=== PATIENT | female | born 1955 | race Caucasian/White ===

== ENCOUNTER 2019-04-24 07:04 | Outpatient (CLI) | payer BC, SELFPAY ==
--- NOTE | ~2019-04-24 | MM_ITS ---
EXAMINATION: MM screening marty BI w bebeto HISTORY: Screening mammogram, family history of breast cancer in her mother and sister. TECHNIQUE: Craniocaudal and mediolateral oblique 3-D tomosynthesis images were obtained and synthetic 2-D images were generated. CAD analysis was submitted and interpreted. COMPARISON: 04/22/2018, 04/17/2017, 04/15/2016 BREAST PARENCHYMAL COMPOSITION: There are scattered areas of fibroglandular density. FINDINGS: RIGHT BREAST: An asymmetry is present in the subareolar aspect of the breast on the craniocaudal view . LEFT BREAST: There is no evidence of suspicious mass, calcification, or architectural distortion to s uggest malignancy. There has been no significant interval change. IMPRESSION: 1. Subareolar right breast asymmetry on the craniocaudal view. 2. Additional mammographic views and possible breast ultrasound are recommended. BI-RADS Category 0: Incomplete: Needs additional imaging evaluation. Reviewed, dictated and finalized at location A. EF MATE IMPRESSION: 1. Subareolar right breast asymmetry on the craniocaudal view. 2. Additional mammographic views and possible breast ultrasound are recommended . BI-RADS Category 0: Incomplete: Needs additional imaging evaluation.
== END 2019-04-24 07:05 | disposition home or self-care (01) ==
PROVIDERS: PCP Internal Medicine; Visit Provider Obstetrics & Gynecology
DX: Z12.31 Encounter for screening mammogram for malignant neoplasm of breast (principal); R92.8 Other abnormal and inconclusive findings on diagnostic imaging of breast
CPT/HCPCS: 77063; 77067

== ENCOUNTER → 2019-05-02 09:08 | Outpatient (CLI) | payer BC, SELFPAY ==
--- NOTE | ~2019-05-02 | MMUS_ITS ---
EXAMINATION: MM diagnostic mammo unilat RT, US breast RT limited HISTORY: Right breast asymmetry on screening mammogram TECHNIQUE: Additional 3-D tomosynthesis images of the right breast were performed and synthetic 2-D i mages were generated. CAD analysis was submitted and interpreted. High resolution limited right breas t ultrasound was performed. COMPARISON: 04/24/2019, 04/22/2018, 04/17/2017, 04/15/2016 FINDINGS: MAMMOGRAPHIC FINDINGS: A subtle asymmetry persists in the subareolar aspect of the slightly inner right breast with spot com pression. No suspicious calcification or architectural distortion are identified. ULTRASOUND: There is no evidence of focal abnormal solid or cystic lesion in the vicinity of the mammographic fin ding in question. IMPRESSION: 1. Probably benign right breast asymmetry. 2. Recommend 6 month follow-up right diagnostic mammogram and possible ultrasound. BI-RADS category 3, probably benign findings. Reviewed, dictated and finalized at location A. DING ARCHITECTURAL DESIGNER IMPRESSION: 1. Probably benign right breast asymmetry. 2. Recommend 6 month follow-up right diagnostic mammogram and possible ultrasou nd. BI-RADS category 3, probably benign findings.
== END ==
PROVIDERS: PCP Internal Medicine; Visit Provider Obstetrics & Gynecology
DX: R92.8 Other abnormal and inconclusive findings on diagnostic imaging of breast (principal)
CPT/HCPCS: 76642; 77065

== ENCOUNTER 2019-09-15 07:58 | Outpatient (CLI) | payer BC, SELFPAY ==
--- NOTE | ~2019-09-15 | DEXA_ITS ---
Bone Density Report Name: Cierra Patel Age: 64 Sex: Female Ethnicity: White Date of : 1955 Indication: osteopenia;postmenopausal Referring Provider: JESUS NGUYEN Study: Bone densitometry was performed. Exam Date: September 15, 2019 Accession number: [id number] Bone Density: Region BMD T-score Z-score Classification AP Spine (L1-L4) 0.775 -2.5 -0.8 Osteoporosis Femoral Neck (Left) 0.661 -1.7 -0.2 Osteopenia Total Hip (Left) 0.826 -1.0 0.2 Normal Total Hip Bilateral Avg 0.800 -1.2 0.0 Osteopenia Femoral Neck (Right) 0.607 -2.2 -0.7 Osteopenia Total Hip (Right) 0.773 -1.4 -0.2 Osteopenia World Health Organization criteria for BMD impression classify patients as: Normal (T-score at or above -1.0), Osteopenia (T-score between -1.0 and -2.5), or Osteoporosis (T-score at or below -2.5). 10-year Fracture Risk: FRAX not reported because: Some T-score for Spine Total or Hip Total or Femoral Neck at or below -2.5 Previous Exams: Region Exam Age BMD T-score BMD Change BMD Change Date g/cm2 vs Baseline vs Previous AP Spine(L1-L4) 09/15/2019 64 0.775 -2.5 0.096(14.2%)# -0.008(-1.1%) 08/31/2017 62 0.784 -2.4 0.104(15.4%)# 0.009(1.2%)# 08/19/2015 60 0.774 -2.5 0.095(14.0%)# -0.012(-1.5%) 08/15/2013 58 0.786 -2.4 0.107(15.8%)# 0.050(6.8%)* 08/03/2011 56 0.736 -2.8 0.057(8.5%)# 0.057(8.5%)# 07/24/2009 54 0.679 -3.3 Total Hip(Left) 09/15/2019 64 0.826 -1.0 0.057(7.4%)# -0.026(-3.0%) 08/31/2017 62 0.851 -0.7 0.083(10.8%)# -0.058(-6.4%)# 08/19/2015 60 0.909 -0.3 0.141(18.3%)# 0.044(5.1%)* 08/15/2013 58 0.866 -0.6 0.097(12.6%)# 0.019(2.3%) 08/03/2011 56 0.846 -0.8 0.077(10.1%)# 0.077(10.1%)# 07/24/2009 54 0.769 -1.4 Total Hip(Right) 09/15/2019 64 0.773 -1.4 0.014(1.8%)# -0.044(-5.4%)* 08/31/2017 62 0.817 -1.0 0.058(7.6%)# -0.032(-3.7%)# 08/19/2015 60 0.848 -0.8 0.089(11.7%)# 0.014(1.6%) 08/15/2013 58 0.834 -0.9 0.075(9.9%)# 0.024(2.9%) 08/03/2011 56 0.811 -1.1 0.052(6.8%)# 0.052(6.8%)# 07/24/2009 54 0.759 -1.5 *Denotes significance at 95% confidence level, LSC for AP Spine = 0.022 g/cm2, LSC for Total Hip = 0.027 g/cm2 Clinical Information Provided by Patient: Has used the following medications: Vitamin D, Calcium Patient maximum height was 63 Menopause Age: 55 Does not regularly consume dairy products Onset of menses at age 12 Number of children 2
== END 2019-09-15 07:59 | disposition home or self-care (01) ==
PROVIDERS: PCP Internal Medicine; Visit Provider Obstetrics & Gynecology
DX: Z78.0 Asymptomatic menopausal state (principal); M81.0 Age-related osteoporosis without current pathological fracture; M85.852 Other specified disorders of bone density and structure, left thigh; M85.851 Other specified disorders of bone density and structure, right thigh
CPT/HCPCS: 77080

== ENCOUNTER 2019-11-07 11:12 | Outpatient (CLI) | payer BC, SELFPAY ==
--- NOTE | ~2019-11-07 | MM_ITS ---
EXAMINATION: MM diagnostic marty RT w bebeto HISTORY: Follow-up right breast asymmetry TECHNIQUE: Additional 3-D tomosynthesis images of the right breast were performed and synthetic 2-D i mages were generated. CAD analysis was submitted and interpreted. COMPARISON: 04/13/2015 BREAST PARENCHYMAL COMPOSITION: Breast composed of scattered areas of fibroglandular density FINDINGS: The right breast is stable without evidence for malignancy. No suspicious masses, calcifica tions or architectural distortion in the right breast to suggest malignancy. IMPRESSION: 1. No mammographic evidence for malignancy in the right breast. 2. Routine yearly screening mammogram and regular clinical breast examination are recommended. BI-RADS Category 1: Negative Reviewed, dictated and finalized at location A. IMPRESSION: 1. No mammographic evidence for malignancy in the right breast. 2. Routine yearly screening mammogram and regular clinical breast examination a re recommended. BI-RADS Category 1: Negative
== END 2019-11-07 11:13 | disposition home or self-care (01) ==
LOC: ANHIMG 11:12
PROVIDERS: PCP Internal Medicine; Visit Provider Obstetrics & Gynecology
DX: R92.8 Other abnormal and inconclusive findings on diagnostic imaging of breast (principal)
CPT/HCPCS: 77061; 77065; G0279

== ENCOUNTER 2020-05-01 08:27 | Outpatient (CLI) | payer BC, SELFPAY ==
--- NOTE | ~2020-05-01 | MM_ITS ---
EXAMINATION: MM screening marty BI w bebeto HISTORY: Screening TECHNIQUE: Craniocaudal and mediolateral oblique 3-D tomosynthesis images were obtained and synthetic 2-D images were generated. CAD analysis was submitted and interpreted. COMPARISON: Comparison to multiple prior studies sequentially, with oldest reviewed study dated 04/15. BREAST PARENCHYMAL COMPOSITION: The breasts are heterogeneously dense, which may obscure small masses . FINDINGS: There is no evidence of suspicious mass, calcification, or architectural distortion to sugg est malignancy in either breast. There has been no suspicious interval change. IMPRESSION: 1. No mammographic evidence of malignancy. 2. Recommend routine screening mammography in one year. BI-RADS Category 1: Negative Reviewed, dictated and finalized at location A. CE MANAGER
== END 2020-05-01 08:28 | disposition home or self-care (01) ==
LOC: ANHIMG 08:28
PROVIDERS: PCP Internal Medicine; Visit Provider Obstetrics & Gynecology
DX: Z12.31 Encounter for screening mammogram for malignant neoplasm of breast (principal)
CPT/HCPCS: 77063; 77067

== ENCOUNTER 2020-07-13 11:15 | Outpatient (CLI) | payer BC, SELFPAY ==
--- NOTE | ~2020-07-13 | CT_ITS ---
EXAMINATION: CT abdomen pelvis w con DATE: 07/13/2020 11:54 INDICATION: Right lower quadrant abdominal pain and swelling. TECHNIQUE: Computed tomography (CT) of the abdomen and pelvis was performed with 100 mL Omnipaque 350 intravenous contrast. Automated exposure control and iterative reconstruction technique were employe d. The dose-length product was 215.62 mGy-cm. COMPARISON: Chest CT 09/28/2017 FINDINGS: The visualized portions of the lung bases demonstrate mild atelectasis and scarring. There is mild bronchiectasis in right lower lobe and right middle lobe. No pleural effusion. The heart size is normal. No pericardial effusion. There is a 6 mm cyst in the liver. The gallbladder, pancreas, an d adrenal glands are normal. Calcifications in the spleen are consistent with old granulomatous disea se. There is a 13 mm cyst in right kidney. Left kidney is normal. There are no dilated loops of bowel . The appendix is not visualized. There are no pathologically enlarged lymph nodes. There is no free intraperitoneal fluid. There is moderate lumbar spondylosis. IMPRESSION: 1. No etiology for the patient's symptoms. Reviewed, dictated and finalized at location B.
[2020-07-13 11:47] LABS: Estimated Glomerular Filt Rate > 60
== END 2020-07-13 11:16 | disposition home or self-care (01) ==
PROVIDERS: PCP Internal Medicine; Visit Provider Internal Medicine
DX: R19.03 Right lower quadrant abdominal swelling, mass and lump (principal)
CPT/HCPCS: 74177; Q9967

== ENCOUNTER 2021-03-23 12:58 | Outpatient (CLI) | payer BC, SELFPAY ==
[2021-03-23 14:36] LABS: Influenza A QL RT-PCR Negative (Negative); Influenza B QL RT-PCR Negative (Negative); SARS-CoV-2 RNA PCR Positive (Negative)
== END 2021-03-23 12:59 | disposition home or self-care (01) ==
LOC: CHSLAB 13:01
PROVIDERS: PCP Internal Medicine; Visit Provider Internal Medicine
DX: U07.1 COVID-19 (principal); R68.89 Other general symptoms and signs
CPT/HCPCS: 87502; C9803; U0003; U0005

== ENCOUNTER 2021-05-02 08:46 | Outpatient (CLI) | payer MEDICARE, SELFPAY ==
--- NOTE | ~2021-05-02 | MM_ITS ---
EXAMINATION: MM screening marty BI w bebeto HISTORY: Screening TECHNIQUE: Craniocaudal and mediolateral oblique 3-D tomosynthesis images were obtained and synthetic 2-D images were generated. CAD analysis was submitted and interpreted. COMPARISON: Comparison to multiple prior studies sequentially, with oldest reviewed study dated 04/17. BREAST PARENCHYMAL COMPOSITION: There are scattered areas of fibroglandular density. FINDINGS: There is no evidence of suspicious mass, calcification, or architectural distortion to sugg est malignancy in either breast. There has been no suspicious interval change. IMPRESSION: 1. No mammographic evidence of malignancy. 2. Recommend routine screening mammography in one year. BI-RADS Category 1: Negative Reviewed, dictated and finalized at location A. NIB GRINDER
== END 2021-05-02 08:47 | disposition home or self-care (01) ==
LOC: ANHIMG 08:49
PROVIDERS: PCP Internal Medicine; Visit Provider Obstetrics & Gynecology
DX: Z12.31 Encounter for screening mammogram for malignant neoplasm of breast (principal)
CPT/HCPCS: 77063; 77067

== ENCOUNTER 2021-09-30 08:53 | Outpatient (CLI) | payer MEDICARE, SELFPAY ==
--- NOTE | ~2021-09-30 | US_ITS ---
EXAMINATION: US abdomen complete DATE: 09/30/2021 09:47 INDICATION: Epigastric pain TECHNIQUE: Multiple grayscale and Doppler ultrasound images of the abdomen were obtained. COMPARISON: 07/31/2018; CT, 07/13/2020 FINDINGS: Bowel gas obscures visualization of the pancreas. The visualized portions of the pancreas a re unremarkable. The liver is normal with normal echogenicity and echotexture. No surface nodularity. Normal hepatopetal flow in the main portal vein. The gallbladder is normal with no abnormal wall thi ckening, pericholecystic fluid or stones. The normal common bile duct measures 2 mm. There was no son ographic Chopra sign. The visualized portions of the aorta and inferior vena cava are normal. The right kidney measures 8.1 x 3.2 x 3.5 cm and contains a 1.5 cm cyst. The left kidney measures 9.7 x 4.3 x 5.5 cm. The kidneys demonstrate normal parenchymal echogenicity. There is no hydronephrosis. The spleen is normal in appearance and measures 9.4 cm. IMPRESSION: 1. No sonographic correlate for the patient's symptoms. Reviewed, dictated and finalized at location B.
== END 2021-09-30 08:54 | disposition home or self-care (01) ==
PROVIDERS: PCP Internal Medicine; Visit Provider Internal Medicine
DX: R10.13 Epigastric pain (principal); R10.11 Right upper quadrant pain
CPT/HCPCS: 76700

== ENCOUNTER 2021-10-28 08:53 | Outpatient (CLI) | payer MEDICARE, SELFPAY ==
--- NOTE | ~2021-10-28 | XR_ITS ---
EXAMINATION:XR_CERV2-3V_CR, XR thoracic spine 3V DATE: 10/28/2021 09:22 INDICATION: Right sided neck and shoulder pain radiating down the arm TECHNIQUE: 1. AP, lateral, lateral swimmer's and odontoid views of the cervical spine are provided. 2. AP, lateral and lateral swimmer's views of the thoracic spine were obtained. COMPARISON: None FINDINGS: Cervical spine: Alignment is normal. Odontoid is intact. Normal atlantoaxial interval. Vertebral body heights are no rmal. Disc spaces are normal. Multilevel mild uncovertebral osteoarthritis and relatively symmetric m oderate cervical facet osteoarthritis. Prevertebral soft tissues are normal. Thoracic spine: Degree thoracic dextrocurvature between T4 and T8. Vertebral body heights are normal. Multilevel mild disc height loss in the mid to lower thoracic spine with small degenerative endplate osteophytes. Mo derate disc height loss at L1-L2. Paravertebral soft tissues are unremarkable. Visualized portion of the lungs are clear with no pleural effusion or pneumothorax. Cardiomediastinal silhouette is normal. IMPRESSION: 1. Multilevel moderate bilateral cervical facet osteoarthritis without associated cervical disc heigh t loss. 2. Mild thoracic and moderate upper lumbar spondylosis. Reviewed, dictated and finalized at location A. IMPRESSION: 1. Multilevel moderate bilateral cervical facet osteoarthritis without associat ed cervical disc height loss. 2. Mild thoracic and moderate upper lumbar spondylosis.
--- NOTE | ~2021-10-28 | XR_ITS ---
XR shoulder RT min 2V 10/28/2021 09:22 INDICATION: Right shoulder pain PROCEDURE: 4 views right shoulder COMPARISON: No prior studies for comparison. FINDINGS: Fracture, dislocation or subluxation is not identified. The soft tissues appear within norm al limits. No foreign bodies are identified. IMPRESSION: 1: NO ACUTE BONE OR JOINT ABNORMALITY IDENTIFIED. Reviewed, dictated and finalized at location A.
== END 2021-10-28 08:54 | disposition home or self-care (01) ==
PROVIDERS: PCP Internal Medicine; Visit Provider Internal Medicine
DX: M25.511 Pain in right shoulder (principal); M85.88 Other specified disorders of bone density and structure, other site; M47.816 Spondylosis without myelopathy or radiculopathy, lumbar region; M47.814 Spondylosis without myelopathy or radiculopathy, thoracic region
CPT/HCPCS: 72040; 72072; 73030

== ENCOUNTER 2021-11-09 13:53 | Outpatient (CLI) | payer MEDICARE, SELFPAY ==
--- NOTE | ~2021-11-09 | DEXA_ITS ---
Bone Density Report Name: THOMAS PONCE Age: 66 Sex: Female Ethnicity: White Date of : 1955 Indication: postmenopausal osteoporosis; monitoring treatment; height loss; Referring Provider: JOHN VIDALES Study: Bone densitometry was performed. Exam Date: November 09, 2021 Accession number: [id number] Bone Density: Region BMD T-score Z-score Classification AP Spine(L1-L4) 0.793 -2.3 -0.4 Osteopenia Femoral Neck (Left) 0.678 -1.5 0.1 Osteopenia Total Hip (Left) 0.818 -1.0 0.3 Normal Femoral Neck (Right) 0.632 -2.0 -0.4 Osteopenia Total Hip (Right) 0.798 -1.2 0.1 Osteopenia Total Hip Mean 0.808 -1.1 0.2 Osteopenia World Health Organization criteria for BMD impression classify patients as: Normal (T-score at or above -1.0), Osteopenia (T-score between -1.0 and -2.5), or Osteoporosis (T-score at or below -2.5). 10-year Fracture Risk(1): Major Osteoporotic Fracture 9.8% Hip Fracture 1.6% Reported Risk Factors: [place] (), Neck BMD=0.632, BMI=21.4 (1) FRAX(R) Version 3.08. Fracture probability calculated for an untreated patient. Fracture probability may be lower if the patient has received treatment. Previous Exams: Region Exam Age BMD T-score BMD Change BMD Change Date g/cm2 vs Baseline vs Previous AP Spine (L1-L4) 11/09/2021 66 0.793 -2.3 0.057 (7.7%)* 0.018 (2.3%)# 09/15/2019 64 0.775 -2.5 0.039 (5.3%)# -0.008 (-1.1%) 08/31/2017 62 0.784 -2.4 0.047 (6.4%)# 0.009 (1.2%)# 08/19/2015 60 0.774 -2.5 0.038 (5.1%)* -0.012 (-1.5%) 08/15/2013 58 0.786 -2.4 0.050 (6.8%)* 0.050 (6.8%)* 08/03/2011 56 0.736 -2.8 Total Hip(Left) 11/09/2021 66 0.818 -1.0 -0.028 (-3.4%) -0.008 (-1.0%) 09/15/2019 64 0.826 -1.0 -0.020 (-2.4%) -0.026 (-3.0%) 08/31/2017 62 0.851 -0.7 0.005 (0.6%)# -0.058 (-6.4%) 08/19/2015 60 0.909 -0.3 0.063 (7.5%)* 0.044 (5.1%)* 08/15/2013 58 0.866 -0.6 0.019 (2.3%) 0.019 (2.3%) 08/03/2011 56 0.846 -0.8 Total Hip(Right) 11/09/2021 66 0.798 -1.2 -0.013 (-1.6%) 0.025 (3.3%) 09/15/2019 64 0.773 -1.4 -0.038 (-4.7%) -0.044 (-5.4%) 08/31/2017 62 0.817 -1.0 0.006 (0.7%)# -0.032 (-3.7%) 08/19/2015 60 0.848 -0.8 0.037 (4.6%)* 0.014 (1.6%) 08/15/2013 58 0.834 -0.9 0.024 (2.9%) 0.024 (2.9%) 08/03/2011 56 0.811 -1.1 *Denotes significance at 95% confidence level, LSC for AP Spine = 0.022 g/cm2, LSC for Total Hip = 0.027 g/cm2 # Denotes dissimilar scan types or analysis methods Clinical Info
== END 2021-11-09 13:54 | disposition home or self-care (01) ==
PROVIDERS: PCP Internal Medicine; Referring Provider Obstetrics & Gynecology; Visit Provider Internal Medicine
DX: Z78.0 Asymptomatic menopausal state (principal); M81.0 Age-related osteoporosis without current pathological fracture; M85.88 Other specified disorders of bone density and structure, other site; M85.852 Other specified disorders of bone density and structure, left thigh; M85.851 Other specified disorders of bone density and structure, right thigh
CPT/HCPCS: 77080

== ENCOUNTER 2022-02-01 13:56 | Outpatient (CLI) | payer MEDICARE, SELFPAY ==
--- NOTE | ~2022-02-01 | XR_ITS ---
EXAMINATION: XR lumbar spine 6V w bending DATE: 02/01/2022 14:19 INDICATION: Left-sided groin pain TECHNIQUE: Anteroposterior, lateral in neutral, flexion and extension, and bilateral oblique views of the lumbar spine, and cone-down lateral view of the lumbosacral junction were obtained. COMPARISON: 12/01/2011 FINDINGS: There is no fracture, dislocation, or subluxation. There is no laxity with flexion or exten renay. The vertebral body heights are normal. There is moderate loss of intervertebral disc space heig ht at L1-2 and moderate loss of disc space height throughout the remainder of the lumbar spine. The v ertebral body heights are normal. Small degenerative osteophytes project from the anterior endplates of multiple vertebral bodies. There is moderate facet joint osteoarthritis of the lower lumbar spine. IMPRESSION: 1. Mild lumbar spondylosis without acute findings. Reviewed, dictated and finalized at location B. OPERATOR
--- NOTE | ~2022-02-01 | XR_ITS ---
EXAM: XR pelvis 1-2V DATE: 02/01/2022 14:19 HISTORY: R10.30 - LEFT SIDE GROIN HIP PAIN. NKI . COMPARISON: 12/01/2011. FINDINGS: Decreased mineralization. No fracture or dislocation. No lytic or blastic lesion. Mild deg enerative change in the lumbar spine, bilateral hips, and pubic symphysis. Mild pelvic and hip enthes opathy. Amorphous foci of calcification at the left greater trochanter. No erosion or periosteal workman ge. Soft tissues within normal limits. IMPRESSION: Mild bilateral hip osteoarthritic. Mild calcific tendinitis at the left greater trochante r. Reviewed, dictated and finalized at location K. LATOR MECHANIC IMPRESSION: Mild bilateral hip osteoarthritic. Mild calcific tendinitis at the left greater trochanter.
== END 2022-02-01 13:57 | disposition home or self-care (01) ==
LOC: ANHIMG 13:59
PROVIDERS: PCP Internal Medicine; Visit Provider Internal Medicine
DX: R10.30 Lower abdominal pain, unspecified (principal); M47.896 Other spondylosis, lumbar region
CPT/HCPCS: 72114; 72170

== ENCOUNTER → 2022-02-11 09:24 | Outpatient (CLI) | payer MEDICARE, SELFPAY ==
--- NOTE | ~2022-02-11 | MR_ITS ---
EXAMINATION: MR lumbar spine wo con DATE: 02/11/2022 10:07 INDICATION: Low back pain. TECHNIQUE: Magnetic resonance imaging (MRI) of the lumbar spine was performed without intravenous con trast. Sequences included sagittal T2-weighted FSE, sagittal T2-weighted FS FSE, sagittal T1-weighted FSE, and axial T2-weighted FSE. COMPARISON: Lumbar spine radiographs dated 02/11/2022 FINDINGS: 13 degree lumbar dextroscoliosis. Sagittal alignment is normal. Vertebral body heights are normal. Mo derate right anterior predominant disc height loss at L1-L2 with associated fibrofatty degenerative e ndplate changes. Mild right-sided disc height loss at T12-L1, moderate left-sided disc height loss at L2-L3 and L3-L4 and more diffuse mild disc height loss at L4-L5 and L5-S1. T1 hyperintense hemangiom as at L3 and T12. The conus medullaris terminates at L1-L2. There is normal signal in the caudal spin al cord. 1.8 cm T2 hyperintense right renal cyst. Paravertebral soft tissues are otherwise unremarkab le. The following disc levels are specifically discussed: T12-L1: Disc is mildly bulging. There is mild bilateral facet joint osteoarthritis. There is no neura l foraminal stenosis. There is negligible central canal stenosis. L1-L2: Diffuse disc bulge with superimposed annular fissure and small right central disc extrusion wi th disc material extending up to 5 mm caudal to the level of the superior endplate of L2. There is mi ld bilateral facet joint osteoarthritis. There is mild bilateral neural foraminal stenosis. There is mild central canal stenosis. L2-L3: Disc is mildly bulging with right foraminal zone annular fissure There is mild bilateral facet joint osteoarthritis. There is mild bilateral neural foraminal stenosis. There is mild central canal stenosis. L3-L4: Moderate diffuse disc bulge with right foraminal zone annular fissure. There is mild right and moderate left facet joint osteoarthritis. There is mild bilateral neural foraminal stenosis. There i s mild central canal stenosis. L4-L5: Moderate diffuse disc bulge with superimposed annular fissures at the bilateral foraminal zone s. There is moderate to severe bilateral facet joint osteoarthritis. There is mild right and mild to moderate left neural foraminal stenosis. There is mild central canal stenosis. L5-S1: Disc is mildly bulging with left foraminal zone annular fissure. There is moderate bilateral f acet joint osteoarthritis. There is minimal bilateral neural foraminal stenosis. There is no central canal stenosis. IMPRESSION: 1. 13 degrees lumbar dextroscoliosis with moderate spondylosis. Reviewed, dictated and finalized at location A. ET TEST FIRE WORKER
== END ==
PROVIDERS: PCP Internal Medicine; Visit Provider Internal Medicine
DX: R20.2 Paresthesia of skin (principal); M47.896 Other spondylosis, lumbar region
CPT/HCPCS: 72148

== ENCOUNTER 2022-04-25 12:39 | Outpatient (CLI) | payer MEDICARE, SELFPAY ==
--- NOTE | ~2022-04-25 | XR_ITS ---
EXAMINATION: XR lg joint inject/asp w image DATE: 04/25/2022 13:48 INDICATION: Left hip arthritis. TECHNIQUE: A time-out was performed to verify the patient's name, date of , and procedure to b e performed. The procedure including the risks, benefits, and alternatives was discussed with the pat ient. Risks discussed included bleeding and infection. The patient understood the risks and agreed to proceed. The skin overlying the left hip joint was prepped and draped in usual sterile fashion. An esthetic was administered with 1% lidocaine subcutaneously. A 22 G needle was advanced under fluoros copic guidance into the joint. Subsequently, injectate consisting of 2 mL 0.5% bupivacaine and 1 mL 80 mg/mL Depo-Medrol was instilled. The needle was removed and the entry site was cleaned and dresse d. There were no immediate complications. Fluoroscopy exposure time was 0.1 minutes. The total numbe r of images was 1. FINDINGS: Real-time fluoroscopy demonstrates the needle in the left hip joint. Patient's pain prior t o procedure:7/10. Patient's pain following the procedure: 0/10. IMPRESSION: 1. Fluoroscopy guided left hip joint injection of local anesthetic and steroid with decrease in the p atient's presenting pain. Reviewed, dictated and finalized at location A. LOPMENTAL THERAPIST IMPRESSION: 1. Fluoroscopy guided left hip joint injection of local anesthetic and steroid with decrease in the patient's presenting pain.
== END 2022-04-25 12:40 | disposition home or self-care (01) ==
PROVIDERS: PCP Internal Medicine; Visit Provider Nurse Practitioner Family
DX: M16.12 Unilateral primary osteoarthritis, left hip (principal)
CPT/HCPCS: 20610; 77002

== ENCOUNTER 2022-06-05 07:15 | Outpatient (CLI) | payer MEDICARE, SELFPAY ==
--- NOTE | ~2022-06-05 | MM_ITS ---
EXAMINATION: MM screening marty BI w bebeto HISTORY: Screening mammogram, family history of breast cancer in her mother and sister. TECHNIQUE: Craniocaudal and mediolateral oblique 3-D tomosynthesis images were obtained and synthetic 2-D images were generated. CAD analysis was submitted and interpreted. COMPARISON: 05/02/2021, 05/01/2020, 04/24/2019 BREAST PARENCHYMAL COMPOSITION:The breasts are heterogeneously dense, which may obscure small masses. FINDINGS: No suspicious mass, calcification, or architectural distortion are identified in either farhan ast to suggest malignancy. There has been no suspicious interval change. IMPRESSION: No mammographic evidence of malignancy. Recommend routine screening mammography in one year. BI-RADS Category 1: Negative Reviewed, dictated and finalized at location .
== END 2022-06-05 07:16 | disposition home or self-care (01) ==
LOC: ANHIMG 07:17
PROVIDERS: PCP Internal Medicine; Visit Provider Obstetrics & Gynecology
DX: Z12.31 Encounter for screening mammogram for malignant neoplasm of breast (principal)
CPT/HCPCS: 77063; 77067

== ENCOUNTER 2022-07-18 08:38 | Outpatient (CLI) | payer MEDICARE, SELFPAY ==
--- NOTE | ~2022-07-18 | XR_ITS ---
EXAMINATION: XR chest 2V DATE: 07/18/2022 09:03 INDICATION: Shortness of breath TECHNIQUE: PA and lateral views of the chest are obtained. COMPARISON: None available FINDINGS: The lungs are free of acute opacities. There appears to be a 6 mm nodule in the left lower lobe. No pleural effusion or pneumothorax. The cardiomediastinal silhouette is normal. There is mild thoracic spondylosis. IMPRESSION: 1. Possible nodule of the left lower lobe. Follow-up with low-dose CT of the chest is recommended. Reviewed, dictated and finalized at location L. IMPRESSION: 1. Possible nodule of the left lower lobe. Follow-up with low-dose CT of the ch est is recommended.
[2022-07-18 09:35] LABS: Free T4 Free Thyroxine 1.25 ng/mL (0.78-2.19)
[2022-07-18 09:41] LABS: Thyroid Stimulating Hormone 0.597 uIU/mL (0.465-4.680)
== END 2022-07-18 08:39 | disposition home or self-care (01) ==
PROVIDERS: PCP Internal Medicine; Visit Provider Internal Medicine
DX: R06.02 Shortness of breath (principal); R00.2 Palpitations; Z13.29 Encounter for screening for other suspected endocrine disorder
CPT/HCPCS: 36415; 71046; 84439; 84443

== ENCOUNTER 2022-07-20 08:33 | Outpatient (CLI) | payer MEDICARE, SELFPAY ==
--- NOTE | ~2022-07-20 | CT_ITS ---
Clinical Indication: Abnormal chest x-ray CT Scan of the Chest with Contrast: Technique: Contiguous sections were acquired throughout the chest after intravenous administration of 75 cc of Omnipaque 350. Dose reduction technique was used on this scan by utilizing automated exposu re control and iterative reconstruction technique. The dose-length product (DLP) was 126.79 mGy-cm. COMPARISON: Chest x-ray dated 07/18/2022, prior CT dated 09/28/2017 Findings: There is no evidence of any significant mediastinal, hilar or axillary lymphadenopathy. There is no f illing defect in the pulmonary arterial tree to suggest pulmonary embolus. There is no evidence of ao rtic dissection or aneurysm. There is no evidence of pleural or pericardial effusion. There is linear scarring at the lingula. There is a somewhat irregular/amorphous nodular opacity in t he medial right upper lobe measuring approximately 1.5 cm in maximum diameter (axial image 50). Images through the upper abdomen reveal no abnormalities. Impression: Irregular somewhat nodular 1.5 cm opacity in the medial right upper lobe, nonspecific. This could ref lect focal atelectasis or scarring, or focal pneumonitis. Neoplastic lesion not completely excluded, although the morphology is less suggestive of such a diagnosis. Recommend short-term follow-up CT in 1-3 months to reassess. No other significant findings. Reviewed, dictated and finalized at [facility]. Impression: Irregular somewhat nodular 1.5 cm opacity in the medial right upper lobe, nonsp ecific. This could reflect focal atelectasis or scarring, or focal pneumonitis. Neoplastic lesion not completely excluded, although the morphology is less sug gestive of such a diagnosis. Recommend short-term follow-up CT in 1-3 months to reassess. No other significant findings.
== END 2022-07-20 08:34 | disposition home or self-care (01) ==
PROVIDERS: PCP Internal Medicine; Visit Provider Internal Medicine
DX: R91.1 Solitary pulmonary nodule (principal); R93.89 Abnormal findings on diagnostic imaging of other specified body structures
CPT/HCPCS: 71260; Q9967

== ENCOUNTER 2022-07-22 09:34 | Outpatient (CLI) | payer MEDICARE, SELFPAY ==
--- NOTE | ~2022-07-22 | XR_ITS ---
EXAMINATION: SNIFF TEST W/O CXR +FLUORO<1HR DATE: 02/22/11 11:13:00 INDICATION: Personal history of other specified conditions TECHNIQUE: Fluoroscopy was utilized for evaluation of diaphragmatic excursion with rapid inspiration. Fluoroscopy exposure time was 0.7 minutes. The DAP for this procedure was 5.5 Gycm2. COMPARISON: None. FINDINGS: There is relatively symmetric caudal excursion of both the left and right leaves of the nicole phragm with rapid inspiration. The lungs are free of acute opacities. No pleural effusion or pneumoth orax. The cardiomediastinal silhouette is normal. There is moderate thoracic spondylosis. IMPRESSION: 1. Normal sniff test. No evidence of phrenic nerve palsy. Reviewed, dictated and finalized at location A.
== END 2022-07-22 09:35 | disposition home or self-care (01) ==
PROVIDERS: PCP Internal Medicine; Visit Provider Internal Medicine
DX: R06.02 Shortness of breath (principal); Z87.898 Personal history of other specified conditions
CPT/HCPCS: 71046; 76000

== ENCOUNTER 2022-07-31 13:33 | Outpatient (CLI) | payer MEDICARE, SELFPAY ==
--- NOTE | 2022-07-31 16:49 | WPDPFTINT ---
PFT Procedure Performed PFT Procedure Performed Spirometry with Pre/Post Bronchodilator Plethysmography (Lung Vol) Diffusing Cap (DLCO) Flow Vol Loop PFT Interpretation This is a pulmonary function test with pre and post-bronchodilator spirometry, plethysmography and diffusing capacity. The test was performed and results interpreted in accordance with the 2019 and 2005 ATS/ERS Task Force guidelines respectively using the Global Lung Function Initiative-2012 reference equations. Patient demonstrated good effort and cooperation. Reproducibility criteria were met. The quality of the pre bronchodilator spirometry maneuver was Grade A and post bronchodilator spirometry maneuver was Grade A. Findings: Spirometry: The contour the inspiratory and expiratory flow tracing are normal. The pre bronchodilator FVC is 3.13 L, 110% predicted. The pre bronchodilator FEV1 is 2.35 L, 106% predicted. The pre bronchodilator FEV1: FVC ratio 75%. The post bronchodilator FVC is 3.25 L, representing a 4% increase. The post bronchodilator FEV1 is 2.46 L, representing a 4% increase. The post bronchodilator FEV1: FVC ratio 75%. Plethysmography: The total lung capacity is 4.97 L, 101% predicted. The functional residual capacity is 3.10 L, 111% predicted. The residual volume is 1.84 L, 88% predicted. Diffusing capacity: The diffusing capacity unadjusted for hemoglobin and carboxyhemoglobin is 18.9, 92% predicted. The diffusing capacity adjusted for alveolar volume is 4.94, 113% predicted. Impression: The spirometry is normal without evidence of an obstructive abnormality. There is no significant improvement after inhaling a single dose of albuterol. The lung volumes are normal. The diffusing capacity is normal. There are no prior studies for comparison
== END 2022-07-31 13:34 | disposition home or self-care (01) ==
LOC: ANHLAB 13:33
PROVIDERS: PCP Internal Medicine; Visit Provider Internal Medicine
DX: R06.02 Shortness of breath (principal)
CPT/HCPCS: 94060; 94726; 94729

== ENCOUNTER 2022-08-01 08:00 | Outpatient (CLI) | payer MEDICARE, SELFPAY ==
--- NOTE | ~2022-08-01 | PE_ITS ---
EXAMINATION: PET skull to mid thigh DATE: 08/01/2022 09:50 INDICATION: 1.5 cm solitary right upper lobe nodule TECHNIQUE: Blood glucose level was 88 mg/dL. 8.772 mCi of 18-fluorodeoxyglucose (18-FDG) was administ ered i.v. Low dose computed tomography (CT) images were acquired from the base of the brain to the pr oximal thighs for attenuation correction and anatomic localization. Positron emission tomography (PET ) images were acquired in the same distribution beginning 54 minutes after injection. Images includin g fused PET/CT images were reconstructed in axial, coronal, and sagittal planes. Automated exposure c ontrol technique was employed. The dose-length product was 481.20mGy-cm. COMPARISON: Chest CT dated 07/20/2022 FINDINGS: Head/neck: There is symmetric increased activity in the oral cavity, palatine tonsils, parotid glands, submandi bular glands, laryngeal muscles and ocular muscles without CT correlate, likely physiologic. No patho logically enlarged cervical lymphadenopathy or suspicious foci of increased FDG uptake in the visuali zed head or neck. Chest: Mild FDG activity associated with the previous noted small subsolid nodular lesion in the paramediast inal anterior segment of the right upper lobe with maximal SUV of 3.2 which remains of slightly lower intensity than the activity in the liver. The lesion measures approximately 12 x 6 mm in maximal nicole meter on the current study. No abnormal uptake associated with a 4 mm likely intrafissural lymph node along the right minor fissure. Mild linear bands of discoid atelectasis/scarring in the lingula, rig ht middle and right lower lobes. Heart size is normal. No pericardial effusion. Thoracic aorta is nor mal in caliber. No pathologically enlarged or abnormally FDG avid thoracic lymphadenopathy. Abdomen/pelvis/proximal thighs: Physiologic renal accumulation and excretion of FDG activity in the kidneys, bladder and along portio ns of ureters. Normal degree and heterogenous pattern of increased uptake throughout the liver withou t radiologic correlate or dominant FDG avid lesion. Several splenic calcific lesions consistent with old granulomatous disease. The gallbladder, pancreas and bilateral adrenal glands are normal. Mild up take scattered throughout the bowels without radiologic correlate, also likely physiologic. Uterus is unremarkable. No other abnormal foci of increased FDG uptake or pathologically enlarged lymphadenopa thy in the abdomen, pelvis or proximal thighs. Musculoskeletal: There is moderate left-sided and mild right-sided uptake associated with severe bilateral facet osteo arthritis at L4-L5. Additional mild likely degenerative versus enthesopathic uptake without radiologi c correlate located at the tips of the L2-L4 spinous processes no suspicious lytic, blastic or other abnormally FDG avid bone lesions. IMPRESSION: 1. Mild FDG activity associated with the previously noted small paramediastinal nodule in the anterio r left upper lobe which appears slightly decreased in size in the current study. While the relatively low FDG activity and suggestion of decreased size is reassuring the nodule remains indeterminate for low-grade malignancy versus an infectious/inflammatory nodule and would recommend 3 month follow-up low-dose noncontrast chest CT. 2. No FDG avid lesions suspicious for metastatic disease. Reviewed, dictated and finalized at location A. IMPRESSION: 1. Mild FDG activity associated with the previously noted small paramediastinal nodule in the anterior left upper lobe which appears slightly decreased in siz e in the current study. While the relatively low FDG activity and suggestion of decreased size is reassuring the nodule remains indeterminate for low-grade ma lignancy versus an infectious/inflammatory
[2022-08-01 08:22] LABS: Glucose Point of Care 88 mg/dl (65-105)
== END 2022-08-01 08:01 | disposition home or self-care (01) ==
PROVIDERS: PCP Internal Medicine; Visit Provider Internal Medicine
DX: R91.1 Solitary pulmonary nodule (principal); R93.89 Abnormal findings on diagnostic imaging of other specified body structures
CPT/HCPCS: 78815; A9552

== ENCOUNTER 2022-08-07 11:05 | Outpatient (CLI) | payer MEDICARE, SELFPAY ==
[2022-08-07 11:18] LABS: Basophils Percent Auto 0.6 % (0.2-1.2); Eosinophils Absolute Auto 0.2 K/mm3 (0-0.3); Eosinophils Percent Auto 3.5 % (0-4.4); Hematocrit 41.9 % (37.0-47.0); Hemoglobin 13.4 g/dL (12.0-15.0); Immature Granulocyte Absolute 0.03 K/mm3 (0.00-0.031); Immature Granulocyte Percent A 0.6 % (0-0.5); Lymphocytes Absolute Auto 1.34 K/mm3 (0.9-3.2); Lymphocytes Percent Auto 25.9 % (18.3-44.2); Mean Corpuscular Hemoglobin 30.8 pg (26-34); Mean Corpuscular Volume 96.3 fl (80-100); Mean Platelet Volume 10.9 fl (7.4-10.4); Monocytes Absolute Auto 0.4 K/mm3 (0.1-0.6); Monocytes Percent Auto 7.9 % (2.6-8.5); Neutrophils Absolute Auto 3.2 K/mm3 (1.3-6.7); Neutrophils Percent Auto 61.5 % (45.5-73.1); Platelet Count Result 152 k/mm3 (150-375); Red Blood Count 4.35 M/mm3 (4.2-5.4); Red Cell Distribution Width 13.4 % (11.5-14.5); White Blood Count 5.2 K/mm3 (4.5-10.0)
[2022-08-07 11:34] LABS: INR 0.9
== END 2022-08-07 11:06 | disposition home or self-care (01) ==
PROVIDERS: PCP Internal Medicine; Visit Provider Internal Medicine
DX: R23.3 Spontaneous ecchymoses (principal); R53.83 Other fatigue
CPT/HCPCS: 36415; 85025; 85610

== ENCOUNTER 2022-11-01 09:13 | Outpatient (CLI) | payer MEDICARE, SELFPAY ==
--- NOTE | ~2022-11-01 | CT_ITS ---
EXAMINATION:CT diagnostic chest wo con DATE: 11/01/2022 09:43 INDICATION: Solitary pulmonary nodule. TECHNIQUE: Computed tomography (CT) of the chest was performed without intravenous contrast. Automate d exposure control and iterative reconstruction technique were employed. The dose-length product (DLP ) was 62.46 mGy-cm. COMPARISON: Chest CT 07/20/2022, PET/CT 08/01/2022 FINDINGS: There is mild scarring at the lung apices. There is a 4 mm nodule at minor fissure without change, likely benign. There is an 8 mm part solid nodule in right upper lobe that previously measure d 17 mm, likely benign. There is mild atelectasis bilaterally. Calcified right hilar and mediastinal lymph nodes are consistent with old granulomatous disease. No pleural effusion. The heart size is nor mal. No pericardial effusion. There is a small sliding hiatal hernia. Calcifications in the spleen ar e consistent with old granulomatous disease. There is a 1.5 cm cyst in right kidney. There is mild th oracic spondylosis. IMPRESSION: 1. Right upper lobe pulmonary nodule with interval improvement, likely benign. Reviewed, dictated and finalized at location A.
== END 2022-11-01 09:14 | disposition home or self-care (01) ==
PROVIDERS: PCP Internal Medicine; Visit Provider Internal Medicine
DX: R91.1 Solitary pulmonary nodule (principal)
CPT/HCPCS: 71250

== ENCOUNTER 2023-03-09 12:40 | Outpatient (CLI) | payer MEDICARE, SELFPAY ==
--- NOTE | ~2023-03-09 | DEXA_ITS ---
Bone Density Report Name: THOMAS PONCE Age: 67 Sex: Female Ethnicity: White Date of : 1955 Indication: osteopenia; monitoring treatment; height loss; postmenopausal Referring Provider: JOHN VIDALES Study: Bone densitometry was performed. Exam Date: March 09, 2023 Accession number: [id number] Bone Density: Region BMD T-score Z-score Classification AP Spine(L1-L4) 0.800 -2.2 -0.3 Osteopenia Femoral Neck (Left) 0.673 -1.6 0.1 Osteopenia Total Hip (Left) 0.804 -1.1 0.3 Osteopenia Femoral Neck (Right) 0.618 -2.1 -0.4 Osteopenia Total Hip (Right) 0.766 -1.4 -0.1 Osteopenia Total Hip Mean 0.785 -1.3 0.1 Osteopenia World Health Organization criteria for BMD impression classify patients as: Normal (T-score at or above -1.0), Osteopenia (T-score between -1.0 and -2.5), or Osteoporosis (T-score at or below -2.5). 10-year Fracture Risk: FRAX not reported because: Treated for osteoporosis Previous Exams: Region Exam Age BMD T-score BMD Change BMD Change Date g/cm2 vs Baseline vs Previous AP Spine (L1-L4) 03/09/2023 67 0.800 -2.2 0.063 (8.6%)# 0.007 (0.9%)# 11/09/2021 66 0.793 -2.3 0.057 (7.7%)* 0.018 (2.3%)# 09/15/2019 64 0.775 -2.5 0.039 (5.3%)# -0.008 (-1.1%) 08/31/2017 62 0.784 -2.4 0.047 (6.4%)# 0.009 (1.2%)# 08/19/2015 60 0.774 -2.5 0.038 (5.1%)* -0.012 (-1.5%) 08/15/2013 58 0.786 -2.4 0.050 (6.8%)* 0.050 (6.8%)* 08/03/2011 56 0.736 -2.8 Total Hip(Left) 03/09/2023 67 0.804 -1.1 -0.042 (-4.9%) -0.013 (-1.6%) 11/09/2021 66 0.818 -1.0 -0.028 (-3.4%) -0.008 (-1.0%) 09/15/2019 64 0.826 -1.0 -0.020 (-2.4%) -0.026 (-3.0%) 08/31/2017 62 0.851 -0.7 0.005 (0.6%)# -0.058 (-6.4%) 08/19/2015 60 0.909 -0.3 0.063 (7.5%)* 0.044 (5.1%)* 08/15/2013 58 0.866 -0.6 0.019 (2.3%) 0.019 (2.3%) 08/03/2011 56 0.846 -0.8 Total Hip(Right) 03/09/2023 67 0.766 -1.4 -0.045 (-5.5%) -0.032 (-4.0%) 11/09/2021 66 0.798 -1.2 -0.013 (-1.6%) 0.025 (3.3%) 09/15/2019 64 0.773 -1.4 -0.038 (-4.7%) -0.044 (-5.4%) 08/31/2017 62 0.817 -1.0 0.006 (0.7%)# -0.032 (-3.7%) 08/19/2015 60 0.848 -0.8 0.037 (4.6%)* 0.014 (1.6%) 08/15/2013 58 0.834 -0.9 0.024 (2.9%) 0.024 (2.9%) 08/03/2011 56 0.811 -1.1 *Denotes significance at 95% confidence level, LSC for AP Spine = 0.022 g/cm2, LSC for Total Hip = 0.027 g/cm2 # Denotes dissimilar scan types or analysis methods Clinical Information Provided by Patient:
== END 2023-03-09 12:41 | disposition home or self-care (01) ==
LOC: ANHIMG 12:42
PROVIDERS: PCP Internal Medicine; Visit Provider Internal Medicine
DX: M81.0 Age-related osteoporosis without current pathological fracture (principal); M85.88 Other specified disorders of bone density and structure, other site; M85.852 Other specified disorders of bone density and structure, left thigh; M85.851 Other specified disorders of bone density and structure, right thigh
CPT/HCPCS: 77080

== ENCOUNTER 2023-04-17 09:16 | Outpatient (CLI) | payer MEDICARE, SELFPAY ==
--- NOTE | ~2023-04-17 | XR_ITS ---
XR chest 2V 04/17/2023 10:15 Indication: Chest pain Procedure: 2 view chest Comparison: 07/18/2022 Findings: Heart size normal. No nodular densities left lower thorax. No focal pneumonia, pleural effu renay, edema or pneumothorax. No acute osseous abnormality. There is scoliosis. Impression: 1: New nodular densities left lower thorax. Recommend correlation with CT chest to exclude parenchyma l nodule. Reviewed, dictated and finalized at location L. EDURES RN Impression: 1: New nodular densities left lower thorax. Recommend correlation with CT chest to exclude parenchymal nodule.
== END 2023-04-17 09:17 | disposition home or self-care (01) ==
PROVIDERS: PCP Internal Medicine; Visit Provider Internal Medicine
DX: R07.1 Chest pain on breathing (principal)
CPT/HCPCS: 71046

== ENCOUNTER 2023-04-20 06:38 | Outpatient (CLI) | payer MEDICARE, SELFPAY ==
--- NOTE | ~2023-04-20 | CT_ITS ---
Clinical Indication: Pulmonary nodule CT Scan of the Chest with Contrast: Technique: Contiguous sections were acquired throughout the chest after intravenous administration of 75 cc of Omnipaque 350. Dose reduction technique was used on this scan by utilizing automated exposu re control and iterative reconstruction technique. The dose-length product (DLP) was 117.56 mGy-cm. COMPARISON: 11/01/2022 Findings: There is no evidence of any significant mediastinal, hilar or axillary lymphadenopathy. There is no f illing defect in the pulmonary arterial tree to suggest pulmonary embolus. There is no evidence of ao rtic dissection or aneurysm. There is no evidence of pleural or pericardial effusion. 3 mm right middle lobe pulmonary nodule is unchanged. Images through the upper abdomen reveal no abnormalities. Impression: 3 mm right middle lobe pulmonary nodule, unchanged, most likely benign. Reviewed, dictated and finalized at location . 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
[2023-04-20 07:02] LABS: Estimated Glomerular Filt Rate > 60
== END 2023-04-20 06:39 | disposition home or self-care (01) ==
PROVIDERS: PCP Internal Medicine; Visit Provider Internal Medicine
DX: R91.1 Solitary pulmonary nodule (principal)
CPT/HCPCS: 71260; Q9967

== ENCOUNTER 2023-06-11 08:43 | Outpatient (CLI) | payer MEDICARE, SELFPAY ==
--- NOTE | ~2023-06-11 | MM_ITS ---
EXAMINATION: MM screening marty BI w bebeto HISTORY: Screening TECHNIQUE: Craniocaudal and mediolateral oblique 3-D tomosynthesis images were obtained and synthetic 2-D images were generated. CAD analysis was submitted and interpreted. COMPARISON: Comparison to multiple prior studies sequentially, with oldest reviewed study dated 04/24. BREAST PARENCHYMAL COMPOSITION: Not dense: There are scattered areas of fibroglandular density. FINDINGS: There is no evidence of suspicious mass, calcification, or architectural distortion to sugg est malignancy in either breast. There has been no suspicious interval change. IMPRESSION: 1. No mammographic evidence of malignancy. 2. Recommend routine screening mammography in one year. BI-RADS Category 1: Negative Reviewed, dictated and finalized at location A.
== END 2023-06-11 08:44 | disposition home or self-care (01) ==
LOC: ANHIMG 08:49
PROVIDERS: PCP Internal Medicine; Visit Provider Obstetrics & Gynecology
DX: Z12.31 Encounter for screening mammogram for malignant neoplasm of breast (principal)
CPT/HCPCS: 77063; 77067

== ENCOUNTER 2024-04-21 09:13 | Outpatient (CLI) | payer MEDICARE, SELFPAY ==
--- NOTE | ~2024-04-21 | CT_ITS ---
CT Scan of the Chest without Contrast: Clinical Indication: Abnormal findings on diagnostic imaging Technique: Contiguous sections were acquired throughout the chest without intravenous contrast. Dose reduction technique was used on this scan by utilizing automated exposure control and iterative recon struction technique. The dose-length product (DLP) was 52.99 mGy-cm. COMPARISON: 04/20/2023 Findings: There is no evidence of any significant mediastinal, hilar or axillary lymphadenopathy. There are camila cified lymph nodes in the right hilum and subcarinal region. There is no evidence of pleural or pericardial effusion. Stable 3 mm right middle lobe pulmonary nodule (axial image 65). Stable linear scarring in the right middle lobe and lingula. Images through the upper abdomen reveal no abnormalities. Impression: Stable 3 mm right middle lobe pulmonary nodule. Reviewed, dictated and finalized at [facility]. ICE AIDE Impression: Stable 3 mm right middle lobe pulmonary nodule.
--- OUTSIDE RECORDS SUMMARY | 2024-04-21 09:43 | XMS_ITS | Encounter Summary ---
Author Organization [facility] Address [address] [place] [address] Care Team Providers Care Drama Teacher Name Role Phone Unavailable Primary Care Provider Unavailabl e Encounter Details Date Type Department Care Team (Late st Contact Info) Description 10/31/2023 Lab Requisition [facility] - DermPath Lab [address] [place] [address] Christy Moran MD [address] [address] Neoplasm of uncertain behavior of skin Social History Tobacco Use Types Packs/Day Years Used Date Smoking Tobacco: Never Assessed Sex and Gender Information Value Date Recorded Sex Assigned at Not on file Gender Identity Not on file Sexual Orientation Not on file documented as of this encounter Plan of Treatment Not on file documented as of this encounter Procedures Procedure Name Priority Date/Time Associated Diagnosis Comments DERMATOPATHOLOGY Routine 10/31/2023 12:0 0 AM CDT Neoplasm of uncertain behavior of skin documented in this encounter Results * DERMATOPATHOLOGY (10/31/2023 12:00 AM CDT) Case Report Dermatopathology Report ? Case: [id number] ? Authorizing Provider: ??Christy Moran MD ?Collected: ? 10/31/2023 12:00 AM ? Ordering Location: ? [facility] - ??Received: ?11/01/2023 12:29 PM ? DermPath Lab ? Pathologist: ? Margaret Andrews MD ? Specimen: ?Skin, nasal dorsum ? 4 12:28 PM CDT DERMATOPATHOLOGY LABORATORY Final Diagnosis Specimen A. SKIN, nasal dorsum: BASAL CELL CARCINOMA, INFILTRATIVE PATTERN (C44.311) 12:28 PM T DERMATOPATHOLOGY LABORATORY Clinical History BCC 4 12:28 PM CDT DERMATOPATHOLOGY LABORATORY Gross Description Specimen A: Received is one formalin filled container labeled with the patient's name and designated nasal dorsum. The specimen consists of a shave biopsy measuring 4x3x1 mm. Jar 0. 12:28 PM CDT DERMATOPATHOLOGY LABORATORY Microscopic Description Specimen A. SKIN, nasal dorsum: Within the dermis there are nodular aggregates of basaloid cells associated with fibromyxoid stroma and epithelial-stromal clefts. At the advancing margin of the neoplasm, there are smaller angulated nests that infiltrate the dermis. 12:28 PM T DERMATOPATHOLOGY LABORATORY Disclaimer An external and internal positive and negative controls are appropriate for the histochemical, immunohistochemical and immunofluorescence stain(s) in this case (if any), except where stated explicitly. The performance characteristics of the stain(s) cited in this report were developed and its performance characteristic determined by the Dermatopathology Laboratory at [facility], directed by Dr. Nery Arteaga. These tests need not be, and therefore are not, approved by the [place] Food and Drug Administration. The tests are used for clinical purposes. Billing Codes Specimen Charges Stain Charges 87858 1 4 12:28 PM CDT DERMATOPATHOLOGY LABORATORY Embedded Images 4 12:28 PM CDT DERMATOPATHOLOGY LABORATORY Pathology/Cytolog y TISSUE SPECIMEN FROM SKIN / Unknown 10/31/2023 11/01/2023 12:29 PM CDT Christy Moran MD LAB - PATHOLOGY/CYTO LOGY ORDERABLES DERMATOPATHOLOGY LABORATORY [facility] - Department of Dermatology [address], [address] [phone] documented in this encounter Visit Diagnoses Diagnosis Neoplasm of uncertain behavior of skin documented in this encounter
--- OUTSIDE RECORDS SUMMARY | 2024-04-21 09:43 | XMS_ITS | Clinical Summary ---
Author Organization [facility] Address [address] [place] [address] Care Team Providers Care Needle Punch Machine Operator Name Role Phone Unavailable Primary Care Provider Unavailabl e Source Comments [facility] [employer],non-owned Affiliates and Associated Physician Practices is amultiple site organization consisting of ambulatory clinics and hospital sitesin [place], [place], [place] and [place]. This disclosure is being madepursuant to the Care Everywhere program and may not contain all information available regarding this patient. Last updated 17.[facility] [employer] Social History Tobacco Use Types Packs/Day Years Used Date Smoking Tobacco: Never Assessed Sex and Gender Information Value Date Recorded Sex Assigned at Not on file Gender Identity Not on file Sexual Orientation Not on file Plan of Treatment Health Maintenance Due Date Last Done Comments BONE DENSITY TESTING 1955 COLOGUARD (AGES 45-75) - COL ON CA SCREENING 1955 COLON MONITORING 1955 COLONOSCOPY - COLON CA SCREENING 1955 CT COLONOGRAPHY - COLON CA SCREENING 1955 Colorectal Cancer Screening 1955 FIT - COLON CA SCREENING 1955 FLEX SIG - COLON CA SCREENING 1955 LIPID TESTING 1955 MAMMOGRAM 1955 MEDICARE AWV ? 12 MONTHS 1955 HEPATITIS C SCREENING 04/17/1973 DTAP/TDAP/TD VACCINES (1 - Tdap) 1974 PNEUMOCOCCAL VACCINE 50+ (1 of 1 - PCV) 2005 ZOSTER VACCINE (1 of 2) 2005 COVID-19 VACCINE ( - 2023-2 5 season) 2023 INFLUENZA VACCINE (#1) 2023 DEPRESSION SCREENING 03/26/2024 Respiratory Syncytial Virus (RSV) Vaccine Pt: or over 60 yrs (1 - 1-dose 75+ series) 2030 HEPATITIS B VACCINE Aged Out No longe r eligible based on patient's age to complete this topic HIB VACCINE Aged Out No longer eligi ble based on patient's age to complete this topic HPV VACCINE Aged Out No longer eligi ble based on patient's age to complete this topic MENINGOCOCCAL (Group B) VACCINE Aged Out No longer eligible based on patient's age to complete this topic MENINGOCOCCAL VACCINE Aged Out No roger laurie eligible based on patient's age to complete this topic
--- OUTSIDE RECORDS SUMMARY | 2024-04-21 09:43 | XMS_ITS | Clinical Summary ---
Author Organization [facility] Address [address] [place] [address]. 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 Gender Identity Not on file Sexual Orientation Not on file Plan of Treatment Health Maintenance Due Date Last Done Comments Colorectal Cancer Screening Colonoscopy (10 Years) 1955 Hepatitis C 1973 DTaP, Tdap and Td Vaccines (1 - Tdap) 1974 Mammogram Screening 1995 Annual Medicare Wellness Visit 2020 Dexa Scan (General) 2020 Pneumococcal Vaccine: 65+ Years (3 of 3 - PPSV23 or PCV20) 12/10/2022 12/10/2017, 12/07/2016 COVID-19 Vaccine ( season) 2023 01/25/2023, 09/18/2022, 01/26/2022, Additional history exists Influenza Adult (#1) 2023 11/27/2019, 12/24/2018, 12/10/2017, Additional history exists Zoster Vaccines Completed 07/07/2018, 03/28, 12/06/2012 RSV Immunization or 60+ Years Completed 02/01/2023 Meningococcal Vaccine Aged Out No roger laurie eligible based on patient's age to complete this topic RSV Immunizations Under 20 Months Aged Out No longer eligible based on patient's age to complete this topic Insurance [facility] INSURANCE MEDICARE Care Teams Bottle House Quality Control Technician Relationship Specialty Start Date End Date Osorio Billy MD [id number] [place] [address] PCP - General ORTHOPAEDIC SURGERY 02/20/23
--- OUTSIDE RECORDS SUMMARY | 2024-04-21 09:43 | XMS_ITS | Clinical Summary ---
Author Organization [facility] Address [address] [place] [address] Care Team Providers Care Supervisor Blood Donor Recruiters Name Role Phone Vahe Aguilera MD Primary Care Provider [phone] Alia Ramey MD Unavailable Allergies No known active allergies Medications aspirin 81 mg tablet Take 1 tablet (81 mg total) by mouth daily Active calcium acetate (PHOSLO) 667 mg tablet Take 2 tablets (1,334 mg total) by mouth 3 (three) times a day with meals Active atorvastatin (LIPITOR) 40 mg tablet Take 1 tablet (40 mg total) by mouth daily 1 Active cyanocobalamin, vitamin B-12, (VITAMIN B-12 ORAL) Take by mouth Active magnesium oxide 400 mg magnesium capsule Take by mouth daily Active escitalopram (LEXAPRO) 20 mg tablet Take 1 tablet (20 mg total) by mouth daily Active cholecalciferol (VITAMIN D-3) 1,000 unit capsule Take 1 capsule (1,000 Units total) by mouth daily 4 Active polyvinyl alcohol-povidon e (REFRESH CLASSIC) 1.4-0.6 % dropperetteIndi cations:Dry Eye Administer 1 drop into both eyes 3 (three) times a day as needed for dry eyes 4 Active acetaminophen (TYLENOL) 325 mg tablet Take 2 tablets (650 mg total) by mouth every 6 (six) hours as needed for pain 4 04/10/19 25 Discontin ued(Thera py completed ) apixaban (ELIQUIS) 2.5 mg tabletIndicatio ns:VTE Prophylaxis Following Ortho Surgery Take 1 tablet (2.5 mg total) by mouth 2 (two) times a day 84 tablet 4 04/10/19 25 Discontin ued(Thera py completed ) traZODone (DESYREL) 50 mg tablet TAKE 1 TO 3 TABLETS BY MOUTH EVERY DAY AT BEDTIME FOR INSOMNIA 4 04/10/19 25 Discontin ued(Thera py completed ) Active Problems Problem Noted Date Diagnosed Date Respiratory insufficiency 01/23/2024 Assessment & Plan (01/24/2024 10:09 AM CDT): - 01/22: patient continues to require 2 L O2 via NC - IS, pulmonary hygiene - Does not wear O2 at home - Continue pulmonary hygiene by encouraging incentive spirometer, sitting up in the chair at least 3 times daily, and ambulation as tolerated Blood loss anemia 01/22/2024 Assessment & Plan (01/24/2024 10:15 AM CDT): - 01/21 6.6 1 unit PRBC--> 8.0 - 01/22: Hgb 7.5 - 01/23: Hgb 7.5 - CBC was monitored, no active signs or symptoms of bleeding, hemodynamically unsupported at discharge Acute pain 01/21/2024 Assessment & Plan (01/23/2024 11:09 AM CDT): 01/20 Controlled with IV pain medications 01/22: d/c IV dilaudid, start tylenol 650 mg q6h scheduled; continue oxycodone 5 mg q4h PRN Encounter for medication review 01/21/2024 Assessment & Plan (01/21/2024 10:38 AM CDT): 01/20 Completed Other fracture of right femu r, initial encounter for closed fracture 01/20/2024 Assessment & Plan (01/24/2024 10:13 AM CDT): Ortho c/s - 01/19 S/p right femur closed reduction and intramedullary nailing with Orthopedics - WBAT RLE - PT/OT - STOP FOSAMAX, bone health referral at discharge - Bilateral lower extremity/multiple extremity injuries: Lovenox 40mg QHS while in the hospital, on discharge transition to Eliquis 2.5mg BID x 6 wks (01/23-03/06) Impending pathologic fracture 01/20/2024 Assessment & Plan (01/24/2024 12:42 PM CDT): #Impending L femur fracture - Needs repair - NPO p MN 01/20 for possible -01/20 s/p prophylactic IMN L atypical femoral shaft rxn -01/21 See R femur Fx - WBAT LLE - Suture removal 3 weeks post op for bilateral femurs on 02/12/24 by the facility as appointment was rescheduled for 6 weeks - PT/OT - Bilateral lower extremity/multiple extremity injuries: Lovenox 40mg QHS while in the hospital, on discharge transition to Eliquis 2.5mg BID x 6 wks (01/23-03/06) HLD (hyperlipidemia) 01/20/2024 Assessment & Plan (01/24/2024 10:14 AM CDT): - ASA held in the santosh-op setting- resume at discharge - Continue home atorvastatin Anxiety 01/20/2024 Assessment & Plan (01/20/2024 2:22 PM CDT): Cont lexapro Discharge planning issues 01/20/2024 Assessment & Plan (01/24/2024 10:21 AM CDT): 01/19 -01/20 Surgical mgmt 01/21 Medical Mgmt anticipate dc to IPR vs SNF fri vs sat, void trial 01/22: Hgb appropriate response to blood. Wean O2, continue PT/OT, monitor labs. 01/23 discharge Treatment plan completed 01/23 Low back pain, non-specific 05/09/2022 Spondylosis of lumbar region without myelopathy or radiculopathy 05/09/2022 Cervicalgia 07/09/2018 Encounters Date Type Department Care Team Description 04/14/2024 10:04 AM DELIVERY REPRESENTATIVE - 04/14/2024 11:59 PM DELIVERY REPRESENTATIVE Hospital Encounter [facility] at [address] [address] Alia Ramey MD Lumbar radiculopathy Discharge Disposition: Discharge to home or self care 04/10/2024 Telephone [facility] at [address] [address] Sanjana Welch, PIERRE pt call 04/10/2024 Telephone [facility] Echo at [address] [address] Maxine Johnston RN Pre Arrival 04/04/[address] [address] Tess Mota RN requests call back 03/28/[address] [address] Jesusita Martinez RN medication question 03/11/2024 2:10 PM DELIVERY REPRESENTATIVE Office Visit [facility] Orthopaedic Surgery [address] [place] [address] Advanced Medicine 6th [place] [address] [place] [address] Yosvany Bello MD Other fracture of right femur, initial encounter for closed fracture (HCC) (Primary Dx); Impending pathologic fracture 03/11/2024 1:40 PM DELIVERY REPRESENTATIVE - 03/11/2024 11:59 PM DELIVERY REPRESENTATIVE Hospital Encounter [facility] [address] [place] [id number] Yosvany Bello MD Other fracture of right femur, initial encounter for closed fracture (HCC); Impending pathologic fracture Discharge Disposition: Discharge to home or self care 03/11/[address] [address] Jojo Blanchard RN Call Back 02/13/2024 Telephone [facility] [address] [place] [address] Angel Luis Zuniga, PIERRE 02/12/2024 12:00 PM DELIVERY REPRESENTATIVE Office Visit [facility] Orthopaedic Surgery [address] [place] [address] 6th [place] [address] Yosvany Bello MD Other fracture of right femur, initial encounter for closed fracture (HCC) (Primary Dx) 01/21/2024 9:20 AM CDT - 01/21/2024 12:20 PM CDT Surgery [facility] Operating Room [address] [place] [address] Yosvany Bello MD INTRAMEDULLARY NAILING FEMUR - ANTEGRADE 01/21/2024 8:50 AM CDT Anesthesia Event [facility] Operating Room [address] [place] [id number] Paul Miller MD Ukeje, Chideraa Cynthia, MD 01/21/2024 Orders Only [facility] Orthopaedic Surgery [address] [place] [address] 6th [place] [address] Yosvany Bello MD Other fracture of right femur, initial encounter for closed fracture (HCC) (Primary Dx); Closed fracture of shaft of left femur, unspecified fracture morphology, initial encounter (HCC) 01/20/2024 7:30 AM CDT - 01/20/2024 10:20 AM CDT Surgery [facility] Operating Room [address] [place] [id number] Chito Garay MD INTRAMEDULLARY NAILING FEMUR - ANTEGRADE 01/20/2024 7:24 AM CDT Anesthesia Event [facility] Operating Room [address] [place] [phone] Fausto Hayden MD 01/20/2024 12:50 AM CDT - 01/24/2024 4:19 PM CDT Hospital Encounter [facility] [address] [place] [address] Christa Yen MD Sensing, Sravan Akhtar, DO Other fracture of right femur, initial encounter for closed fracture (HCC) (Primary Dx); Fall, initial encounter; Impending pathologic fracture [Z91.89] Discharge Disposition: Discharge to an IP Rehab facility from Last 3 Months Surgical History Surgery Date Site/Laterality Comments BIOPSY DEEP BONE 11/09/2017 N/A Medical History Medical History Date Comments Anxiety Arthritis Osteoarthritis Osteoporosis Fatigue Wears glasses Skin cancer Family History Medical History Relation Name Comments Arthritis Mother Cancer Mother Cancer Sister Relation Name Status Comments Mother Sister Social History Tobacco Use Types Packs/Day Years Used Date Smoking Tobacco: Never Smokeless Tobacco: Never Tobacco Cessation:Counseling Given: Not Answered AUDIT-C Answer Date Recorded Q1: How often do you have a drink containing alcohol? Never 01/21/2024 Q2: How many drinks containi ng alcohol do you have on a typical day when you are drinking? Patient does not drink Q3: How often do you have si x or more drinks on one occasion? Never 01/21/2024 PHQ-2 Answer Date Recorded PHQ-2 Total Score (If total score is 3 or more points, staff should administer the PHQ-9) 2 03/28/2022 Personal Safety Answer Date Recorded Have you ever been in or are you currently in a harmful physical or emotional relationship or is someone making you feel afraid or unsafe? Denies 01/21/2024 Comments No Sex and Gender Information Value Date Recorded Sex Assigned at Not on file Legal Sex Female 11:06 AM CDT Gender Identity Female 07/07/2020 12:11 PM CDT Sexual Orientation Not on file Obstetrics History Last Filed Vital Signs Vital Sign Reading Time Taken Comments Blood Pressure 127/78 04/14/2024 11:19 AM DELIVERY REPRESENTATIVE Pulse 69 04/14/2024 11:19 AM DELIVERY REPRESENTATIVE Temperature 36.6 ??C (97.8 ??F) 04/14/2024 1 0:11 AM DELIVERY REPRESENTATIVE Respiratory Rate 18 04/14/2024 11:1 9 AM DELIVERY REPRESENTATIVE Oxygen Saturation 99% 04/14/2024 11: 19 AM DELIVERY REPRESENTATIVE Inhaled Oxygen Concentration - - Weight 63.4 kg (139 lb 11.2 oz) 01/23/2024 5:06 PM CDT Height 157.5 cm (5' 2 ) 01/20/2024 5:48 AM CDT Body Mass Index 25.55 01/20/2024 5:48 AM CDT Plan of Treatment Health Maintenance Due Date Last Done Comments Breast Cancer Screening-Mammogram 1955 Colon Cancer Screening-Colonoscopy 1955 Hepatitis C Screening 1955 Osteoporosis Screening-Bone Density Scan 1955 DTaP/Tdap/Td Vaccine (1 - Tdap) 1966 Hepatitis B Screening 1973 Well Visit 65+ 2020 Pneumococcal vaccine 65+ (3 of 3 - PPSV23 or PCV20) 12/10/2022 12/10/2017, 12/07/2016 Depression Screening 03/28/2023 03/28/2022 Influenza Vaccine (#1) 2023 , 12/24/2018, 12/10/2017, Additional history exists Fall Risk Assessment 04/14/2025 04/14/2024, 01/24/2024, 01/16/2024, Additional history exists Zoster Vaccine Completed 07/07/2018, 03/28, 12/06/2012 Goals Goal Patient Goal Type Associated Problems Recent Progress Patient-Stated? Author [facility] Chronic Pain Care Plan Chronic Care Management On track(2024 10:13 AM DELIVERY REPRESENTATIVE) No Sanjana Welch, RN Note: Problem: Chronic Pain Goals: 1. Minimize further functional decline 2. Maximize quality of life 3. Control pain Strategies: - Activity/exercise program recommendation - Conservative stepwise pain medicine strategy with multi-disciplinary approach - Recommend healthy lifestyle strategies and compensatory methods as needed [facility] Fall Prevention Care Plan Chronic Care Management On track(2024 10:13 AM DELIVERY REPRESENTATIVE) No Jesusita Martinez, RN Note: Problem: Falls Goals: 1. Maintain strength and balance as able 2. Prevent falls and fractures 3. Maximize safety of living environment Strategies: - Educate on fall prevention and follow-up as needed - Recommend activity/exercise program - Refer to allied health as needed - Recommend healthy lifestyle strategies and compensatory methods as needed Medical Devices Implanted Type Area Guide Tour Device Identifier Shelf Expiration Date Model / Serial / Lot Synthes Nail 140d 400mm 11mm Intramedullary Femoral Greater Trochanter Right Titanium Niobium Aluminum Adult 8 Hole Cannulated Reconstruction Light Green 5/6.5mm Screw 04.033.170s - S0 - [id number] Implanted:Qty: 1 on 01/20/2024 by Chito Garay MD at [facility] Nail Right: Femur Synthes I 04.033.17 0S / 0 / [employer] Nail 10mm 400mm Fem Greater Trochanter Left T2 Alpha Im Strl 2331-1040s - [id number] Implanted:Qty: 1 on 01/21/2024 by Yosvany Bello MD at [facility] Nail Left: Femur [employer] 01/23/2033 [id number] S / / [id number] Synthes Screw Bone Locking Cannulated Hip Threaded 6.5x85mm Recon 04.046.685s - [id number] Implanted:Qty: 1 on 01/20/2024 by Chito Garay MD at [facility] Screw Right: Femur Synthes I 04.046.68 5S / / Synthes Screw Bone Locking Cannulated Femoral Proximal Full Thread Light Green 5.0x40mm Titanium 04.045.040 - [id number] Implanted:Qty: 2 on 01/20/2024 by Chito Garay MD at [facility] Screw Right: Femur Synthes 04.045.04 0 / / Synthes Screw Bone Locking Cannulated Femoral Proximal Full Thread Light Green 5.0x46mm Titanium 04.045.046 - [id number] Implanted:Qty: 1 on 01/20/2024 by Chito Garay MD at [facility] Screw Right: Femur Synthes I 04.045.04 6 / / [employer] 6.5mm 90mm Lag Cannulated Femur Screw Bone Titanium Sterile 189-6090s - [id number] Implanted:Qty: 1 on 01/21/2024 by Yosvany Bello MD at [facility] Screw Left: Femur [employer] [id number] 01/23/2025 3434-4110 S / / [id number] [employer] Screw Bone 5mm 35mm T2 Alpha Lock Strl 2360-5035s - [id number] Implanted:Qty: 1 on 01/21/2024 by Yosvany Bello MD at [facility] Screw Left: Femur [employer] [id number] 08/23/2033 2860-7657 S / / [id number] [employer] Screw Bone 5mm 45mm T2 Alpha Lock Strl 2360-5045s - [id number] Implanted:Qty: 1 on 01/21/2024 by Yosvany Bello MD at [facility] Screw Left: Femur [employer] [id number] 10/23/2032 4777-7793 S / / [id number] Explanted Type Area Guide Tour Device Identifier Shelf Expiration Date Model / Serial / Lot [employer] K-Wire Drill-Tip Recon 2351-3240s - [id number] Explanted:Qty: 1 on 01/21/2024 at [facility] Left: Femur [employer] [id number] 01/23/2031 1929-2893 S / / [id number] [employer] K-Wire Drill-Tip Recon 2351-3240s - [id number] Explanted:Qty: 1 on 01/21/2024 by Yosvany Bello MD at [facility] Left: Femur [employer] [id number] 01/23/2030 3302-6301 S / / [id number] Procedures Procedure Name Priority Date/Time Associated Diagnosis Comments PAIN MGMT IMAGING LUMBAR/CAUDAL EPIDURAL STEROID INJ Schedule Routine, Read Routine (OP Routine) 04/14/2024 11:16 AM DELIVERY REPRESENTATIVE Lumbar radiculopathy XR FEMUR LEFT 2 OR MORE VIEWS Schedule Routine, Read Routine (OP Routine) 03/11/2024 1:51 PM DELIVERY REPRESENTATIVE Other fracture of right femur, initial encounter for closed fracture (HCC) Impending pathologic fracture XR FEMUR RIGHT 2 OR MORE VIEWS Schedule Routine, Read Routine (OP Routine) 03/11/2024 1:51 PM DELIVERY REPRESENTATIVE Other fracture of right femur, initial encounter for closed fracture (HCC) Impending pathologic fracture PHOSPHORUS Routine 01/23/2024 7:20 PM CDT CBC WITHOUT DIFFERENTIAL Routine 01/23/2024 7:20 PM CDT EGFR Routine 01/22/2024 7:09 PM CDT PHOSPHORUS Routine 01/22/2024 7:09 PM CDT MAGNESIUM Routine 01/22/2024 7:09 PM CDT BASIC METABOLIC PANEL Routine 01/22/2024 7:09 PM CDT CBC WITHOUT DIFFERENTIAL Routine 01/22/2024 7:09 PM CDT HEMOGLOBIN AND HEMATOCRIT Timed 01/22/2024 11:14 AM CDT TRANSFUSE RED BLOOD CELLS Timed 01/22/2024 1:45 AM CDT PREPARE RBC Timed 01/21/2024 11:33 PM CDT EGFR Routine 01/21/2024 9:02 PM CDT PHOSPHORUS Routine 01/21/2024 9:02 PM CDT MAGNESIUM Routine 01/21/2024 9:02 PM CDT BASIC METABOLIC PANEL Routine 01/21/2024 9:02 PM CDT CBC WITHOUT DIFFERENTIAL Routine 01/21/2024 9:02 PM CDT XR FEMUR LEFT 2 OR MORE VIEWS IP Routine 01/21/2024 10:14 AM CDT FL FLUOROSCOPY < 1 HOUR IP Routine 01/21/2024 9:57 AM CDT ANESTHESIA INTUBATION Routine 01/21/2024 9:23 AM CDT INTRAMEDULLARY NAILING FEMUR - ANTEGRADE 01/21/2024 8:57 AM CDT Other fracture of right femur, initial encounter for closed fracture (HCC) LACTATE Timed 01/21/2024 6:05 AM CDT LACTATE Timed 01/20/2024 11:46 PM CDT EGFR Routine 01/20/2024 7:14 PM CDT PHOSPHORUS Routine 01/20/2024 7:14 PM CDT MAGNESIUM Routine 01/20/2024 7:14 PM CDT BASIC METABOLIC PANEL Routine 01/20/2024 7:14 PM CDT CBC WITHOUT DIFFERENTIAL Routine 01/20/2024 7:14 PM CDT XR FEMUR RIGHT 2 OR MORE VIEWS IP Routine 01/20/2024 9:33 AM CDT FL FLUOROSCOPY < 1 HOUR IP Routine 01/20/2024 9:21 AM CDT NV AN PROCEDURE PLACEHOLDER Routine 01/20/2024 8:07 AM CDT NV AN EMERGENT ENDOTRACHEAL AIRWAY Routine 01/20/2024 8:07 AM CDT INTRAMEDULLARY NAILING FEMUR - ANTEGRADE 01/20/2024 7:30 AM CDT Other fracture of right femur, initial encounter for closed fracture (HCC) ECG 12-LEAD Routine 01/20/2024 5:21 AM CDT XR FEMUR LEFT 2 OR MORE VIEWS ED Urgent/IP Urgent 01/20/2024 4:56 AM CDT XR KNEE RIGHT 1 OR 2 VIEWS ED Urgent/IP Urgent 01/20/2024 4:17 AM CDT XR HIP RIGHT 2 OR 3 VIEWS ED Urgent/IP Urgent 01/20/2024 4:03 AM CDT B CHECK SAMPLE STAT 01/20/2024 2:[address] HEAD AND CERVICAL SPINE WO CONTRAST ED 01/20/2024 2:01 AM CDT XR CHEST 1 VIEW ED 01/20/2024 1:52 AM CDT XR FEMUR RIGHT 2 OR MORE VIEWS ED 01/20/2024 1:51 AM CDT XR KNEE RIGHT 1 OR 2 VIEWS ED 01/20/2024 1:51 AM CDT XR PELVIS 1 OR 2 VIEWS ED 01/20/2024 1:51 AM CDT EGFR STAT 01/20/2024 1:17 AM CDT DIFFERENTIAL AUTO STAT 01/20/2024 1:1 7 AM CDT TYPE AND SCREEN STAT 01/20/2024 1:17 AM CDT PROTIME-INR STAT 01/20/2024 1:17 AM CDT APTT STAT 01/20/2024 1:17 AM CDT COMPREHENSIVE METABOLIC PANEL STAT 01/20/2024 1:17 AM CDT CBC WITH AUTO DIFFERENTIAL STAT 01/20/2024 1:17 AM CDT from Last 3 Months Results * Imaging Lumbar/Caudal Epidural Steroid INJ ([id number]) (04/14/2024 11:16 AM DELIVERY REPRESENTATIVE) Narrative [facility] - 04/14/2024 11:27 AM DELIVERY REPRESENTATIVE The images from this study are not interpreted by Radiology. ??Please refer to the physician's procedure / OR operative note. us Alia Ramey MD IMG PAIN MGMT PROCEDU RES Final Result [facility] * XR Femur Right 2 or More Views (03/11/2024 1:51 PM DELIVERY REPRESENTATIVE) Anatomical Region Laterality Modality Lower Extremities, Thigh, Femur Right Computed Radiography 03/11/2024 2:12 PM DELIVERY REPRESENTATIVE Impressions 03/11/2024 2:23 PM DELIVERY REPRESENTATIVE 1. ??Healing, nailed right femoral shaft atypical stress fracture. 2. Unchanged prophylactic nailing of an incomplete left femoral shaft atypical stress fracture. Dictated by: Kayla Walls MD, PhD The radiology attending physician has personally reviewed this study, and had reviewed and/or edited this written report and agrees with it. Electronically signed by: Jimmie Perez M.D. Narrative 03/11/2024 2:23 PM DELIVERY REPRESENTATIVE EXAMINATION: XR FEMUR RIGHT 2 OR MORE VIEWS, XR FEMUR LEFT 2 OR MORE VIEWS HISTORY: ??Bisphosphonate-associated bilateral femoral stress fractures FINDINGS: LEFT FEMUR: 4 views of the left femur were submitted for evaluation with comparison to 01/21/2024. Unchanged intramedullary nail with proximal and distal interlocking screws within the left femur. Stable focus of cortical thickening along the lateral femoral cortex, event sales representative of stress fracture. Resolution of subcutaneous gas. No acute fracture or dislocation within the left femur. RIGHT FEMUR: 4 views of the right femur were submitted for evaluation with comparison to 01/20/2024. Redemonstrated reduction and nailing of comminuted fracture of the midshaft femur, with interval formation of bridging callus. Interval resolution of soft tissue gas and swelling. No acute fracture or dislocation within the right femur. Procedure Note Jimmie Perez MD - 03/11/2024 EXAMINATION: XR FEMUR RIGHT 2 OR MORE VIEWS, XR FEMUR LEFT 2 OR MORE VIEWS HISTORY: Bisphosphonate-associated bilateral femoral stress fractures FINDINGS: LEFT FEMUR: 4 views of the left femur were submitted for evaluation with comparison to 01/21/2024. Unchanged intramedullary nail with proximal and distal interlocking screws within the left femur. Stable focus of cortical thickening along the lateral femoral cortex, event sales representative of stress fracture. Resolution of subcutaneous gas. No acute fracture or dislocation within the left femur. RIGHT FEMUR: 4 views of the right femur were submitted for evaluation with comparison to 01/20/2024. Redemonstrated reduction and nailing of comminuted fracture of the midshaft femur, with interval formation of bridging callus. Interval resolution of soft tissue gas and swelling. No acute fracture or dislocation within the right femur. IMPRESSION: 1. Healing, nailed right femoral shaft atypical stress fracture. 2. Unchanged prophylactic nailing of an incomplete left femoral shaft atypical stress fracture. Dictated by: Kayla Walls MD, PhD The radiology attending physician has personally reviewed this study, and had reviewed and/or edited this written report and agrees with it. Electronically signed by: Jimmie Perez M.D. us Yosvany Bello MD IMG XR PROCEDURES Final R esult * XR Femur Left 2 or More Views (03/11/2024 1:51 PM DELIVERY REPRESENTATIVE) Anatomical Region Laterality Modality Lower Extremities, Thigh, Femur Left Computed Radiography 03/11/2024 2:12 PM DELIVERY REPRESENTATIVE Impressions 03/11/2024 2:23 PM DELIVERY REPRESENTATIVE 1. ??Healing, nailed right femoral shaft atypical stress fracture. 2. Unchanged prophylactic nailing of an incomplete left femoral shaft atypical stress fracture. Dictated by: Kayla Walls MD, PhD The radiology attending physician has personally reviewed this study, and had reviewed and/or edited this written report and agrees with it. Electronically signed by: Jimmie Perez M.D. Narrative 03/11/2024 2:23 PM DELIVERY REPRESENTATIVE EXAMINATION: XR FEMUR RIGHT 2 OR MORE VIEWS, XR FEMUR LEFT 2 OR MORE VIEWS HISTORY: ??Bisphosphonate-associated bilateral femoral stress fractures FINDINGS: LEFT FEMUR: 4 views of the left femur were submitted for evaluation with comparison to 01/21/2024. Unchanged intramedullary nail with proximal and distal interlocking screws within the left femur. Stable focus of cortical thickening along the lateral femoral cortex, event sales representative of stress fracture. Resolution of subcutaneous gas. No acute fracture or dislocation within the left femur. RIGHT FEMUR: 4 views of the right femur were submitted for evaluation with comparison to 01/20/2024. Redemonstrated reduction and nailing of comminuted fracture of the midshaft femur, with interval formation of bridging callus. Interval resolution of soft tissue gas and swelling. No acute fracture or dislocation within the right femur. Procedure Note Jimmie Perez MD - 03/11/2024 EXAMINATION: XR FEMUR RIGHT 2 OR MORE VIEWS, XR FEMUR LEFT 2 OR MORE VIEWS HISTORY: Bisphosphonate-associated bilateral femoral stress fractures FINDINGS: LEFT FEMUR: 4 views of the left femur were submitted for evaluation with comparison to 01/21/2024. Unchanged intramedullary nail with proximal and distal interlocking screws within the left femur. Stable focus of cortical thickening along the lateral femoral cortex, event sales representative of stress fracture. Resolution of subcutaneous gas. No acute fracture or dislocation within the left femur. RIGHT FEMUR: 4 views of the right femur were submitted for evaluation with comparison to 01/20/2024. Redemonstrated reduction and nailing of comminuted fracture of the midshaft femur, with interval formation of bridging callus. Interval resolution of soft tissue gas and swelling. No acute fracture or dislocation within the right femur. IMPRESSION: 1. Healing, nailed right femoral shaft atypical stress fracture. 2. Unchanged prophylactic nailing of an incomplete left femoral shaft atypical stress fracture. Dictated by: Kayla Walls MD, PhD The radiology attending physician has personally reviewed this study, and had reviewed and/or edited this written report and agrees with it. Electronically signed by: Jimmie Perez M.D. Yosvany Bello MD IMG XR PROCEDURES Final R esult * (ABNORMAL) CBC without differential (01/23/2024 7:20 PM CDT) [facility] WBC 6.4 3.8 - 9.9 K/cumm Hgb 7.5(L) 11.9 - 15.5 g/dL [facility] Hct 23.6(L) 35.6 - 45.5 % [facility] Plt 93(L) 150 - 400 K/cumm [facility] [facility] MPV 12.6(H) 9.1 - 12.3 fL [facility] RBC 2.50(L) 3.90 - 5.20 M/cumm [facility] MCV 94.4 81.3 - 96.4 fL [facility] MCH 30.0 27.1 - 33.3 pg [facility] MCHC 31.8(L) 32.3 - 35.7 g/dL [facility] RDW CV 13.7 11.1 - 14.9 % [facility] RDW SD 46.6 35.7 - 48.1 fL [facility] NRBC abs 0.02(H) 0.00 - 0.01 K/cumm [facility] Blood 01/23/2024 7:20 PM CDT 01/23/2024 8:47 PM CDT Chito Garay MD LAB BLOOD ORDERABLES Final Result Performing Organization Address [facility] Co de Phone Number [facility] Department [place] [address] * Phosphorus (01/23/2024 7:20 PM CDT) [facility] Phosphorus, pl 2.3 2.3 - 4.5 mg/dL Blood 01/23/2024 7:20 PM CDT 01/23/2024 8:46 PM CDT Chito Garay MD LAB BLOOD ORDERABLES Final Result Performing Organization Address [facility] de Phone Number [facility] [place] [address] * eGFR (01/22/2024 7:09 PM CDT) [facility] eGFR >90 >=60 mL/min/1. 73 m2 Comment: Interpretive Data Reference Interval Normal ?>/= 90 mL/min/1.73m2 Mildly decreased* ? 60 - 89 mL/min/1.73m2 Mildly to moderately decreased ?45 - 59 mL/min/1.73m2 Moderately to severely decreased ??30 - 44 mL/min/1.73m2 Severely decreased ?15 - 29 mL/min/1.73m2 Kidney Failure ?< 15 ??mL/min/1.73m2 *Relative to young adult level Estimated glomerular filtration rate is determined by the 2020 CKD-EPI equation recommended by the National Kidney Foundation (A Unifying Approach to GFR Estimation: Recommendations of the NKF-ASK Task Force on Reassessing the Inclusion of Race in Diagnosing Kidney Disease, JASN 2020). The CKD-EPI equation should not be used for patients with unstable renal function and has not been validated in children and those over 70. Current interpretive data was last reviewed 2021. Blood 01/22/2024 7:09 PM CDT 01/22/2024 8:48 PM CDT us Chito Garay MD LAB BLOOD ORDERABLES Final Result [facility] Department [place] [address] * (ABNORMAL) CBC without differential (01/22/2024 7:09 PM CDT) WBC 7.8 3.8 - 9.9 K/cumm Hgb 7.5(L) 11.9 - 15.5 g/dL [facility] Hct 23.3(L) 35.6 - 45.5 % [facility] Plt 81(L) 150 - 400 K/cumm [facility] MPV 12.4(H) 9.1 - 12.3 fL [facility] RBC 2.51(L) 3.90 - 5.20 M/cumm [facility] MCV 92.8 81.3 - 96.4 fL [facility] MCH 29.9 27.1 - 33.3 pg [facility] MCHC 32.2(L) 32.3 - 35.7 g/dL [facility] RDW CV 14.3 11.1 - 14.9 % [facility] RDW SD 48.3(H) 35.7 - 48.1 fL [facility] NRBC abs 0.00 0.00 - 0.01 K/cumm [facility] Blood 01/22/2024 7:09 PM CDT 01/22/2024 8:48 PM CDT Chito Garay MD LAB BLOOD ORDERABLES Final Result Performing Organization Address City/[facility] Co de Phone Number [facility] [place] [address] * (ABNORMAL) Phosphorus (01/22/2024 7:09 PM CDT) Phosphorus, pl 1.6(L) 2.3 - 4.5 mg/dL Blood 01/22/2024 7:09 PM CDT 01/22/2024 8:48 PM CDT Chito Garay MD LAB BLOOD ORDERABLES Final Result Performing Organization Address City/[facility] Co de Phone Number [facility] [place] [address] * Magnesium (01/22/2024 7:09 PM CDT) Magnesium 2.2 1.4 - 2.5 mg/dL Blood 01/22/2024 7:09 PM CDT 01/22/2024 8:48 PM CDT Result [facility] Chito Garay MD LAB BLOOD ORDERABLES Final Result Performing Organization Address City/[facility]/ZIP Co de Phone Number [facility] [place] [address] * (ABNORMAL) Basic metabolic panel (01/22/2024 7:09 PM CDT) Pathologist [facility] Sodium 140 135 - 145 mmol/L Potassium, pl 4.3 3.3 - 4.9 mmol/L [facility] Chloride 106 97 - 110 mmol/L [facility] CO2 32 22 - 32 mmol/L [facility] Anion gap 2 2 - 15 mmol/L [facility] BUN 19 6 - 25 mg/dL [facility] Creatinine 0.70 0.60 - 1.10 mg/dL [facility] Glucose 150 70 - 199 mg/dL [facility] Comment: Interpretive Data Fasting glucose >/= 126 mg/dl is diagnostic for diabetes. ?? Fasting is defined as no caloric intake for at least 8 hours. Fasting glucose between 100 mg/dl to 125 mg/dl is diagnostic of prediabetes. In a patient with classic symptoms of hyperglycemia or hyperglycemic crisis, a random glucose >/= 200 mg/dl is diagnostic for diabetes. In the absence of unequivocal hyperglycemia, results should be confirmed by repeat testing. The classification and Diagnosis of Diabetes Diabetes Care 2021; 46: S19-S40. Current interpretive data was last revised 2022. Calcium 7.9(L) 8.5 - 10.3 mg/dL [facility] Blood 01/22/2024 7:09 PM CDT 01/22/2024 8:48 PM CDT Chito Garay MD LAB BLOOD ORDERABLES Final Result [facility] Department [place] [address] * (ABNORMAL) Hemoglobin and hematocrit (01/22/2024 11:14 AM CDT) Pathologist [facility] Hgb 8.0(L) 11.9 - 15.5 g/dL Hct 24.0(L) 35.6 - 45.5 % [facility] Blood 01/22/2024 11:1 4 AM CDT 01/22/2024 11:35 AM CDT Result [facility] [employer] DO LAB BLOOD ORDERABLES Final Result Performing Organization Address [facility] de Phone Number [facility] [place] [address] * Transfuse RBC (01/22/2024 4:58 AM CDT) Blood Result [facility] DO BLOOD TRANSFUSION ORD ERABLES Final Result Performing Organization Address [facility] [place] [address] * Prepare RBC: 1 Units (01/21/2024 11:33 PM CDT) [facility] Product code [id number] Unit Number [id number] [facility] Product Blood Type OPOS [facility] Dispense Status PRESUMED TRANSFUSED [facility] Blood 01/21/2024 11:3 3 PM CDT 01/21/2024 11:34 PM CDT Narrative [facility] - 01/22/2024 8:00 AM CDT Are special requirements needed? (All products are leukoreduced and CMV- safe)- >No Date required:-[id number] LRRBC # of [id number] Reasons:-Hgb <7 g/dL} [facility] [employer] DO BLOOD BANK PRODUCT OR DERABLES Final Result Performing Organization Address [facility] de Phone Number [facility] [place] [address] * eGFR (01/21/2024 9:02 PM CDT) [facility] eGFR 83 >=60 mL/min/1. 73 m2 Comment: Interpretive Data Reference Interval Normal ?>/= 90 mL/min/1.73m2 Mildly decreased* ? 60 - 89 mL/min/1.73m2 Mildly to moderately decreased ?45 - 59 mL/min/1.73m2 Moderately to severely decreased ??30 - 44 mL/min/1.73m2 Severely decreased ?15 - 29 mL/min/1.73m2 Kidney Failure ?< 15 ??mL/min/1.73m2 *Relative to young adult level Estimated glomerular filtration rate is determined by the 2020 CKD-EPI equation recommended by the National Kidney Foundation (A Unifying Approach to GFR Estimation: Recommendations of the NKF-ASK Task Force on Reassessing the Inclusion of Race in Diagnosing Kidney Disease, JASN 2020). The CKD-EPI equation should not be used for patients with unstable renal function and has not been validated in children and those over 70. Current interpretive data was last reviewed 2021. Blood 01/21/2024 9:02 PM CDT 01/21/2024 9:53 PM CDT Sravan Sewell DO LAB BLOOD ORDERABLES Final Result [facility] Department [place] [address] * (ABNORMAL) CBC without differential (01/21/2024 9:02 PM CDT) [facility] WBC 8.3 3.8 - 9.9 K/cumm Hgb 6.4(C) 11.9 - 15.5 g/dL [facility] Comment:Critical result call ed to and read back by ROGER RAGSDALE RN on 01 21 2024 at 2212 to Tess Young. Hct 19.9(L) 35.6 - 45.5 % [facility] Plt 80(L) 150 - 400 K/cumm [facility] MPV 12.1 9.1 - 12.3 fL [facility] RBC 2.09(L) 3.90 - 5.20 M/cumm [facility] MCV 95.2 81.3 - 96.4 fL [facility] MCH 30.6 27.1 - 33.3 pg [facility] MCHC 32.2(L) 32.3 - 35.7 g/dL [facility] RDW CV 13.4 11.1 - 14.9 % [facility] RDW SD 47.0 35.7 - 48.1 fL [facility] NRBC abs 0.00 0.00 - 0.01 K/cumm [facility] Blood 01/21/2024 9:02 PM CDT 01/21/2024 9:53 PM CDT Chito Garay MD LAB BLOOD ORDERABLES Final Result Performing Organization Address [facility] de Phone Number [facility] Department [place] [address] * (ABNORMAL) Phosphorus (01/21/2024 9:02 PM CDT) Phosphorus, pl 2.0(L) 2.3 - 4.5 mg/dL Blood 01/21/2024 9:02 PM CDT 01/21/2024 9:53 PM CDT Chito Garay MD LAB BLOOD ORDERABLES Final Result Performing Organization Address City/[facility] de Phone Number [facility] Department [place] [address] * Magnesium (01/21/2024 9:02 PM CDT) Magnesium 1.8 1.4 - 2.5 mg/dL Blood 01/21/2024 9:02 PM CDT 01/21/2024 9:53 PM CDT Chito Garay MD LAB BLOOD ORDERABLES Final Result Performing Organization Address City/[facility] de Phone Number [facility] Department [place] [address] * (ABNORMAL) Basic metabolic panel (01/21/2024 9:02 PM CDT) Sodium 143 135 - 145 mmol/L Potassium, pl 4.6 3.3 - 4.9 mmol/L [facility] Chloride 109 97 - 110 mmol/L [facility] CO2 30 22 - 32 mmol/L [facility] Anion gap 4 2 - 15 mmol/L [facility] BUN 19 6 - 25 mg/dL [facility] Creatinine 0.78 0.60 - 1.10 mg/dL [facility] Glucose 131 70 - 199 mg/dL [facility] Comment: Interpretive Data Fasting glucose >/= 126 mg/dl is diagnostic for diabetes. ?? Fasting is defined as no caloric intake for at least 8 hours. Fasting glucose between 100 mg/dl to 125 mg/dl is diagnostic of prediabetes. In a patient with classic symptoms of hyperglycemia or hyperglycemic crisis, a random glucose >/= 200 mg/dl is diagnostic for diabetes. In the absence of unequivocal hyperglycemia, results should be confirmed by repeat testing. The classification and Diagnosis of Diabetes Diabetes Care 2021; 46: S19-S40. Current interpretive data was last revised 2022. Calcium 8.1(L) 8.5 - 10.3 mg/dL [facility] Blood 01/21/2024 9:02 PM CDT 01/21/2024 9:53 PM CDT us Chito Garay MD LAB BLOOD ORDERABLES Final Result [facility] Department [place] [address] * XR Femur Left 2 or More Views (01/21/2024 10:14 AM CDT) Anatomical Region Laterality Modality Lower Extremities, Thigh, Femur Left Computed Radiography 01/21/2024 10:5 8 AM CDT Impressions 01/21/2024 11:57 AM CDT 1. ??Postoperative changes of medullary nail placement for fixation of redemonstrated femoral stress fracture. Dictated by: Sarita Zambrano M.D. The radiology attending physician has personally reviewed this study, and had reviewed and/or edited this written report and agrees with it. Electronically signed by: Osorio Yi D.O. Narrative 01/21/2024 11:57 AM CDT EXAMINATION: XR FEMUR LEFT 2 OR MORE VIEWS HISTORY: ??Intramedullary nail, concern for stress fracture. FINDINGS: 4 radiographs of the left femur are submitted for interpretation. Comparison is made to left femur radiographs dated 01/20/2024. There has been interval placement of a intramedullary nail with 1 proximal and one distal interlocking screw. ??Again noted is a small focus of cortical thickening of the lateral femoral cortex, compatible with stress fracture. There is a small area of mineralization along the lateral cortex of the distal femur, likely related to postoperative changes. ??Osseous structures are in normal alignment. ??There is subcutaneous gas, compatible with recent surgery. Procedure Note Osorio Yi, DO - 01/21/2024 EXAMINATION: XR FEMUR LEFT 2 OR MORE VIEWS HISTORY: Intramedullary nail, concern for stress fracture. FINDINGS: 4 radiographs of the left femur are submitted for interpretation. Comparison is made to left femur radiographs dated 01/20/2024. There has been interval placement of a intramedullary nail with 1 proximal and one distal interlocking screw. Again noted is a small focus of cortical thickening of the lateral femoral cortex, compatible with stress fracture. There is a small area of mineralization along the lateral cortex of the distal femur, likely related to postoperative changes. Osseous structures are in normal alignment. There is subcutaneous gas, compatible with recent surgery. IMPRESSION: 1. Postoperative changes of medullary nail placement for fixation of redemonstrated femoral stress fracture. Dictated by: Sarita Zambrano M.D. The radiology attending physician has personally reviewed this study, and had reviewed and/or edited this written report and agrees with it. Electronically signed by: Osorio Yi D.O. us Yosvany Bello MD IMG XR PROCEDURES Final R esult * [place] Fluoroscopy < 1 Hour (01/21/2024 9:57 AM CDT) Narrative [facility] - 01/21/2024 9:58 AM CDT The images from this study are not interpreted by Radiology. ??Please refer to the physician's procedure / OR operative note. us Yosvany Bello MD IMG FLUOROSCOPY PROCEDURE S Final Result [facility] * Airway (01/21/2024 9:23 AM CDT) Narrative Caren Tee MD - 01/21/2024 9:23 AM CDT Caren Tee MD ? 01/21/2024 ??9:24 AM Airway Patient location: OR Urgency: elective Indications for airway management: anesthesia Difficult airway: no Staff: Placed by: Resident: Caren Tee MD Emergent airway documentation: Risks and benefits discussed: yes Consent obtained: yes Consent given by: patient Airway prep: Preoxygenated: yes Patient position: sniffing Mask difficulty assessment: 1 - vent by mask Spontaneous ventilation during airway: absent Sedation level during airway: GA Final airway details: Final airway type: endotracheal airway Tube type: ETT ETT size: 7.0 mm Cuffed: yes Technique used for successful ETT placement: video laryngoscopy Devices/Methods used in placement: exchange catheter and stylet Insertion site: oral Blade type: Denton Video blade type: Langston Blade size: 3 Cormack-Lehane (video): grade IIa - partial view of glottis Initial cuff pressure: 23 cm H2O ETT to teeth: 22 cm Placement verified by: auscultation and CO2 detection Airway secured with: silk tape Number of attempts: 1 Planned trial extubation: yes us Paul Miller MD ANESTHESIA ORDERABLES Final Resu lt * Lactate (01/21/2024 6:05 AM CDT) Lactate 1.4 0.7 - 2.0 mmol/L Blood 01/21/2024 6:05 AM CDT 01/21/2024 6:46 AM CDT Narrative [facility] - 01/21/2024 7:47 AM CDT To be drawn after 500cc bolus of LR is done infusing [facility] [employer] DO LAB BLOOD ORDERABLES Final Result Performing Organization Address [facility] de Phone Number [facility] [place] [address] * (ABNORMAL) Lactate (01/20/2024 11:46 PM CDT) Pathologist [facility] Lactate 2.5(H) 0.7 - 2.0 mmol/L Blood 01/20/2024 11:4 6 PM CDT 01/21/2024 12:09 AM CDT [facility] [employer] DO LAB BLOOD ORDERABLES Final Result Performing Organization Address [facility] de Phone Number [facility] Department [place] [address] * eGFR (01/20/2024 7:14 PM CDT) Pathologist [facility] eGFR 76 >=60 mL/min/1. 73 m2 Comment: Interpretive Data Reference Interval Normal ?>/= 90 mL/min/1.73m2 Mildly decreased* ? 60 - 89 mL/min/1.73m2 Mildly to moderately decreased ?45 - 59 mL/min/1.73m2 Moderately to severely decreased ??30 - 44 mL/min/1.73m2 Severely decreased ?15 - 29 mL/min/1.73m2 Kidney Failure ?< 15 ??mL/min/1.73m2 *Relative to young adult level Estimated glomerular filtration rate is determined by the 2020 CKD-EPI equation recommended by the National Kidney Foundation (A Unifying Approach to GFR Estimation: Recommendations of the NKF-ASK Task Force on Reassessing the Inclusion of Race in Diagnosing Kidney Disease, JASN 2020). The CKD-EPI equation should not be used for patients with unstable renal function and has not been validated in children and those over 70. Current interpretive data was last reviewed 2021. Blood 01/20/2024 7:14 PM CDT 01/20/2024 9:20 PM CDT us Sravan Sewell DO LAB BLOOD ORDERABLES Final Result [facility] Department [place] [address] * (ABNORMAL) CBC without differential (01/20/2024 7:14 PM CDT) WBC 9.9 3.8 - 9.9 K/cumm Hgb 8.3(L) 11.9 - 15.5 g/dL [facility] Hct 25.9(L) 35.6 - 45.5 % [facility] Plt 110(L) 150 - 400 K/cumm [facility] MPV 12.7(H) 9.1 - 12.3 fL [facility] RBC 2.71(L) 3.90 - 5.20 M/cumm [facility] MCV 95.6 81.3 - 96.4 fL [facility] MCH 30.6 27.1 - 33.3 pg [facility] MCHC 32.0(L) 32.3 - 35.7 g/dL [facility] RDW CV 13.2 11.1 - 14.9 % [facility] RDW SD 45.3 35.7 - 48.1 fL [facility] NRBC abs 0.00 0.00 - 0.01 K/cumm [facility] Blood 01/20/2024 7:14 PM CDT 01/20/2024 9:25 PM CDT Chito Garay MD LAB BLOOD ORDERABLES Final Result Performing Organization Address City/[facility] Co de Phone Number [facility] [place] [address] * Phosphorus (01/20/2024 7:14 PM CDT) [facility] Phosphorus, pl 3.7 2.3 - 4.5 mg/dL Blood 01/20/2024 7:14 PM CDT 01/20/2024 9:20 PM CDT Chito Garay MD LAB BLOOD ORDERABLES Final Result Performing Organization Address [facility] Co de Phone Number [facility] [place] [address] * Magnesium (01/20/2024 7:14 PM CDT) [facility] Magnesium 1.8 1.4 - 2.5 mg/dL Blood 01/20/2024 7:14 PM CDT 01/20/2024 9:20 PM CDT Chito Garay MD LAB BLOOD ORDERABLES Final Result Performing Organization Address [facility] Co de Phone Number [facility] [place] [address] * Basic metabolic panel (01/20/2024 7:14 PM CDT) [facility] Sodium 142 135 - 145 mmol/L Potassium, pl 4.3 3.3 - 4.9 mmol/L [facility] Chloride 107 97 - 110 mmol/L [facility] CO2 30 22 - 32 mmol/L [facility] Anion gap 5 2 - 15 mmol/L [facility] BUN 23 6 - 25 mg/dL [facility] Creatinine 0.84 0.60 - 1.10 mg/dL [facility] Glucose 154 70 - 199 mg/dL [facility] Comment: Interpretive Data Fasting glucose >/= 126 mg/dl is diagnostic for diabetes. ?? Fasting is defined as no caloric intake for at least 8 hours. Fasting glucose between 100 mg/dl to 125 mg/dl is diagnostic of prediabetes. In a patient with classic symptoms of hyperglycemia or hyperglycemic crisis, a random glucose >/= 200 mg/dl is diagnostic for diabetes. In the absence of unequivocal hyperglycemia, results should be confirmed by repeat testing. The classification and Diagnosis of Diabetes Diabetes Care 2021; 46: S19-S40. Current interpretive data was last revised 2022. Calcium 8.7 8.5 - 10.3 mg/dL [facility] Blood 01/20/2024 7:14 PM CDT 01/20/2024 9:20 PM CDT Chito Garay MD LAB BLOOD ORDERABLES Final Result [facility] Department [place] [address] * XR Femur Right 2 or More Views (01/20/2024 9:33 AM CDT) Anatomical Region Laterality Modality Lower Extremities, Thigh, Femur Right Computed Radiography 01/20/2024 10:1 7 AM CDT Impressions 01/20/2024 10:17 AM CDT 1. ??Interval reduction and nailing of the comminuted right femoral midshaft fracture Electronically signed by: Shawn Mead MD, PHD Narrative 01/20/2024 10:17 AM CDT EXAMINATION: Right femur 2+ views HISTORY: ??Right femoral midshaft fracture FINDINGS: 4 radiographs of the right femur compared to prior radiographs from earlier the same day and demonstrate interval reduction and nailing of the comminuted, partially segmental and transverse fracture of the mid shaft of the right femur. ??Soft tissue gas and swelling are noted. ??The right hip joint spaces appear normal. Procedure Note Shawn Mead MD PhD - 01/20/2024 EXAMINATION: Right femur 2+ views HISTORY: Right femoral midshaft fracture FINDINGS: 4 radiographs of the right femur compared to prior radiographs from earlier the same day and demonstrate interval reduction and nailing of the comminuted, partially segmental and transverse fracture of the mid shaft of the right femur. Soft tissue gas and swelling are noted. The right hip joint spaces appear normal. IMPRESSION: 1. Interval reduction and nailing of the comminuted right femoral midshaft fracture Electronically signed by: Shawn Mead MD, PHD Chito Garay MD IMG XR PROCEDURES Fin al Result * [place] Fluoroscopy < 1 Hour (01/20/2024 9:21 AM CDT) Narrative [facility] - 01/20/2024 9:21 AM CDT The images from this study are not interpreted by Radiology. ??Please refer to the physician's procedure / OR operative note. Chito Garay MD IMG FLUOROSCOPY PROCE DURES Final Result Performing Organization Address City/State/[facility] Co de Phone Number [email or web address] * [place] AN EMERGENT ENDOTRACHEAL AIRWAY, [place] AN PROCEDURE PLACEHOLDER (01/20/2024 8:07 AM CDT) Narrative Allan Sorensen CRNA - 01/20/2024 8:07 AM CDT Allan Sorensen CRNA ? 01/20/2024 ??8:07 AM Airway Patient location: OR Urgency: emergent Indications for airway management: anesthesia Difficult airway: no Staff: Placed by: BIOMEDICAL ELECTRONICS TECHNICIAN: Allan Sorensen CRNA Emergent airway documentation: Patient identity confirmed by: verbally with patient and arm band Risks and benefits discussed: yes Consent obtained: yes Consent given by: patient Airway prep: Preoxygenated: yes Patient position: sniffing Mask difficulty assessment: 1 - vent by mask Spontaneous ventilation during airway: present Sedation level during airway: GA Final airway details: Final airway type: endotracheal airway Tube type: ETT ETT size: 7.0 mm Cuffed: yes Technique used for successful ETT placement: video laryngoscopy Devices/Methods used in placement: intubating stylet Insertion site: oral Blade type: [place] Video blade type: Langston Blade size: 3 Cormack-Lehane (video): grade I - full view of glottis Initial cuff pressure: 20 cm H2O Cuff volume: 6 mL Cuff inflated with: air ETT to teeth: 21 cm Placement verified by: auscultation Airway secured with: silk tape Number of attempts: 1 Ventilation between attempts: BVM us Fausto Hayden MD ANESTHESIA ORDERABLES Final Result * ECG 12-LEAD (01/20/2024 5:21 AM CDT) Narrative [facility] - 01/20/2024 5:21 AM CDT Christa Yen MD ? 01/20/2024 ??5:22 AM ECG 12 lead Date/Time: 01/20/2024 5:21 AM Performed by: Christa Yen MD Authorized by: Raissa Posey MD ?? Rate: ??ECG rate: ??78 ??ECG rate assessment: normal ?? Rhythm: ??Rhythm: sinus rhythm ?? Ectopy: ??Ectopy: none ?? QRS: ??QRS intervals: ??Normal Conduction: ??Conduction: normal ?? ST segments: ??ST segments: ??Normal T waves: ??T waves: flattening ?Flattening: ??AVL Previous ECG: ??Previous ECG: ??Unavailable Interpretation: ??Interpretation: normal ?? Recommended Follow-up: ??Recommended follow up: further workup in the ED ?? Procedure Note Christa Yen MD - 01/20/2024 5:21 AM CDT Procedure ECG 12 lead Date/Time: 01/20/2024 5:21 AM Performed by: Christa Yen MD Authorized by: Raissa Posey MD Rate: ECG rate: 78 ECG rate assessment: normal Rhythm: Rhythm: sinus rhythm Ectopy: Ectopy: none QRS: QRS intervals: Normal Conduction: Conduction: normal ST segments: ST segments: Normal T waves: T waves: flattening Flattening: AVL Previous ECG: Previous ECG: Unavailable Interpretation: Interpretation: normal Recommended Follow-up: Recommended follow up: further workup in the ED Christa Yen MD 01/20/24 0522 us Raissa Posey MD ECG ORDERABLES Final Result [facility] * XR Femur Left 2 or More Views (01/20/2024 4:56 AM CDT) Anatomical Region Laterality Modality Lower Extremities, Thigh, Femur Left Computed Radiography 01/20/2024 5:14 AM CDT Impressions 01/20/2024 7:37 AM CDT No available comparison. Focal cortical thickening along the lateral surface of the left femoral mid diaphysis favored to represent a stress fracture in this patient on alendronate. ??No left hip dislocation. Dictated by: Johnathan Colvin MD The radiology attending physician has personally reviewed this study, and had reviewed and/or edited this written report and agrees with it. Electronically signed by: Osorio Dockery M.D. Narrative 01/20/2024 7:37 AM CDT EXAMINATION: XR FEMUR LEFT 2 OR MORE VIEWS HISTORY: Osteoporosis on alendronate with a right femoral fracture after a fall. ??Evaluation of the left femur. Procedure Note Osorio Dockery MD - 01/20/2024 EXAMINATION: XR FEMUR LEFT 2 OR MORE VIEWS HISTORY: Osteoporosis on alendronate with a right femoral fracture after a fall. Evaluation of the left femur. IMPRESSION: No available comparison. Focal cortical thickening along the lateral surface of the left femoral mid diaphysis favored to represent a stress fracture in this patient on alendronate. No left hip dislocation. Dictated by: Johnathan Colvin MD The radiology attending physician has personally reviewed this study, and had reviewed and/or edited this written report and agrees with it. Electronically signed by: Osorio Dockery M.D. us Sravan Sewell DO IMG XR PROCEDURES Fin al Result * XR Knee Right 1 or 2 Views (01/20/2024 4:17 AM CDT) Anatomical Region Laterality Modality Lower Extremities, Knee Right Computed Radiography 01/20/2024 4:25 AM CDT Impressions 01/20/2024 7:37 AM CDT A traction pin has been placed through the distal right femoral diaphysis. ??The right femoral diaphyseal fracture is better evaluated on dedicated right femur radiographs. ??No dislocation or acute fracture of the right knee. ??Joint spaces are preserved. Dictated by: Johnathan Colvin MD The radiology attending physician has personally reviewed this study, and had reviewed and/or edited this written report and agrees with it. Electronically signed by: Osorio Dockery M.D. Narrative 01/20/2024 7:37 AM CDT EXAMINATION: XR KNEE RIGHT 1 OR 2 VIEWS HISTORY: Right femur fracture after fall. Procedure Note Osorio Dockery MD - 01/20/2024 EXAMINATION: XR KNEE RIGHT 1 OR 2 VIEWS HISTORY: Right femur fracture after fall. IMPRESSION: A traction pin has been placed through the distal right femoral diaphysis. The right femoral diaphyseal fracture is better evaluated on dedicated right femur radiographs. No dislocation or acute fracture of the right knee. Joint spaces are preserved. Dictated by: Johnathan Colvin MD The radiology attending physician has personally reviewed this study, and had reviewed and/or edited this written report and agrees with it. Electronically signed by: Osorio Dockery M.D. Sravan Sewell DO IMG XR PROCEDURES Fin al Result * XR Hip Right 2 or 3 Views (01/20/2024 4:03 AM CDT) Anatomical Region Laterality Modality Lower Extremities, Hip, Pelvis Right C omputed Radiography 01/20/2024 4:08 AM CDT Impressions 01/20/2024 7:37 AM CDT Acute right femoral diaphyseal transverse fracture in improved alignment, with mild residual angulation and displacement of the distal fragment. ??No other fracture identified. ??No dislocation. Dictated by: Johnathan Colvin MD The radiology attending physician has personally reviewed this study, and had reviewed and/or edited this written report and agrees with it. Electronically signed by: Osorio Dockery M.D. Narrative 01/20/2024 7:37 AM CDT EXAMINATION: XR HIP RIGHT 2 OR 3 VIEWS HISTORY: Right femoral fracture after fall. Procedure Note Osorio Dockery MD - 01/20/2024 EXAMINATION: XR HIP RIGHT 2 OR 3 VIEWS HISTORY: Right femoral fracture after fall. IMPRESSION: Acute right femoral diaphyseal transverse fracture in improved alignment, with mild residual angulation and displacement of the distal fragment. No other fracture identified. No dislocation. Dictated by: Johnathan Colvin MD The radiology attending physician has personally reviewed this study, and had reviewed and/or edited this written report and agrees with it. Electronically signed by: Osorio Dockery M.D. Christa Yen MD IMG XR PROCEDURES Fi nal Result * Check Sample (01/20/2024 2:06 AM CDT) ABO Rh O Positive [facility] OTHER 01/20/2024 2:06 AM CDT 01/20/2024 2:25 AM CDT Christa Yen MD LAB BLOOD ORDERABLES Final Result [facility] Department [place] [address] [facility] * CT Head and Cervical Spine WO Contrast (01/20/2024 2:01 AM CDT) Anatomical Region Laterality Modality Head and Neck N/A Computed Tomogra phy 01/20/2024 2:39 AM CDT Impressions 01/20/2024 9:15 AM CDT 1. No acute intracranial hemorrhage or calvarial fracture. 2. No evidence of acute fracture in the cervical spine. 3. 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 Dictated by: Eloy Zhang MD The radiology attending physician has personally reviewed this study, and had reviewed and/or edited this written report and agrees with it. Electronically signed by: Antonio Cowan M.D. Narrative 01/20/2024 9:15 AM CDT EXAMINATION: 1. CT head without contrast 2. CT of the cervical spine without contrast HISTORY: Fall TECHNIQUE: CT of the head was performed with images acquired from skull base to vertex without intravenous contrast. CT of the cervical spine was performed according to the standard protocol without intravenous contrast. COMPARISON: MRI cervical spine 07/14/2020 FINDINGS: HEAD: There is no acute intracranial hemorrhage. Ventricles are of normal size and morphology. No mass effect or midline shift is present. The baron-white matter differentiation is normal. The visualized portions of the orbits are normal. The visualized portions of the mastoids are normal. ??Frontal sinuses are underpneumatized. ??Otherwise, the visualized portions of the paranasal sinuses are normal. No fractures are identified. 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 The alignment of the cervical spine is normal. There is no acute fracture. Vertebral bodies are normal in height without compression fractures. Intervertebral disk heights are normal. The craniocervical junction is normal. Limited views of the skull base appear normal. The sphenoid sinus is well aerated. No soft tissue abnormality is identified. The disks are normal in configuration. There is no facet arthropathy. There is no uncovertebral joint disease. There is no neuroforaminal stenosis. There is no spinal canal stenosis. Procedure Note Antonio Cowan MD - 01/20/2024 EXAMINATION: 1. CT head without contrast 2. CT of the cervical spine without contrast HISTORY: Fall TECHNIQUE: CT of the head was performed with images acquired from skull base to vertex without intravenous contrast. CT of the cervical spine was performed according to the standard protocol without intravenous contrast. COMPARISON: MRI cervical spine 07/14/2020 FINDINGS: HEAD: There is no acute intracranial hemorrhage. Ventricles are of normal size and morphology. No mass effect or midline shift is present. The baron-white matter differentiation is normal. The visualized portions of the orbits are normal. The visualized portions of the mastoids are normal. Frontal sinuses are underpneumatized. Otherwise, the visualized portions of the paranasal sinuses are normal. No fractures are identified. 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 The alignment of the cervical spine is normal. There is no acute fracture. Vertebral bodies are normal in height without compression fractures. Intervertebral disk heights are normal. The craniocervical junction is normal. Limited views of the skull base appear normal. The sphenoid sinus is well aerated. No soft tissue abnormality is identified. The disks are normal in configuration. There is no facet arthropathy. There is no uncovertebral joint disease. There is no neuroforaminal stenosis. There is no spinal canal stenosis. IMPRESSION: 1. No acute intracranial hemorrhage or calvarial fracture. 2. No evidence of acute fracture in the cervical spine. 3. 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 Dictated by: Eloy Zhang MD The radiology attending physician has personally reviewed this study, and had reviewed and/or edited this written report and agrees with it. Electronically signed by: Antonio Cowan M.D. Raissa Posey MD IMG CT PROCEDURES Clari l Result * XR Chest 1 Vw Portable (01/20/2024 1:52 AM CDT) Anatomical Region Laterality Modality Body, Chest N/A Computed Radiogr aphy 01/20/2024 2:09 AM CDT Impressions 01/20/2024 7:37 AM CDT No available comparison. Patient is slightly rotated to the left. ??Multiple external lines overlie the patient. ?? No confluent pulmonary consolidation. ??No pneumothorax. ??No pleural effusion. ??Normal heart size. ??Mediastinal contours are within normal limits given patient rotation. ??Atherosclerotic disease of the thoracic aorta. Dictated by: Jhonathan Colvin MD The radiology attending physician has personally reviewed this study, and had reviewed and/or edited this written report and agrees with it. Electronically signed by: Osorio Dockery M.D. Narrative 01/20/2024 7:37 AM CDT EXAMINATION: 1 view chest radiograph Procedure Note Osorio Dockery MD - 01/20/2024 EXAMINATION: 1 view chest radiograph IMPRESSION: No available comparison. Patient is slightly rotated to the left. Multiple external lines overlie the patient. No confluent pulmonary consolidation. No pneumothorax. No pleural effusion. Normal heart size. Mediastinal contours are within normal limits given patient rotation. Atherosclerotic disease of the thoracic aorta. Dictated by: Johnathan Colvin MD The radiology attending physician has personally reviewed this study, and had reviewed and/or edited this written report and agrees with it. Electronically signed by: Osorio Dockery M.D. us Raissa Posey MD IMG XR PROCEDURES Clari l Result * XR Femur Right 2 or More Views (01/20/2024 1:51 AM CDT) Anatomical Region Laterality Modality Lower Extremities, Thigh, Femur Right Computed Radiography 01/20/2024 2:08 AM CDT Impressions 01/20/2024 7:37 AM CDT 1. ??Acute right femoral diaphyseal fracture with mild distraction and minimal angulation of the distal component. This fracture is likely secondary to an underlying bisphosphonate-related stress fracture. 2. ??No acute osseous abnormality of the pelvis or right knee. Dictated by: Johnathan Colvin MD The radiology attending physician has personally reviewed this study, and had reviewed and/or edited this written report and agrees with it. Electronically signed by: Osorio Dockery M.D. Narrative 01/20/2024 7:37 AM CDT EXAMINATION: XR PELVIS 1 OR 2 VIEWS, XR FEMUR RIGHT 2 OR MORE VIEWS, XR KNEE RIGHT 1 OR 2 VIEWS HISTORY: Osteoporosis on alendronate, presenting after a ground-level fall with right leg pain. COMPARISON: None. FINDINGS: Pelvis: No acute fracture of the pelvis on this single view examination. ??No dislocation. ??Joint spaces are grossly preserved. Right femur: Acute right humeral diaphyseal fracture with 6 mm of distraction and minimal posterior angulation of the distal femur. There is lateral cortical thickening along the fracture margin. Right knee: No acute fracture of the right knee. ??No knee joint effusion. ??Normal alignment. ??Joint spaces are preserved. Procedure Note Osorio Dockery MD - 01/20/2024 EXAMINATION: XR PELVIS 1 OR 2 VIEWS, XR FEMUR RIGHT 2 OR MORE VIEWS, XR KNEE RIGHT 1 OR 2 VIEWS HISTORY: Osteoporosis on alendronate, presenting after a ground-level fall with right leg pain. COMPARISON: None. FINDINGS: Pelvis: No acute fracture of the pelvis on this single view examination. No dislocation. Joint spaces are grossly preserved. Right femur: Acute right humeral diaphyseal fracture with 6 mm of distraction and minimal posterior angulation of the distal femur. There is lateral cortical thickening along the fracture margin. Right knee: No acute fracture of the right knee. No knee joint effusion. Normal alignment. Joint spaces are preserved. IMPRESSION: 1. Acute right femoral diaphyseal fracture with mild distraction and minimal angulation of the distal component. This fracture is likely secondary to an underlying bisphosphonate-related stress fracture. 2. No acute osseous abnormality of the pelvis or right knee. Dictated by: Johnathan Colvin MD The radiology attending physician has personally reviewed this study, and had reviewed and/or edited this written report and agrees with it. Electronically signed by: Osorio Dockery M.D. Raissa Posey MD IMG XR PROCEDURES Clari l Result * XR Knee Right 1 or 2 Views (01/20/2024 1:51 AM CDT) Anatomical Region Laterality Modality Lower Extremities, Knee Right Computed Radiography 01/20/2024 2:08 AM CDT Impressions 01/20/2024 7:37 AM CDT 1. ??Acute right femoral diaphyseal fracture with mild distraction and minimal angulation of the distal component. This fracture is likely secondary to an underlying bisphosphonate-related stress fracture. 2. ??No acute osseous abnormality of the pelvis or right knee. Dictated by: Johnathan Colvin MD The radiology attending physician has personally reviewed this study, and had reviewed and/or edited this written report and agrees with it. Electronically signed by: Oosrio Dockery M.D. Narrative 01/20/2024 7:37 AM CDT EXAMINATION: XR PELVIS 1 OR 2 VIEWS, XR FEMUR RIGHT 2 OR MORE VIEWS, XR KNEE RIGHT 1 OR 2 VIEWS HISTORY: Osteoporosis on alendronate, presenting after a ground-level fall with right leg pain. COMPARISON: None. FINDINGS: Pelvis: No acute fracture of the pelvis on this single view examination. ??No dislocation. ??Joint spaces are grossly preserved. Right femur: Acute right humeral diaphyseal fracture with 6 mm of distraction and minimal posterior angulation of the distal femur. There is lateral cortical thickening along the fracture margin. Right knee: No acute fracture of the right knee. ??No knee joint effusion. ??Normal alignment. ??Joint spaces are preserved. Procedure Note Osorio Dockery MD - 01/20/2024 EXAMINATION: XR PELVIS 1 OR 2 VIEWS, XR FEMUR RIGHT 2 OR MORE VIEWS, XR KNEE RIGHT 1 OR 2 VIEWS HISTORY: Osteoporosis on alendronate, presenting after a ground-level fall with right leg pain. COMPARISON: None. FINDINGS: Pelvis: No acute fracture of the pelvis on this single view examination. No dislocation. Joint spaces are grossly preserved. Right femur: Acute right humeral diaphyseal fracture with 6 mm of distraction and minimal posterior angulation of the distal femur. There is lateral cortical thickening along the fracture margin. Right knee: No acute fracture of the right knee. No knee joint effusion. Normal alignment. Joint spaces are preserved. IMPRESSION: 1. Acute right femoral diaphyseal fracture with mild distraction and minimal angulation of the distal component. This fracture is likely secondary to an underlying bisphosphonate-related stress fracture. 2. No acute osseous abnormality of the pelvis or right knee. Dictated by: Johnathan oClvin MD The radiology attending physician has personally reviewed this study, and had reviewed and/or edited this written report and agrees with it. Electronically signed by: Osorio Dockery M.D. Christa Yen MD IMG XR PROCEDURES Fi nal Result * XR Pelvis 1 or 2 Views (01/20/2024 1:51 AM CDT) Anatomical Region Laterality Modality Body, Pelvis N/A Computed Radiogr aphy 01/20/2024 2:08 AM CDT Impressions 01/20/2024 7:37 AM CDT 1. ??Acute right femoral diaphyseal fracture with mild distraction and minimal angulation of the distal component. This fracture is likely secondary to an underlying bisphosphonate-related stress fracture. 2. ??No acute osseous abnormality of the pelvis or right knee. Dictated by: Johnathan Colvin MD The radiology attending physician has personally reviewed this study, and had reviewed and/or edited this written report and agrees with it. Electronically signed by: Osorio Dockery M.D. Narrative 01/20/2024 7:37 AM CDT EXAMINATION: XR PELVIS 1 OR 2 VIEWS, XR FEMUR RIGHT 2 OR MORE VIEWS, XR KNEE RIGHT 1 OR 2 VIEWS HISTORY: Osteoporosis on alendronate, presenting after a ground-level fall with right leg pain. COMPARISON: None. FINDINGS: Pelvis: No acute fracture of the pelvis on this single view examination. ??No dislocation. ??Joint spaces are grossly preserved. Right femur: Acute right humeral diaphyseal fracture with 6 mm of distraction and minimal posterior angulation of the distal femur. There is lateral cortical thickening along the fracture margin. Right knee: No acute fracture of the right knee. ??No knee joint effusion. ??Normal alignment. ??Joint spaces are preserved. Procedure Note Osorio Dockery MD - 01/20/2024 EXAMINATION: XR PELVIS 1 OR 2 VIEWS, XR FEMUR RIGHT 2 OR MORE VIEWS, XR KNEE RIGHT 1 OR 2 VIEWS HISTORY: Osteoporosis on alendronate, presenting after a ground-level fall with right leg pain. COMPARISON: None. FINDINGS: Pelvis: No acute fracture of the pelvis on this single view examination. No dislocation. Joint spaces are grossly preserved. Right femur: Acute right humeral diaphyseal fracture with 6 mm of distraction and minimal posterior angulation of the distal femur. There is lateral cortical thickening along the fracture margin. Right knee: No acute fracture of the right knee. No knee joint effusion. Normal alignment. Joint spaces are preserved. IMPRESSION: 1. Acute right femoral diaphyseal fracture with mild distraction and minimal angulation of the distal component. This fracture is likely secondary to an underlying bisphosphonate-related stress fracture. 2. No acute osseous abnormality of the pelvis or right knee. Dictated by: Johnathan Colvin MD The radiology attending physician has personally reviewed this study, and had reviewed and/or edited this written report and agrees with it. Electronically signed by: Osorio Dockery M.D. us Raissa Posey MD IMG XR PROCEDURES Clari l Result * eGFR (01/20/2024 1:17 AM CDT) Pathologist [facility] eGFR 72 >=60 mL/min/1. 73 m2 Comment: Interpretive Data Reference Interval Normal ?>/= 90 mL/min/1.73m2 Mildly decreased* ? 60 - 89 mL/min/1.73m2 Mildly to moderately decreased ?45 - 59 mL/min/1.73m2 Moderately to severely decreased ??30 - 44 mL/min/1.73m2 Severely decreased ?15 - 29 mL/min/1.73m2 Kidney Failure ?< 15 ??mL/min/1.73m2 *Relative to young adult level Estimated glomerular filtration rate is determined by the 2020 CKD-EPI equation recommended by the National [employer] (A Unifying Approach to GFR Estimation: Recommendations of the NKF-ASK Task Force on Reassessing the Inclusion of Race in Diagnosing Kidney Disease, JASN 2020). The CKD-EPI equation should not be used for patients with unstable renal function and has not been validated in children and those over 70. Current interpretive data was last reviewed 2021. Blood 01/20/2024 1:17 AM CDT 01/20/2024 1:28 AM CDT us Raissa Posey MD LAB BLOOD ORDERABLES F inal Result [facility] Department [place] [address] * Differential, auto (01/20/2024 1:17 AM CDT) Neutrophil abs 5.6 1.5 - 6.5 K/cumm Imm gran abs 0.1 0.0 - 0.1 K/cumm [facility] Lymphocyte abs 1.1 0.8 - 3.3 K/cumm [facility] Monocyte abs 0.4 0.2 - 0.8 K/cumm [facility] Eosinophil abs 0.2 0.0 - 0.5 K/cumm [facility] Basophil abs 0.0 0.0 - 0.1 K/cumm [facility] Neutrophil pct 75.9 % [facility] Comment: Interpretive Data Percent cell count reference ranges are not reported, since discordance with absolute values may lead to misinterpretation of CBC data. Current Interpretive Data was last revised on 2017. Imm gran pct 0.9 % [facility] Comment: Interpretive Data Percent cell count reference ranges are not reported, since discordance with absolute values may lead to misinterpretation of CBC data. Current Interpretive Data was last revised on 2017. Lymphocyte pct 14.7 % [facility] Comment: Interpretive Data Percent cell count reference ranges are not reported, since discordance with absolute values may lead to misinterpretation of CBC data. Current Interpretive Data was last revised on 2017. Monocyte pct 5.9 % [facility] Comment: Interpretive Data Percent cell count reference ranges are not reported, since discordance with absolute values may lead to misinterpretation of CBC data. Current Interpretive Data was last revised on 2017. Eosinophil pct 2.3 % [facility] Comment: Interpretive Data Percent cell count reference ranges are not reported, since discordance with absolute values may lead to misinterpretation of CBC data. Current Interpretive Data was last revised on 2017. Basophil pct 0.3 % [facility] Comment: Interpretive Data Percent cell count reference ranges are not reported, since discordance with absolute values may lead to misinterpretation of CBC data. Current Interpretive Data was last revised on 2017. Blood 01/20/2024 1:17 AM CDT 01/20/2024 1:28 AM CDT Raissa Posey MD LAB BLOOD ORDERABLES F inal Result Performing Organization Address [facility] de Phone Number [facility] Department [place] [address] * (ABNORMAL) CBC with auto differential (01/20/2024 1:17 AM CDT) [facility] WBC 7.4 3.8 - 9.9 K/cumm Hgb 10.7(L) 11.9 - 15.5 g/dL [facility] Hct 33.5(L) 35.6 - 45.5 % [facility] Plt 113(L) 150 - 400 K/cumm [facility] MPV 11.8 9.1 - 12.3 fL [facility] RBC 3.60(L) 3.90 - 5.20 M/cumm [facility] MCV 93.1 81.3 - 96.4 fL [facility] MCH 29.7 27.1 - 33.3 pg [facility] MCHC 31.9(L) 32.3 - 35.7 g/dL [facility] RDW CV 13.1 11.1 - 14.9 % [facility] RDW SD 44.3 35.7 - 48.1 fL [facility] NRBC abs 0.00 0.00 - 0.01 K/cumm [facility] Blood 01/20/2024 1:17 AM CDT 01/20/2024 1:28 AM CDT Raissa Posey MD LAB BLOOD ORDERABLES F inal Result Performing Organization Address [facility] de Phone Number [facility] Department [place] [address] * (ABNORMAL) aPTT (01/20/2024 1:17 AM CDT) [facility] aPTT 21(L) 28 - 38 sec Comment: Interpretive Data Heparin therapeutic range: 66.0 - 100.0 seconds. Range based on correlation with therapeutic heparin activity range of 0.3 - 0.7 Units/mL. Current interpretive data was last revised on 2022. Blood 01/20/2024 1:17 AM CDT 01/20/2024 1:24 AM CDT Raissa Posey MD LAB BLOOD ORDERABLES F inal Result Performing Organization Address [facility] de Phone Number [facility] Department [place] [address] * Protime-INR (01/20/2024 1:17 AM CDT) PT 11.9 9.7 - 13.0 sec INR 1.10 0.90 - 1.20 [facility] Comment: Interpretive data Oral anticoagulant therapeutic ranges: Venous thromboembolism prophylaxis or treatment: 2.0-3.0 CARDIOLOGY Standard range: 2.0-3.0 High-intensity range: 2.5-3.5 Refer to indication-specific guidelines for appropriate target ranges for prosthetic heart valve replacement. Current interpretive data was last revised on 2019. Blood 01/20/2024 1:17 AM CDT 01/20/2024 1:24 AM CDT Raissa Posey MD LAB BLOOD ORDERABLES F inal Result Performing Organization Address [facility] de Phone Number [facility] Department [place] [address] * Type and screen (01/20/2024 1:17 AM CDT) Nain, indirect Negative ABO Rh O Positive [facility] Blood 01/20/2024 1:17 AM CDT 01/20/2024 1:26 AM CDT Narrative [facility] - 01/20/2024 2:25 AM CDT Has the patient had Daratumumab or Isatuximab in the past 6 months?->Unknown Raissa Posey MD LAB BLOOD BANK TEST OR DERABLES Final Result Performing Organization Address [facility] Co de Phone Number [facility] Department [place] [address] * (ABNORMAL) Comprehensive metabolic panel (01/20/2024 1:17 AM CDT) Sodium 143 135 - 145 mmol/L Potassium, pl 3.7 3.3 - 4.9 mmol/L [facility] Chloride 109 97 - 110 mmol/L [facility] CO2 29 22 - 32 mmol/L [facility] Anion gap 5 2 - 15 mmol/L [facility] BUN 24 6 - 25 mg/dL [facility] Creatinine 0.88 0.60 - 1.10 mg/dL [facility] Glucose 113 70 - 199 mg/dL [facility] Comment: Interpretive Data Fasting glucose >/= 126 mg/dl is diagnostic for diabetes. ?? Fasting is defined as no caloric intake for at least 8 hours. Fasting glucose between 100 mg/dl to 125 mg/dl is diagnostic of prediabetes. In a patient with classic symptoms of hyperglycemia or hyperglycemic crisis, a random glucose >/= 200 mg/dl is diagnostic for diabetes. In the absence of unequivocal hyperglycemia, results should be confirmed by repeat testing. The classification and Diagnosis of Diabetes Diabetes Care 202; 46: S19-S40. Current interpretive data was last revised 2022. Calcium 8.6 8.5 - 10.3 mg/dL [facility] Bilirubin, total 0.2 0.1 - 1.2 mg/dL [facility] Protein, pl 5.6(L) 6.5 - 8.5 g/dL [facility] Albumin 3.3(L) 3.5 - 5.0 g/dL [facility] Alk phos 56 40 - 130 Units/L [facility] ALT 18 7 - 45 Units/L [facility] AST 31 10 - 45 Units/L [facility] Blood 01/20/2024 1:17 AM CDT 01/20/2024 1:28 AM CDT Raissa Posey MD LAB BLOOD ORDERABLES F inal Result [facility] Department [place] [address] from Last 3 Months Insurance MEDICARE [employer] MEDICARE [employer]ICARE [employer] Advance Directives For more information, please contact: [phone] * Full Code (Latest Code Status on File) Date Activated Date Inactivated Comments 01/20/2024 12:27 PM 01/24/2024 8:25 PM * Full Code Date Activated Date Inactivated Comments 01/20/2024 12:27 PM 01/20/2024 12:27 PM * Full Code Date Activated Date Inactivated Comments 11/09/2017 2:05 PM 11/10/2017 3:04 AM * Full Code Date Activated Date Inactivated Comments 11/09/2017 2:05 PM 11/09/2017 2:05 PM Care Teams Supervisor Blood Donor Recruiters Relationship Specialty Start Date End Date Vahe Aguilera MD [address] [place] [address] [place] [address] PCP - General Internal Medicine 7/10/18 Alia Ramey MD [address] [facility] [address] Consulting Physician Pain Management 05/09/22
--- OUTSIDE RECORDS SUMMARY | 2024-04-21 09:43 | XMS_ITS | Patient Health Record ---
Author Organization [facility] Address [address] [place] [address] Care Team Providers Care Photogrammetric Surveyor Name Role Phone Ale MATA, Vahe Primary Care Provider UnavailLawson James Unavailable [phone] Migration, Provider Unavailable Unavailable Allergies No Known Allergies Reason For Referral No Information Medications Medication SIG (Take, Route, Frequency, Duration) Notes Start Date End Date Status Alendronate Sodium 70 MG Oral for 84 Days Active Escitalopram Oxalate 10 MG 1 tablet Oral Once a day for 90 days Active Atorvastatin Calcium 40 MG TAKE 1 TABLET BY MOUTH EVERY DAY Oral for 90 Days Active Social History Tobacco Use: Social History Observation Description Date Details (start date - stop date) Never Smoker NA - NA Sex Assigned At : Social History Observation Description Sex Assigned At Female Tobacco Control (Standard) Question Answer Notes Tobacco use: Nonsmoker Problems Problem Type SNOMED Code ICD Code Onset Dates Problem Status W/U Status Risk Notes Problem Major depression, single episode (48444966) Major depressive disorder, single episode, unspecified (F32.9) 06/08/19 24 Active confirmed Problem Generalized anxiety disorder (64552151) Generalized anxiety disorder (F41.1) 06/08/19 24 Active confirmed Problem Hyperlipidaemia (43426067) HLD (hyperlipidemia) (E78.5) 01/20/20 24 Active confirmed Problem Lumbosacral spondylosis without myelopathy (62442878) Spondylosis of lumbar region without myelopathy or radiculopathy (M47.816) 05/09/19 23 Active confirmed Vital Signs Heart Rate 80 /min 04/09/2024 Height-cm 156.21 cm 04/09/2024 Blood pressure diastolic 78 mm Hg 04/09/2024 Weight-kg 54.7 kg 04/09/2024 Height 61.50 in 04/09/2024 Blood pressure systolic 116 mm Hg 04/09/2024 Weight 120.6 lbs 04/09/2024 BMI 22.42 kg/m2 04/09/2024 Encounters Encounter Location Date Provider Diagnosis [place] [address] [facility] [address] [place] [address] 04/27/2023 Lawson Maisha Major depressive disorder, single episode, unspecified F32.9 and Generalized anxiety disorder F41.1 [place] [address] [facility] [address] [place] [address] 06/08/2023 Lawson Maisha Major depressive disorder, single episode, unspecified F32.9 and Generalized anxiety disorder F41.1 [place] [address] [facility] [address] [place] [address] 09/12/2023 Lawson Maisha Major depressive disorder, single episode, unspecified F32.9 and Generalized anxiety disorder F41.1 [place] [address] [address] 04/09/2024 Lawson Maisha Major depressive disorder, single episode, unspecified F32.9 ; HLD (hyperlipidemia) E78.5 ; Spondylosis of lumbar region without myelopathy or radiculopathy M47.816 and Generalized anxiety disorder F41.1 [place] [address] [address] 04/30/2023 Provider Migration [place] [address] [address] 06/08/2023 Provider Migration [place] [address] [address] 08/11/2023 Provider Migration [facility], [place] [address] [address] 08/12/2023 Provider Migration [place] [address] [address] 03/04/2024 Lawson Maisha Assessments Encounter Date Diagnosis (ICD Code) Assessment Notes Treatment Notes Treatment Clinical Notes Section Notes 04/09/2024 HLD (hyperlipidemia) (ICD-10 - E78.5) Osteoporosis and Femur Fractures - Assessment: Patient had late surgeries due to Fosamax-induced right femur fracture and left femur stress fracture in December. Surgeries were performed on January 19 for the right femur and January 20 for the left femur. Patient underwent physical therapy and is recovering well. Mobility is improving, but still has a slight limp on the right side. Patient spent a week at [facility], followed by a week at inpatient therapy in [facility] . - Plan: Continue monitoring progress and encourage the patient to maintain mobility and strength exercises. No further intervention needed at this time. Depression and Anxiety - Assessment: Patient has been on escitalopram 20 mg for approximately 10 months and is considering reducing the dose to 10 mg due to feeling stable. - Plan: - Prescribe escitalopram 10 mg and instruct the patient to cut the current 20 mg tablets in half until they run out. - Advise the patient to monitor their mood and anxiety levels closely. If symptoms worsen, the patient can increase the dose back to 20 mg without needing to contact the provider immediately. - Schedule a 3-month follow-up appointment to assess the patient's progress and make any necessary adjustments to the medication regimen. - Encourage the patient to reach out or walk in if they need to see the provider before the scheduled follow-up appointment. - Keep the existing 20 mg prescription at the pharmacy while sending a new 10 mg prescription to [facility]. Physical Therapy - Assessment: Patient has completed physical therapy sessions at [facility] for about 2-3 weeks and is no longer attending. - Plan: No further intervention needed at this time. Encourage the patient to continue practicing exercises and mobility activities learned during physical therapy sessions. 04/09/2024 Spondylosis of lumbar region without myelopathy or radiculopathy (ICD-10 - M47.816) Osteoporosis and Femur Fractures - Assessment: Patient had late surgeries due to Fosamax-induced right femur fracture and left femur stress fracture in December. Surgeries were performed on January 19 for the right femur and January 20 for the left femur. Patient underwent physical therapy and is recovering well. Mobility is improving, but still has a slight limp on the right side. Patient spent a week at [facility], followed by a week at inpatient therapy in [facility] . - Plan: Continue monitoring progress and encourage the patient to maintain mobility and strength exercises. No further intervention needed at this time. Depression and Anxiety - Assessment: Patient has been on escitalopram 20 mg for approximately 10 months and is considering reducing the dose to 10 mg due to feeling stable. - Plan: - Prescribe escitalopram 10 mg and instruct the patient to cut the current 20 mg tablets in half until they run out. - Advise the patient to monitor their mood and anxiety levels closely. If symptoms worsen, the patient can increase the dose back to 20 mg without needing to contact the provider immediately. - Schedule a 3-month follow-up appointment to assess the patient's progress and make any necessary adjustments to the medication regimen. - Encourage the patient to reach out or walk in if they need to see the provider before the scheduled follow-up appointment. - Keep the existing 20 mg prescription at the pharmacy while sending a new 10 mg prescription to [facility]. Physical Therapy - Assessment: Patient has completed physical therapy sessions at [facility] for about 2-3 weeks and is no longer attending. - Plan: No further intervention needed at this time. Encourage the patient to continue practicing exercises and mobility activities learned during physical therapy sessions. 06/08/2023 Major depressive disorder, single episode, unspecified (ICD-10 - F32.9) 06/08/2023 Generalized anxiety disorder (ICD-10 - F41.1) 04/27/2023 Major depressive disorder, single episode, unspecified (ICD-10 - F32.9) 04/27/2023 Generalized anxiety disorder (ICD-10 - F41.1) 09/12/2023 Major depressive disorder, single episode, unspecified (ICD-10 - F32.9) Depression and Anxiety - Plan: - Continue Lexapro 20 mg daily. No changes in medication needed at this time. - Schedule a follow-up appointment in six months, with the option to see the patient earlier if needed. Spinal Stenosis - Plan: - Monitor the patient's response to the steroid injection. - Encourage the patient to attend their scheduled appointment next month for further evaluation and management. Hydroxyzine - Plan: - Discontinue hydroxyzine use. If the patient requires it in the future, they can discuss it with the provider. 09/12/2023 Generalized anxiety disorder (ICD-10 - F41.1) Depression and Anxiety - Plan: - Continue Lexapro 20 mg daily. No changes in medication needed at this time. - Schedule a follow-up appointment in six months, with the option to see the patient earlier if needed. Spinal Stenosis - Plan: - Monitor the patient's response to the steroid injection. - Encourage the patient to attend their scheduled appointment next month for further evaluation and management. Hydroxyzine - Plan: - Discontinue hydroxyzine use. If the patient requires it in the future, they can discuss it with the provider. 04/09/2024 Major depressive disorder, single episode, unspecified (ICD-10 - F32.9) Osteoporosis and Femur Fractures - Assessment: Patient had late surgeries due to Fosamax-induced right femur fracture and left femur stress fracture in December. Surgeries were performed on January 19 for the right femur and January 20 for the left femur. Patient underwent physical therapy and is recovering well. Mobility is improving, but still has a slight limp on the right side. Patient spent a week at [facility], followed by a week at inpatient therapy in [facility] . - Plan: Continue monitoring progress and encourage the patient to maintain mobility and strength exercises. No further intervention needed at this time. Depression and Anxiety - Assessment: Patient has been on escitalopram 20 mg for approximately 10 months and is considering reducing the dose to 10 mg due to feeling stable. - Plan: - Prescribe escitalopram 10 mg and instruct the patient to cut the current 20 mg tablets in half until they run out. - Advise the patient to monitor their mood and anxiety levels closely. If symptoms worsen, the patient can increase the dose back to 20 mg without needing to contact the provider immediately. - Schedule a 3-month follow-up appointment to assess the patient's progress and make any necessary adjustments to the medication regimen. - Encourage the patient to reach out or walk in if they need to see the provider before the scheduled follow-up appointment. - Keep the existing 20 mg prescription at the pharmacy while sending a new 10 mg prescription to [facility]. Physical Therapy - Assessment: Patient has completed physical therapy sessions at [facility] for about 2-3 weeks and is no longer attending. - Plan: No further intervention needed at this time. Encourage the patient to continue practicing exercises and mobility activities learned during physical therapy sessions. 04/09/2024 Generalized anxiety disorder (ICD-10 - F41.1) Osteoporosis and Femur Fractures - Assessment: Patient had late surgeries due to Fosamax-induced right femur fracture and left femur stress fracture in December. Surgeries were performed on January 19 for the right femur and January 20 for the left femur. Patient underwent physical therapy and is recovering well. Mobility is improving, but still has a slight limp on the right side. Patient spent a week at [facility], followed by a week at inpatient therapy in [facility] . - Plan: Continue monitoring progress and encourage the patient to maintain mobility and strength exercises. No further intervention needed at this time. Depression and Anxiety - Assessment: Patient has been on escitalopram 20 mg for approximately 10 months and is considering reducing the dose to 10 mg due to feeling stable. - Plan: - Prescribe escitalopram 10 mg and instruct the patient to cut the current 20 mg tablets in half until they run out. - Advise the patient to monitor their mood and anxiety levels closely. If symptoms worsen, the patient can increase the dose back to 20 mg without needing to contact the provider immediately. - Schedule a 3-month follow-up appointment to assess the patient's progress and make any necessary adjustments to the medication regimen. - Encourage the patient to reach out or walk in if they need to see the provider before the scheduled follow-up appointment. - Keep the existing 20 mg prescription at the pharmacy while sending a new 10 mg prescription to [facility]. Physical Therapy - Assessment: Patient has completed physical therapy sessions at [facility] for about 2-3 weeks and is no longer attending. - Plan: No further intervention needed at this time. Encourage the patient to continue practicing exercises and mobility activities learned during physical therapy sessions. Plan Of Treatment Next Appt Details Provider Name:Lawson Davis Maisha , 07/02/2024 11:00:00 AM, [address] [facility] [address], [facility] [address], [place], [address], Insurance Providers Payer Name Payer Address Payer Phone Subscriber Number Group Number Insured Name Patient Relationship to Insured Coverage Start Date Coverage End Date Medicare-[place] Medicare [address] [place] [phone] [id number] THOMAS PONCE Self - patient is the insured [facility] [employer] Medicare Supplement [address] [address] [place] [phone] [id number] THOMAS PONCE Self - patient is the insured Medical (General) History Medical History History ICD Code Problems: Generalized anxiety disorder Major depressive disorder Obsessive-compulsive disorder Somatoform disorder ,
--- OUTSIDE RECORDS SUMMARY | 2024-04-21 09:43 | XMS_ITS | Encounter Summary ---
Author Organization [facility] Address [address] [place] [address] Care Team Providers Care Inspector Final Assembly Electrical Name Role Phone Unavailable Primary Care Provider Unavailabl e Encounter Details Date Type Department Care Team (Late st Contact Info) Description 08/15/2023 Lab Requisition [facility] - DermPath Lab [address] [place] [address] Christy Moran MD [address] [place] [id number] Neoplasm of uncertain behavior of skin [...] Priority Date/Time Associated Diagnosis Comments DERMATOPATHOLOGY Routine 08/15/2023 12:0 0 AM CDT Neoplasm of uncertain behavior of skin documented in this encounter Results * DERMATOPATHOLOGY (08/15/2023 12:00 AM CDT) Case Report Dermatopathology Report ? Case: [id number] ? Authorizing Provider: ??Christy Moran MD ?Collected: ? 08/15/2023 12:00 AM ? Ordering Location: ? [facility] - ??Received: ?08/16/2023 01:53 PM ? DermPath Lab ? Pathologist: ? Bernadette Andrews MD ? Specimen: ?Skin, right inferior medial forehead ? 12:46 PM T DERMATOPATHOLOGY LABORATORY Final Diagnosis Specimen A. SKIN, right inferior medial forehead: BASAL CELL CARCINOMA, INFILTRATIVE PATTERN (C44.319) 12:46 PM T DERMATOPATHOLOGY LABORATORY Clinical History BCC 12:46 PM T DERMATOPATHOLOGY LABORATORY Gross Description Specimen A: Received is one formalin filled container labeled with the patient's name and designated right inferior medial forehead. The specimen consists of a shave biopsy measuring 7x4x2 mm. Jar 0. 12:46 PM T DERMATOPATHOLOGY LABORATORY Microscopic Description Specimen A. SKIN, right inferior medial forehead: Within the dermis there are nodular aggregates of basaloid cells associated with fibromyxoid stroma and epithelial-stromal clefts. At the advancing margin of the neoplasm, there are smaller angulated nests that infiltrate the dermis. 12:46 PM T DERMATOPATHOLOGY LABORATORY Disclaimer An external and internal positive and negative controls are appropriate for the histochemical, immunohistochemical and immunofluorescence stain(s) in this case (if any), except where stated explicitly. The performance characteristics of the stain(s) cited in this report were developed and its performance characteristic determined by the Dermatopathology Laboratory at [facility], directed by Dr. Nery Arteaga. These tests need not be, and therefore are not, approved by the [place] Food and Drug Administration. The tests are used for clinical purposes. Billing Codes Specimen Charges Stain Charges 53654 1 4 12:46 PM CDT DERMATOPATHOLOGY LABORATORY Embedded Images 4 12:46 PM CDT DERMATOPATHOLOGY LABORATORY Pathology/Cytolog y TISSUE SPECIMEN FROM SKIN / Unknown 08/15/2023 08/16/2023 1:53 PM CDT Christy Moran MD LAB - PATHOLOGY/CYTO LOGY ORDERABLES DERMATOPATHOLOGY LABORATORY [facility] - Department of Dermatology [address], [address] [phone] documented in this encounter Visit Diagnoses Diagnosis Neoplasm of uncertain behavior of skin documented in this encounter
--- OUTSIDE RECORDS SUMMARY | 2024-04-21 09:43 | XMS_ITS | Referral Summary ---
Author Organization [facility] Address [address] [place] [address] Care Team Providers Care Horseback Excavator Name Role Phone Vahe Aguilera MD Primary Care Provider [phone] Alia Ramey MD Unavailable Encounters Date Type Department Care Team Description 04/14/2024 10:04 AM MEDICAL LAB SPECIALIST - 04/14/2024 11:59 PM MEDICAL LAB SPECIALIST Hospital Encounter [facility] Pain [address] [address] Alia Ramey MD Lumbar radiculopathy Discharge Disposition: Discharge to home or self care 04/10/[address] [address] Sanjana Welch, PIERRE pt call 04/10/[address] [phone] Maxine Johnston RN Pre Arrival 04/04/[address] [phone] Tess Mota RN requests call back 03/28/2024 Telephone [facility] Pain [address] [address] Jesusita Martinez, associate account executive question 03/11/2024 Telephone [facility] [address] 1st [place] [address] Jojo Blanchard RN Call Back 03/11/2024 1:40 PM MEDICAL LAB SPECIALIST - 03/11/2024 11:59 PM MEDICAL LAB SPECIALIST Hospital Encounter [facility] [address] [place] [phone] Yosvany Bello MD Other fracture of right femur, initial encounter for closed fracture (HCC); Impending pathologic fracture Discharge Disposition: Discharge to home or self care 03/11/2024 2:10 PM MEDICAL LAB SPECIALIST Office Visit [facility] Orthopaedic Surgery [address] [place] [address] 6th [place] [address] [place] [phone] Yosvany Bello MD Other fracture of right femur, initial encounter for closed fracture (HCC) (Primary Dx); Impending pathologic fracture 02/13/[address] [phone] Angel Luis Zuniga RN 02/12/2024 12:00 PM MEDICAL LAB SPECIALIST Office Visit [facility] Orthopaedic Surgery [address] [place] [address] 6th [place] [address] [place] [phone] Yosvany Bello MD Other fracture of right femur, initial encounter for closed fracture (HCC) (Primary Dx) 01/20/2024 12:50 AM CDT - 01/24/2024 4:19 PM CDT Hospital Encounter [address] [phone] Christa Yen MD Sensing, Thomas Anderson, DO Other fracture of right femur, initial encounter for closed fracture (HCC) (Primary Dx); Fall, initial encounter; Impending pathologic fracture [Z91.89] Discharge Disposition: Discharge to an Rehab facility 01/21/2024 Orders Only [facility] Orthopaedic Surgery [address] [place] [address] 6th [place] [address] [place] [address] Yosvany Bello MD Other fracture of right femur, initial encounter for closed fracture (HCC) (Primary Dx); Closed fracture of shaft of left femur, unspecified fracture morphology, initial encounter (HCC) 01/21/2024 8:50 AM CDT Anesthesia Event [facility] Operating Room [address] [place] [address] Paul Miller MD Ukeje, Chideraa Cynthia, MD 01/21/2024 9:20 AM CDT - 01/21/2024 12:20 PM CDT Surgery [facility] Operating Room [address] [place] [address] Yosvany Bello MD INTRAMEDULLARY NAILING FEMUR - ANTEGRADE 01/20/2024 7:24 AM CDT Anesthesia Event [facility] Operating Room [address] [place] [phone] Fautso Hayden MD 01/20/2024 7:30 AM CDT - 01/20/2024 10:20 AM CDT Surgery [facility] Operating Room [address] [place] [address] Chito Garay MD INTRAMEDULLARY NAILING FEMUR - ANTEGRADE from Last 3 Months Allergies No known active allergies Medications aspirin 81 mg tablet Take 1 tablet (81 mg total) by mouth daily Active calcium acetate (PHOSLO) 667 mg tablet Take 2 tablets (1,334 mg total) by mouth 3 (three) times a day with meals Active atorvastatin (LIPITOR) 40 mg tablet Take 1 tablet (40 mg total) by mouth daily Active cyanocobalamin, vitamin B-12, (VITAMIN B-12 ORAL) [...] 2 (two) times a day 84 tablet 04/10/19 25 Discontin ued(Thera py completed ) traZODone (DESYREL) 50 mg tablet TAKE 1 TO 3 TABLETS BY MOUTH EVERY DAY AT BEDTIME FOR INSOMNIA 04/10/19 25 Discontin ued(Thera py completed ) [...] without myelopathy or radiculopathy 05/09/2022 Cervicalgia 07/09/2018 Social History Tobacco Use Types Packs/Day Years [...] PM CDT Sexual Orientation Not on file Last Filed Vital Signs Vital Sign Reading Time Taken Comments Blood Pressure 127/78 04/14/2024 11:19 AM MEDICAL LAB SPECIALIST Pulse 69 04/14/2024 11:19 AM MEDICAL LAB SPECIALIST Temperature 36.6 ??C (97.8 ??F) 04/14/2024 1 0:11 AM MEDICAL LAB SPECIALIST Respiratory Rate 18 04/14/2024 11:1 9 AM MEDICAL LAB SPECIALIST Oxygen Saturation 99% 04/14/2024 11: 19 AM MEDICAL LAB SPECIALIST Inhaled Oxygen Concentration - - Weight 63.4 kg (139 lb 11.2 oz) 01/23/2024 5:06 PM CDT Height 157.5 cm (5' 2 ) 01/20/2024 5:48 AM CDT Body Mass Index 25.55 01/20/2024 5:48 AM CDT Plan of Treatment Not on file Goals Goal Patient Goal Type Associated Problems Recent Progress Patient-Stated? Author [facility] Chronic Pain Care Plan Chronic Care Management On track(2024 10:13 AM MEDICAL LAB SPECIALIST) No Sanjana Welch, RN Note: Problem: Chronic Pain Goals: 1. Minimize further functional decline 2. Maximize quality of life 3. Control pain Strategies: - Activity/exercise program recommendation - Conservative stepwise pain medicine strategy with multi-disciplinary approach - Recommend healthy lifestyle strategies and compensatory methods as needed [facility] Fall Prevention Care Plan Chronic Care Management On track(2024 10:13 AM MEDICAL LAB SPECIALIST) No Jesusita Martinez RN Note: Problem: Falls Goals: 1. Maintain strength and balance as able 2. Prevent falls and fractures 3. Maximize safety of living environment Strategies: - Educate on fall prevention and follow-up as needed - Recommend activity/exercise program - Refer to allied health as needed - Recommend healthy lifestyle strategies and compensatory methods as needed Medical Devices Implanted Type Area Thermoplastic Technician Device Identifier Shelf Expiration Date Model / Serial / Lot Synthes Nail 140d 400mm 11mm Intramedullary Femoral Greater Trochanter Right Titanium Niobium Aluminum Adult 8 Hole Cannulated Reconstruction Light Green 5/6.5mm Screw 04.033.170s - S0 - [id number] Implanted:Qty: 1 on 01/20/2024 by Chito Garay MD at [facility] Nail Right: Femur Synthes I 04.033.17 0S / 0 / [employer] Nail 10mm 400mm Fem Greater Trochanter Left T2 Alpha Im Strl 2331-1040s - [id number] Implanted:Qty: 1 on 01/21/2024 by Yosvany Bello MD at [facility] Nail Left: Femur [employer] 01/23/2033 8199-4235 S / / [id number] Synthes Screw Bone Locking Cannulated Hip Threaded 6.5x85mm Recon 04.046.685s - [id number] Implanted:Qty: 1 on 01/20/2024 by Chito Garay MD at [facility] Screw Right: Femur Synthes I 04.046.68 5S / / Synthes Screw Bone Locking Cannulated Femoral Proximal Full Thread Light Green 5.0x40mm Titanium 04.045.040 - [id number] Implanted:Qty: 2 on 01/20/2024 by Chito Garay MD at [facility] Screw Right: Femur Synthes 04.045.04 0 / / Synthes Screw Bone Locking Cannulated Femoral Proximal Full Thread Light Green 5.0x46mm Titanium 04.045.046 - [id number] Implanted:Qty: 1 on 01/20/2024 by Chito Garay MD at [facility] Screw Right: Femur Synthes I 04.045.04 6 / / [employer] 6.5mm 90mm Lag Cannulated Femur Screw Bone Titanium Sterile 18976090s - [id number] Implanted:Qty: 1 on 01/21/2024 by Yosvany Bello MD at [facility] Screw Left: Femur [employer] [id number] 01/23/2025 8750-2756 S / / [id number] [employer] Screw Bone 5mm 35mm T2 Alpha Lock Strl 2360-5035s - [id number] Implanted:Qty: 1 on 01/21/2024 by Yosvany Bello MD at [facility] Screw Left: Femur [employer] [id number] 08/23/2033 6981-9226 S / / [id number] [employer] Screw Bone 5mm 45mm T2 Alpha Lock Strl 2360-5045s - [id number] Implanted:Qty: 1 on 01/21/2024 by Yosvany Bello MD at [facility] Screw Left: Femur [employer] [id number] 10/23/2032 0596-9505 S / / [id number] Explanted Type Area Thermoplastic Technician Device Identifier Shelf Expiration Date Model / Serial / Lot [employer] K-Wire Drill-Tip Recon 700-979s - [id number] Explanted:Qty: 1 on 01/21/2024 at [facility] Left: Femur [employer] [id number] 01/23/203123507050-8223 S / / [id number] [employer] K-Wire Drill-Tip Recon 6573240s - [id number] Explanted:Qty: 1 on 01/21/2024 by Yosvany Bello MD at [facility] Left: Femur [employer] [id number] 01/23/2030 2679-1211 S / / [id number] Procedures Procedure Name Priority Date/Time Associated Diagnosis Comments PAIN MGMT IMAGING LUMBAR/CAUDAL EPIDURAL STEROID INJ Schedule Routine, Read Routine (OP Routine) 04/14/2024 11:16 AM MEDICAL LAB SPECIALIST Lumbar radiculopathy XR FEMUR LEFT 2 OR MORE VIEWS Schedule Routine, Read Routine (OP Routine) 03/11/2024 1:51 PM MEDICAL LAB SPECIALIST Other fracture of right femur, initial encounter for closed fracture (HCC) Impending pathologic fracture XR FEMUR RIGHT 2 OR MORE VIEWS Schedule Routine, Read Routine (OP Routine) 03/11/2024 1:51 PM MEDICAL LAB SPECIALIST Other fracture of right femur, initial encounter [...] HOUR IP Routine 01/20/2024 9:21 AM CDT ND AN PROCEDURE PLACEHOLDER Routine 01/20/2024 8:07 AM CDT ND AN EMERGENT ENDOTRACHEAL AIRWAY Routine 01/20/2024 8:07 [...] Results * Imaging Lumbar/Caudal Epidural Steroid INJ (78613) (04/14/2024 11:16 AM MEDICAL LAB SPECIALIST) Narrative [facility] - 04/14/2024 11:27 AM MEDICAL LAB SPECIALIST The images from this study are not interpreted by Radiology. ??Please refer to the physician's procedure / OR operative note. us Alia Ramey MD IMG PAIN MGMT PROCEDU RES Final Result [facility] * XR Femur Right 2 or More Views (03/11/2024 1:51 PM MEDICAL LAB SPECIALIST) Anatomical Region Laterality Modality Lower Extremities, Thigh, Femur Right Computed Radiography 03/11/2024 2:12 PM MEDICAL LAB SPECIALIST Impressions 03/11/2024 2:23 PM MEDICAL LAB SPECIALIST 1. ??Healing, nailed right femoral shaft atypical stress fracture. 2. Unchanged prophylactic nailing of an incomplete left femoral shaft atypical stress fracture. Dictated by: Kayla Walls MD, PhD The radiology attending physician has personally reviewed this study, and had reviewed and/or edited this written report and agrees with it. Electronically signed by: Jimmie Perez M.D. Narrative 03/11/2024 2:23 PM MEDICAL LAB SPECIALIST EXAMINATION: XR FEMUR RIGHT 2 OR MORE VIEWS, XR FEMUR LEFT 2 OR MORE VIEWS HISTORY: ??Bisphosphonate-associated bilateral femoral stress fractures FINDINGS: LEFT FEMUR: 4 views of the left femur were submitted for evaluation with comparison to 01/21/2024. Unchanged intramedullary nail with proximal and distal interlocking screws within the left femur. Stable focus of cortical thickening along the lateral femoral cortex, telemarketing sales representative of stress fracture. Resolution of [...] cortical thickening along the lateral femoral cortex, telemarketing sales representative of stress fracture. Resolution of [...] 2 or More Views (03/11/2024 1:51 PM MEDICAL LAB SPECIALIST) Anatomical Region Laterality Modality Lower Extremities, Thigh, Femur Left Computed Radiography 03/11/2024 2:12 PM MEDICAL LAB SPECIALIST Impressions 03/11/2024 2:23 PM MEDICAL LAB SPECIALIST 1. ??Healing, nailed right femoral shaft atypical stress fracture. 2. Unchanged prophylactic nailing of an incomplete left femoral shaft atypical stress fracture. Dictated by: Kayla Walls MD, PhD The radiology attending physician has personally reviewed this study, and had reviewed and/or edited this written report and agrees with it. Electronically signed by: Jimmie Perez M.D. Narrative 03/11/2024 2:23 PM MEDICAL LAB SPECIALIST EXAMINATION: XR FEMUR RIGHT 2 OR MORE VIEWS, XR FEMUR LEFT 2 OR MORE VIEWS HISTORY: ??Bisphosphonate-associated bilateral femoral stress fractures FINDINGS: LEFT FEMUR: 4 views of the left femur were submitted for evaluation with comparison to 01/21/2024. Unchanged intramedullary nail with proximal and distal interlocking screws within the left femur. Stable focus of cortical thickening along the lateral femoral cortex, telemarketing sales representative of stress fracture. Resolution of [...] cortical thickening along the lateral femoral cortex, telemarketing sales representative of stress fracture. Resolution of [...] CBC without differential (01/23/2024 7:20 PM CDT) [facility] WBC 6.4 3.8 - 9.9 K/cumm Hgb 7.5(L) 11.9 - 15.5 g/dL [facility] Hct 23.6(L) 35.6 - 45.5 % [facility] Plt 93(L) 150 - 400 K/cumm [facility] MPV 12.6(H) 9.1 - 12.3 fL [facility] RBC 2.50(L) 3.90 - 5.20 M/cumm [facility] MCV 94.4 81.3 - 96.4 fL [facility] MCH 30.0 27.1 - 33.3 pg [facility] MCHC 31.8(L) 32.3 - 35.7 g/dL [facility] RDW CV 13.7 11.1 - 14.9 % [facility] RDW SD 46.6 35.7 - 48.1 fL [facility] NRBC abs 0.02(H) 0.00 - 0.01 K/cumm [facility] Blood 01/23/2024 7:20 PM CDT 01/23/2024 8:47 PM CDT us Chito Garay MD LAB BLOOD ORDERABLES Final Result [facility] Department [place] [address] * Phosphorus (01/23/2024 7:20 PM CDT) [facility] Phosphorus, pl 2.3 2.3 - 4.5 mg/dL Blood 01/23/2024 7:20 PM CDT 01/23/2024 8:46 PM CDT Chito Garay MD LAB BLOOD ORDERABLES Final Result Performing Organization Address City/State/ZIP Co mo Phone Number [facility] Department [place] [address] * eGFR (01/22/2024 7:09 PM CDT) [facility] eGFR >90 >=60 mL/min/1. 73 m2 Comment: [...] BLOOD ORDERABLES Final Result Performing Organization Address [facility] Co de Phone Number [facility] [place] [address] * (ABNORMAL) CBC without differential (01/22/2024 7:09 PM CDT) Pathologist [facility] WBC 7.8 3.8 - 9.9 K/cumm Hgb 7.5(L) 11.9 - 15.5 g/dL [facility] Hct 23.3(L) 35.6 - 45.5 % [facility] Plt 81(L) 150 - 400 K/cumm [facility] MPV 12.4(H) 9.1 - 12.3 fL [facility] RBC 2.51(L) 3.90 - 5.20 M/cumm [facility] MCV 92.8 81.3 - 96.4 fL [facility] MCH 29.9 27.1 - 33.3 pg [facility] MCHC 32.2(L) 32.3 - 35.7 g/dL [facility] RDW CV 14.3 11.1 - 14.9 % [facility] RDW SD 48.3(H) 35.7 - 48.1 fL [facility] NRBC abs 0.00 0.00 - 0.01 K/cumm [facility] Blood 01/22/2024 7:09 PM CDT 01/22/2024 8:48 PM CDT Chito Garay MD LAB BLOOD ORDERABLES Final Result [facility] Department [place] [address] * (ABNORMAL) Phosphorus (01/22/2024 7:09 PM CDT) Pathologist [facility] Phosphorus, pl 1.6(L) 2.3 - 4.5 mg/dL Blood 01/22/2024 7:09 PM CDT 01/22/2024 8:48 PM CDT Chito Garay MD LAB BLOOD ORDERABLES Final Result [facility] Department [place] [address] * Magnesium (01/22/2024 7:09 PM CDT) [facility] Magnesium 2.2 1.4 - 2.5 mg/dL Blood 01/22/2024 7:09 PM CDT 01/22/2024 8:48 PM CDT Chito Garay MD LAB BLOOD ORDERABLES Final Result Performing Organization Address [facility] de Phone Number [facility] [place] [address] * (ABNORMAL) Basic metabolic panel (01/22/2024 7:09 PM CDT) [facility] Sodium 140 135 - 145 mmol/L Potassium, pl 4.3 3.3 - 4.9 mmol/L [facility] Chloride 106 97 - 110 mmol/L [facility] CO2 32 22 - 32 mmol/L [facility] Anion gap 2 2 - 15 mmol/L [facility] BUN 19 6 - 25 mg/dL [facility] Creatinine 0.70 0.60 - 1.10 mg/dL [facility] Glucose 150 70 - 199 mg/dL [facility] Comment: Interpretive Data Fasting glucose >/= 126 [...] 2022. Calcium 7.9(L) 8.5 - 10.3 mg/dL [facility] Blood 01/22/2024 7:09 PM CDT 01/22/2024 8:48 PM CDT Chito Garay MD LAB BLOOD ORDERABLES Final Result Performing Organization Address [facility] Co de Phone Number [facility] [employer] [place] [address] * (ABNORMAL) Hemoglobin and hematocrit (01/22/2024 11:14 AM CDT) Pathologist [facility] Hgb 8.0(L) 11.9 - 15.5 g/dL Hct 24.0(L) 35.6 - 45.5 % [facility] Blood 01/22/2024 11:1 4 AM CDT 01/22/2024 11:35 AM CDT Sravan Akhtar Sensing DO LAB BLOOD ORDERABLES Final Result Performing Organization Address City/[facility] Co de Phone Number [facility] [employer] [place] [address] * Transfuse RBC (01/22/2024 4:58 AM CDT) Blood Sravan Sewell DO BLOOD TRANSFUSION ORD ERABLES Final Result Performing Organization Address City/[facility] [place] [address] * Prepare RBC: 1 Units (01/21/2024 11:33 PM CDT) Product code [id number] Unit Number [id number] [facility] Product Blood Type OPOS [facility] Dispense Status PRESUMED TRANSFUSED [facility] Blood 01/21/2024 11:3 3 PM CDT 01/21/2024 11:34 PM CDT Narrative [facility] - 01/22/2024 8:00 AM CDT Are special requirements needed? (All products are leukoreduced and CMV- safe)- >No Date required:-[id number] LRRBC # of [id number] Reasons:-Hgb <7 g/dL} Sravan Akhtar Sensing DO BLOOD BANK PRODUCT OR DERABLES Final Result [facility] Department [place] [address] * eGFR (01/21/2024 9:02 PM CDT) eGFR 83 >=60 mL/min/1. 73 m2 Comment: [...] of Race in Diagnosing Kidney Disease, JASN 202). The CKD-EPI equation should not be used for patients with unstable renal function and has not been validated in children and those over 70. Current interpretive data was last reviewed 2021. Blood 01/21/2024 9:02 PM CDT 01/21/2024 9:53 PM CDT Sravan Sewell DO LAB BLOOD ORDERABLES Final Result [facility] Department [place] [address] * (ABNORMAL) CBC without differential (01/21/2024 9:02 PM CDT) WBC 8.3 3.8 - 9.9 K/cumm Hgb 6.4(C) 11.9 - 15.5 g/dL [facility] Comment:Critical result call ed to and read back by ROGER RAGSDALE RN on 01 21 2024 at 2212 to Tess Young. Hct 19.9(L) 35.6 - 45.5 % [facility] Plt 80(L) 150 - 400 K/cumm [facility] MPV 12.1 9.1 - 12.3 fL [facility] RBC 2.09(L) 3.90 - 5.20 M/cumm [facility] MCV 95.2 81.3 - 96.4 fL [facility] MCH 30.6 27.1 - 33.3 pg [facility] MCHC 32.2(L) 32.3 - 35.7 g/dL [facility] RDW CV 13.4 11.1 - 14.9 % [facility] RDW SD 47.0 35.7 - 48.1 fL [facility] NRBC abs 0.00 0.00 - 0.01 K/cumm [facility] Blood 01/21/2024 9:02 PM CDT 01/21/2024 9:53 PM CDT Chito Garay MD LAB BLOOD ORDERABLES Final Result [facility] Department [place] [address] * (ABNORMAL) Phosphorus (01/21/2024 9:02 PM CDT) Pathologist [facility] Phosphorus, pl 2.0(L) 2.3 - 4.5 mg/dL Blood 01/21/2024 9:02 PM CDT 01/21/2024 9:53 PM CDT Chito Gaary MD LAB BLOOD ORDERABLES Final Result Performing Organization Address City/[facility] Co de Phone Number [facility] [place] [address] * Magnesium (01/21/2024 9:02 PM CDT) Pathologist [facility] Magnesium 1.8 1.4 - 2.5 mg/dL Blood 01/21/2024 9:02 PM CDT 01/21/2024 9:53 PM CDT Chito Garay MD LAB BLOOD ORDERABLES Final Result Performing Organization Address [facility] de Phone Number [facility] Department [place] [address] * (ABNORMAL) Basic metabolic panel (01/21/2024 9:02 PM CDT) [facility] Sodium 143 135 - 145 mmol/L Potassium, pl 4.6 3.3 - 4.9 mmol/L [facility] Chloride 109 97 - 110 mmol/L [facility] CO2 30 22 - 32 mmol/L [facility] Anion gap 4 2 - 15 mmol/L [facility] BUN 19 6 - 25 mg/dL [facility] Creatinine 0.78 0.60 - 1.10 mg/dL [facility] Glucose 131 70 - 199 mg/dL [facility] Comment: Interpretive Data Fasting glucose >/= 126 [...] 2022. Calcium 8.1(L) 8.5 - 10.3 mg/dL [facility] Blood 01/21/2024 9:02 PM CDT 01/21/2024 9:53 PM CDT Chito Garay MD LAB BLOOD ORDERABLES Final Result [facility] Department [place] [address] * XR Femur Left 2 or More [...] with recent surgery. Procedure Note Osorio Yi, - 01/21/2024 EXAMINATION: XR FEMUR LEFT 2 [...] 1 Hour (01/21/2024 9:57 AM CDT) Narrative [facility] - 01/21/2024 9:58 AM CDT The images from this study are not interpreted by Radiology. ??Please refer to the physician's procedure / OR operative note. us Yosvany Bello MD IMG FLUOROSCOPY PROCEDURE S Final Result Performing Organization Address City/State/[facility] Co de Phone Number [email or web address] * Airway (01/21/2024 9:23 AM CDT) [...] CDT 01/21/2024 6:46 AM CDT Narrative [facility] - 01/21/2024 7:47 AM CDT To be drawn after 500cc bolus of LR is done infusing us Sravan Akhtar Sensing DO LAB BLOOD ORDERABLES Final Result Performing Organization Address [facility] de Phone Number [facility] Department [place] [address] * (ABNORMAL) Lactate (01/20/2024 11:46 PM CDT) Lactate 2.5(H) 0.7 - 2.0 mmol/L Blood 01/20/2024 11:4 6 PM CDT 01/21/2024 12:09 AM CDT us Sravan Akhtar Sensing DO LAB BLOOD ORDERABLES Final Result Performing Organization Address [facility] Co de Phone Number [facility] Department [place] [address] * eGFR (01/20/2024 7:14 PM CDT) Pathologist [facility] eGFR 76 >=60 mL/min/1. 73 m2 Comment: [...] 7:14 PM CDT 01/20/2024 9:20 PM CDT [facility] DO LAB BLOOD ORDERABLES Final Result [facility] [place] [address] * (ABNORMAL) CBC without differential (01/20/2024 7:14 PM CDT) [facility] WBC 9.9 3.8 - 9.9 K/cumm Hgb 8.3(L) 11.9 - 15.5 g/dL [facility] Hct 25.9(L) 35.6 - 45.5 % [facility] Plt 110(L) 150 - 400 K/cumm [facility] MPV 12.7(H) 9.1 - 12.3 fL [facility] RBC 2.71(L) 3.90 - 5.20 M/cumm [facility] MCV 95.6 81.3 - 96.4 fL [facility] MCH 30.6 27.1 - 33.3 pg [facility] MCHC 32.0(L) 32.3 - 35.7 g/dL [facility] RDW CV 13.2 11.1 - 14.9 % [facility] RDW SD 45.3 35.7 - 48.1 fL [facility] NRBC abs 0.00 0.00 - 0.01 K/cumm [facility] Blood 01/20/2024 7:14 PM CDT 01/20/2024 9:25 PM CDT Chito Garay MD LAB BLOOD ORDERABLES Final Result [facility] Department [place] [address] * Phosphorus (01/20/2024 7:14 PM CDT) Pathologist [facility] Phosphorus, pl 3.7 2.3 - 4.5 mg/dL Blood 01/20/2024 7:14 PM CDT 01/20/2024 9:20 PM CDT Chito Garay MD LAB BLOOD ORDERABLES Final Result [facility] Department [place] [address] * Magnesium (01/20/2024 7:14 PM CDT) Pathologist [facility] Magnesium 1.8 1.4 - 2.5 mg/dL Blood 01/20/2024 7:14 PM CDT 01/20/2024 9:20 PM CDT Chito Garay MD LAB BLOOD ORDERABLES Final Result [facility] Department [place] [address] * Basic metabolic panel (01/20/2024 7:14 PM CDT) [facility] Sodium 142 135 - 145 mmol/L Potassium, pl 4.3 3.3 - 4.9 mmol/L [facility] Chloride 107 97 - 110 mmol/L [facility] CO2 30 22 - 32 mmol/L [facility] Anion gap 5 2 - 15 mmol/L [facility] BUN 23 6 - 25 mg/dL [facility] Creatinine 0.84 0.60 - 1.10 mg/dL [facility] Glucose 154 70 - 199 mg/dL [facility] Comment: Interpretive Data Fasting glucose >/= 126 [...] 2022. Calcium 8.7 8.5 - 10.3 mg/dL [facility] Blood 01/20/2024 7:14 PM CDT 01/20/2024 9:20 PM CDT Chito Garay MD LAB BLOOD ORDERABLES Final Result Performing Organization Address [facility]/ZIP Co de Phone Number [facility] Department [place] [address] * XR Femur Right 2 or More [...] MD IMG FLUOROSCOPY PROCE DURES Final Result [facility] * ND AN EMERGENT ENDOTRACHEAL AIRWAY, ND AN PROCEDURE PLACEHOLDER (01/20/2024 8:07 AM CDT) Narrative Allan Sorensen CRNA - 01/20/2024 8:07 AM CDT Allan Sorensen CRNA ? 01/20/2024 ??8:07 AM Airway Patient location: OR Urgency: emergent Indications for airway management: anesthesia Difficult airway: no Staff: Placed by: YOUTH SUPPORT WORKER: Allan Sorensen CRNA Emergent airway documentation: Patient [...] ECG 12-LEAD (01/20/2024 5:21 AM CDT) Narrative [facility] - 01/20/2024 5:21 AM CDT Christa Yen [...] Performed by: Christa Yen MD Authorized by: aRissa Posey MD Rate: ECG rate: 78 ECG [...] Raissa Posey MD ECG ORDERABLES Final Result [facility] * XR Femur Left 2 or More [...] 2:06 AM CDT) ABO Rh O Positive [facility] OTHER 01/20/2024 2:06 AM CDT 01/20/2024 2:25 AM CDT Christa Yen MD LAB BLOOD ORDERABLES Final Result [facility] Department [place] [address] [facility] * [...] by: Antonio Cowan M.D. Raissa Posey MD IM CT PROCEDURES Clari l Result * XR [...] Result * eGFR (01/20/2024 1:17 AM CDT) eGFR 72 >=60 mL/min/1. 73 m2 Comment: [...] of Race in Diagnosing Kidney Disease, JASN 202). The CKD-EPI equation should not be used for patients with unstable renal function and has not been validated in children and those over 70. Current interpretive data was last reviewed 2021. Blood 01/20/2024 1:17 AM CDT 01/20/2024 1:28 AM CDT us Raissa Posey MD LAB BLOOD ORDERABLES F inal Result [facility] Department [place] [address] * Differential, auto (01/20/2024 1:17 AM CDT) Neutrophil abs 5.6 1.5 - 6.5 K/cumm Imm gran abs 0.1 0.0 - 0.1 K/cumm [facility] Lymphocyte abs 1.1 0.8 - 3.3 K/cumm [facility] Monocyte abs 0.4 0.2 - 0.8 K/cumm [facility] Eosinophil abs 0.2 0.0 - 0.5 K/cumm [facility] Basophil abs 0.0 0.0 - 0.1 K/cumm [facility] Neutrophil pct 75.9 % [facility] Comment: Interpretive Data Percent cell count reference ranges are not reported, since discordance with absolute values may lead to misinterpretation of CBC data. Current Interpretive Data was last revised on 2017. Imm gran pct 0.9 % [facility] Comment: Interpretive Data Percent cell count reference ranges are not reported, since discordance with absolute values may lead to misinterpretation of CBC data. Current Interpretive Data was last revised on 2017. Lymphocyte pct 14.7 % [facility] Comment: Interpretive Data Percent cell count reference ranges are not reported, since discordance with absolute values may lead to misinterpretation of CBC data. Current Interpretive Data was last revised on 2017. Monocyte pct 5.9 % [facility] Comment: Interpretive Data Percent cell count reference ranges are not reported, since discordance with absolute values may lead to misinterpretation of CBC data. Current Interpretive Data was last revised on 2017. Eosinophil pct 2.3 % [facility] Comment: Interpretive Data Percent cell count reference ranges are not reported, since discordance with absolute values may lead to misinterpretation of CBC data. Current Interpretive Data was last revised on 2017. Basophil pct 0.3 % [facility] Comment: Interpretive Data Percent cell count reference ranges are not reported, since discordance with absolute values may lead to misinterpretation of CBC data. Current Interpretive Data was last revised on 2017. Blood 01/20/2024 1:17 AM CDT 01/20/2024 1:28 AM CDT us Raissa Posey MD LAB BLOOD ORDERABLES F inal Result [facility] Department [place] [address] * (ABNORMAL) CBC with auto differential (01/20/2024 1:17 AM CDT) WBC 7.4 3.8 - 9.9 K/cumm Hgb 10.7(L) 11.9 - 15.5 g/dL [facility] Hct 33.5(L) 35.6 - 45.5 % [facility] Plt 113(L) 150 - 400 K/cumm [facility] MPV 11.8 9.1 - 12.3 fL [facility] RBC 3.60(L) 3.90 - 5.20 M/cumm [facility] MCV 93.1 81.3 - 96.4 fL [facility] MCH 29.7 27.1 - 33.3 pg [facility] MCHC 31.9(L) 32.3 - 35.7 g/dL [facility] RDW CV 13.1 11.1 - 14.9 % [facility] RDW SD 44.3 35.7 - 48.1 fL [facility] NRBC abs 0.00 0.00 - 0.01 K/cumm [facility] Blood 01/20/2024 1:17 AM CDT 01/20/2024 1:28 AM CDT Raissa Posey MD LAB BLOOD ORDERABLES F inal Result Performing Organization Address [facility] de Phone Number [facility] [place] [address] * (ABNORMAL) aPTT (01/20/2024 1:17 AM CDT) aPTT 21(L) 28 - 38 sec Comment: Interpretive Data Heparin therapeutic range: 66.0 - 100.0 seconds. Range based on correlation with therapeutic heparin activity range of 0.3 - 0.7 Units/mL. Current interpretive data was last revised on 2022. Blood 01/20/2024 1:17 AM CDT 01/20/2024 1:24 AM CDT Raissa Posey MD LAB BLOOD ORDERABLES F inal Result Performing Organization Address [facility] de Phone Number [facility] [place] [address] * Protime-INR (01/20/2024 1:17 AM CDT) PT 11.9 9.7 - 13.0 sec INR 1.10 0.90 - 1.20 [facility] Comment: Interpretive data Oral anticoagulant therapeutic ranges: Venous thromboembolism prophylaxis or treatment: 2.0-3.0 CARDIOLOGY Standard range: 2.0-3.0 High-intensity range: 2.5-3.5 Refer to indication-specific guidelines for appropriate target ranges for prosthetic heart valve replacement. Current interpretive data was last revised on 2019. Blood 01/20/2024 1:17 AM CDT 01/20/2024 1:24 AM CDT Raissa Posey MD LAB BLOOD ORDERABLES F inal Result Performing Organization Address [facility] [place] [address] * Type and screen (01/20/2024 1:17 AM CDT) [facility] Nain, indirect Negative ABO Rh O Positive [facility] Blood 01/20/2024 1:17 AM CDT 01/20/2024 1:26 AM CDT Narrative [facility] - 01/20/2024 2:25 AM CDT Has the patient had Daratumumab or Isatuximab in the past 6 months?->Unknown Raissa Posey MD LAB BLOOD BANK TEST OR DERABLES Final Result Performing Organization Address [facility] de Phone Number [facility] [place] [address] * (ABNORMAL) Comprehensive metabolic panel (01/20/2024 1:17 AM CDT) [facility] Sodium 143 135 - 145 mmol/L Potassium, pl 3.7 3.3 - 4.9 mmol/L [facility] Chloride 109 97 - 110 mmol/L [facility] CO2 29 22 - 32 mmol/L [facility] Anion gap 5 2 - 15 mmol/L [facility] BUN 24 6 - 25 mg/dL [facility] Creatinine 0.88 0.60 - 1.10 mg/dL [facility] Glucose 113 70 - 199 mg/dL [facility] Comment: Interpretive Data Fasting glucose >/= 126 [...] 2022. Calcium 8.6 8.5 - 10.3 mg/dL [facility] Bilirubin, total 0.2 0.1 - 1.2 mg/dL [facility] Protein, pl 5.6(L) 6.5 - 8.5 g/dL [facility] Albumin 3.3(L) 3.5 - 5.0 g/dL [facility] Alk phos 56 40 - 130 Units/L [facility] ALT 18 7 - 45 Units/L [facility] AST 31 10 - 45 Units/L [facility] Blood 01/20/2024 1:17 AM CDT 01/20/2024 1:28 AM CDT Raissa Posey MD LAB BLOOD ORDERABLES F inal Result [facility] Department [place] [address] from Last 3 Months Insurance MEDICARE iMove MEDICARE [employer] MED[employer]ARE [employer] Advance Directives For more information, please contact: [phone] * Full Code (Latest Code Status on File) Date Activated Date Inactivated Comments 01/20/2024 12:27 PM 01/24/2024 8:25 PM * Full Code Date Activated Date Inactivated Comments 01/20/2024 12:27 PM 01/20/2024 12:27 PM * Full Code Date Activated Date Inactivated Comments 11/09/2017 2:05 PM 11/10/2017 3:04 AM * Full Code Date Activated Date Inactivated Comments 11/09/2017 2:05 PM 11/09/2017 2:05 PM Care Teams 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
--- OUTSIDE RECORDS SUMMARY | 2024-04-21 09:43 | XMS_ITS | Patient Health Summary ---
Author Organization [facility] Address [address] [place] [address] Care Team Providers Care Diver Pumper Name Role Phone Unavailable Primary Care Provider Unavailabl e Note from [facility],non-owned Affiliates and Associated Physician Practices is amultiple site organization consisting of ambulatory clinics and hospital sitesin [place], [place], [place] and [place]. This disclosure is being madepursuant to the Care Everywhere program and may not contain all information available regarding this patient. Last updated 17.[facility] Social History Tobacco Use Types Packs/Day Years Used Date Smoking Tobacco: Never Assessed Sex and Gender Information Value Date Recorded Sex Assigned at Not on file Gender Identity Not on file Sexual Orientation Not on file Procedures * DERMATOPATHOLOGY(Performed 10/31/2023) Performed for Neoplasm of uncertain behavior of skin * DERMATOPATHOLOGY(Performed 08/15/2023) Performed for Neoplasm of uncertain behavior of skin Results * DERMATOPATHOLOGY (10/31/2023 12:00 AM CDT) Only the most recent of2 resultswithin the time period is included. Case Report Dermatopathology Report ? Case: [id number] ? Authorizing Provider: ??Christy Moran MD ?Collected: ? 10/31/2023 12:00 AM ? Ordering Location: ? [facility] - ??Received: ?11/01/2023 12:29 PM ? DermPath Lab ? Pathologist: ? Margaret Andrews MD ? Specimen: ?Skin, nasal dorsum ? 4 12:28 PM T DERMATOPATHOLOGY LABORATORY Final Diagnosis Specimen A. SKIN, nasal dorsum: BASAL CELL CARCINOMA, INFILTRATIVE PATTERN (C44.311) 4 12:28 PM [facility] DERMATOPATHOLOGY LABORATORY Clinical History BCC 4 12:28 PM CDT DERMATOPATHOLOGY LABORATORY Gross Description Specimen A: Received is one formalin filled container labeled with the patient's name and designated nasal dorsum. The specimen consists of a shave biopsy measuring 4x3x1 mm. Jar 0. 4 12:28 PM T DERMATOPATHOLOGY LABORATORY Microscopic Description Specimen A. SKIN, nasal dorsum: Within the dermis there are nodular aggregates of basaloid cells associated with fibromyxoid stroma and epithelial-stromal clefts. At the advancing margin of the neoplasm, there are smaller angulated nests that infiltrate the dermis. 4 12:28 PM T DERMATOPATHOLOGY LABORATORY Disclaimer An external and internal positive and negative controls are appropriate for the histochemical, immunohistochemical and immunofluorescence stain(s) in this case (if any), except where stated explicitly. The performance characteristics of the stain(s) cited in this report were developed and its performance characteristic determined by the Dermatopathology Laboratory at [facility], directed by Dr. Nery Arteaga. These tests need not be, and therefore are not, approved by the [place] Food and Drug Administration. The tests are used for clinical purposes. Billing Codes Specimen Charges Stain Charges 32407 1 4 12:28 PM CDT DERMATOPATHOLOGY LABORATORY Embedded Images 4 12:28 PM CDT DERMATOPATHOLOGY LABORATORY Pathology/Cytolog y TISSUE SPECIMEN FROM SKIN / Unknown 10/31/2023 11/01/2023 12:29 PM CDT Christy Moran MD LAB - PATHOLOGY/CYTO LOGY ORDERABLES DERMATOPATHOLOGY LABORATORY [facility] - Department of Dermatology [address], [address] [phone]
--- OUTSIDE RECORDS SUMMARY | 2024-04-21 09:43 | XMS_ITS | Referral Summary ---
Author Organization [facility] Address [address] [place] [address] Care Team Providers Care Paper Handler Name Role Phone Unavailable Primary Care Provider Unavailabl e Source Comments [facility],non-owned Affiliates and Associated Physician Practices is amultiple site organization consisting of ambulatory clinics and hospital sitesin [place], [place], [place] and [place]. This disclosure is being madepursuant to the Care Everywhere program and may not contain all information available regarding this patient. Last updated 17.[facility] [employer] Social History Tobacco Use Types Packs/Day Years Used Date Smoking Tobacco: Never Assessed Sex and Gender Information Value Date Recorded Sex Assigned at Not on file Gender Identity Not on file Sexual Orientation Not on file Plan of Treatment Not on file
--- OUTSIDE RECORDS SUMMARY | 2024-04-21 09:43 | XMS_ITS ---
Author Organization [facility] Address [address] [place] [address] Care Team Providers Care Garbage Pick Up Man Name Role Phone Ale MATA, Vahe Primary Care Provider Lili ly Bryan Lipscombjay Unavailable [phone] Allergies No Known Allergies REASON FOR VISIT Follow up, phq less than 5, MIPS BP NORMAL Medications Medication SIG (Take, Route, Frequency, Duration) [...] Problem Status W/U Status Risk Notes Problem Hyperlipidaemia (10006235) HLD (hyperlipidemia) (E78.5) 01/20/20 24 Active confirmed Problem Lumbosacral spondylosis without myelopathy (05807082) Spondylosis of lumbar region without myelopathy or radiculopathy (M47.816) 05/09/19 23 Active confirmed Vital Signs Blood pressure systolic 116 mm Hg 04/09/19 25 Blood pressure diastolic 78 mm Hg 025 Heart Rate 80 /min 04/09/2024 Height 61.50 in 04/09/2024 Weight 120.6 lbs 04/09/2024 BMI 22.42 kg/m2 04/09/2024 Height-cm 156.21 cm 04/09/2024 Weight-kg 54.7 kg 04/09/2024 Encounters Encounter Location Date Provider Diagnosis [facility], [facility] [address] [place] [address] 04/09/2024 Lawson Lipscomb Major depressive disorder, single episode, unspecified F32.9 ; HLD (hyperlipidemia) E78.5 ; Spondylosis of lumbar region without myelopathy or radiculopathy M47.816 and Generalized anxiety disorder F41.1 Assessments Encounter Date Diagnosis (ICD Code) Assessment Notes Treatment Notes Treatment Clinical Notes Section Notes 04/09/2024 Major depressive disorder, single episode, unspecified [...] right side. Patient spent a week at [facility], followed by a week at inpatient therapy in [facility] . - Plan: Continue monitoring progress [...] sending a new 10 mg prescription to [facility]. Physical Therapy - Assessment: Patient has completed physical therapy sessions at [facility] for about 2-3 weeks and is no longer attending. - Plan: No further intervention needed at this time. Encourage the patient to continue practicing exercises and mobility activities learned during physical therapy sessions. 04/09/2024 HLD (hyperlipidemia) (ICD-10 - E78.5) Osteoporosis [...] right side. Patient spent a week at [facility], followed by a week at inpatient therapy in [facility] . - Plan: Continue monitoring progress [...] sending a new 10 mg prescription to [facility]. Physical Therapy - Assessment: Patient has completed physical therapy sessions at [facility] for about 2-3 weeks and is no [...] right side. Patient spent a week at [facility], followed by a week at inpatient therapy in [facility] . - Plan: Continue monitoring progress [...] sending a new 10 mg prescription to [facility] in [place]. Physical Therapy - Assessment: Patient has completed physical therapy sessions at [facility] for about 2-3 weeks and is no [...] right side. Patient spent a week at [facility], followed by a week at inpatient therapy in [facility] . - Plan: Continue monitoring progress [...] sending a new 10 mg prescription to [facility] in [place]. Physical Therapy - Assessment: Patient has completed physical therapy sessions at [facility] for about 2-3 weeks and is no longer attending. - Plan: No further intervention needed at this time. Encourage the patient to continue practicing exercises and mobility activities learned during physical therapy sessions. Plan Of Treatment Medication Medication Name Sig Start Date Stop Date Notes Escitalopram Oxalate 10 MG 1 tablet Oral Once a day for 90 days Next Appt Details Follow Up: 3 Months, Reason: Provider Name:Lawson Lipscomb , 07/02/2024 11:00:00 AM, [address], [facility] [address], [place], [address], Progress Notes * THOMAS PONCE MDOB: [birth year] (68 yo F)Acc No.[id number]:04/09/2024 Patient:?THOMAS PONCE Provider:?LAWSON LIPSCOMB MD :[id number]???Age:68 Y???Sex:Female D ate:04/09/2024 Address:[facility] [id number] Pcp:Vahe Aguilera MD Subjective: * Chief Complaints: * ???Follow upPhq less than 5M IPS BP NORMAL * HPI: ???Depression Screening:? The note is transcribed using speech recognition software. It is a reflection of a visit with the patient. It might have some inaccuracy, including medication names and transcribing errors, though efforts have been made to correct them. Chief Complaint: Bilateral femur surgeries follow-up and medication management Surgical History: Patient underwent bilateral femur surgeries in late December due to complications from Fosamax treatment for osteoporosis. The right femur was fractured, necessitating estefany insertion and surgery on January 19. X-rays revealed a stress fracture in the left femur, leading to preemptive surgery on October 28th to address an impending pathological fracture. Post-Operative Care: The patient completed inpatient physical therapy at [facility] for one week, followed by a week at [facility]. Subsequently, she attended outpatient physical therapy at [place] for approximately 2-3 weeks. Current Status: The patient reports good mobility improvement but still experiences a slight limp on the right side. Medication History: The patient has been on escitalopram for mood management. The dosage was initially 5 mg in May 2022, increased to 10 mg in June 2022, and further increased to 20 mg in May 2023. The patient has been stable on the current dose for about 10 months. Medication Management: The patient is considering reducing the escitalopram dosage due to improved mood. She expresses interest in lowering the dose to 10 mg and has enough medication at home for 1-2 weeks. Medical History: - Osteoporosis - Right femur fracture (January 19, 2023) - Left femur impending pathological fracture (January 20, 2023) - Depression Current and Past Medications and Supplements: - Escitalopram 20mg daily - Trazodone (dosage not specified) - Fosamax (previously taken for osteoporosis, no longer current) Review of Systems: - Musculoskeletal: Right leg limp, improving. ?GIDEON-7 (2018 Edition)?Feeling nervous, anxious, or on edge?Not at all,?Not being able to stop or control worrying?Not at all,?Worrying too much about different things?Not at all,?Trouble relaxing?Not at all,?Being so restless that it is hard to sit still?Not at all,?Becoming easily annoyed or irritable?Not at all,?Feeling afraid as if something awful might happen?Not at all,?Total GIDEON-7 Score?0,?Interpretation of Total?(0 to 4) No Anxiety.?[place]-Suicide Severity Rating Scale:?Suicide Risk (CSRS-screener)?in the past one month Have you wished you were or wished you could go to sleep and not wake up??No,?in the past one month Have you actually had any thoughts of killing yourself??No.?Depression screening:?PHQ-9?Little interest or pleasure in doing things?Not at all,?Feeling down, depressed, or hopeless?Not at all,?Trouble falling or staying asleep, or sleeping too much?Not at all,?Feeling tired or having little energy?Not at all,?Poor appetite or overeating?Not at all,?Feeling bad about yourself or that you are a failure, or have let yourself or your family down?Not at all,?Trouble concentrating on things, such as reading the newspaper or watching television?Not at all,?Moving or speaking so slowly that other people could have noticed; or the opposite, being so fidgety or restless that you have been moving around a lot more than usual?Not at all,?Thoughts that you would be better off or of hurting yourself in some way?Not at all,?Total Score?0.?Intervention?Depression Screening Findings?Negative,?Suicide Risk Assessment Performed? .? * ROS:?Performance Met:?Normal blood pressure reading documented, follow-up not required?(G8783). * Medical History:? * Surgical History:? * Hospitalization/Major Diagno stic Procedure:? * Social History:?Tobacco Use:?Tobacco Control (Standard)?Tobacco use:?Nonsmoker.?Migrated Social History:?Migrated Social History: Alcohol Intake: None 03/24/2022,Tobacco Years: Never smoker 03/24/2022. ???Miscellaneous:?Advance Care Planning?Are you your own decision-maker?Yes,?Do you have Power of Form Layer for Health or Medical??No.? * Medications:?TakingAtorvasta tin Calcium 40 MG Tablet TAKE 1 TABLET BY MOUTH EVERY DAY Oral Alendronate Sodium 70 MG Tablet Oral Escitalopram Oxalate 20 MG Tablet 1 tablet Oral once a day Taking Atorvastatin Calcium 40 MG Tablet TAKE 1 TABLET BY MOUTH EVERY DAY Oral Taking Alendronate Sodium 70 MG Tablet Oral Taking Escitalopram Oxalate 20 MG Tablet 1 tablet Oral once a day DiscontinuedhydrOXYzine HCl 10 MG Tablet Oral Medication List reviewed and reconciled with the patientDiscontinued hydrOXYzine HCl 10 MG Tablet Oral Medication List reviewed and reconciled with the patient * Allergies:?N.K.D.A.no[Allerg ies Verified] Objective: * Vitals:?BP:116/78mm Hg, HR:8 0/min, Wt:120.6lbs, Wt-k.7 kg, Ht: 61.50 in, Ht-cm: 156.21 cm, BMI:22.42Index, Body Surface Area: 1.54. * Examination: ???General Examination: ???Mental Status Examination: Patient reported improvement in mobility and overall condition following physical therapy. Expressed a desire to reduce medication (escitalopram) due to feeling stable. Vital Signs: review the notes for vitals Physical Examination: Patient reported a history of bilateral femur fractures due to medication-induced weakness, with subsequent surgeries on both legs. Noted ongoing limping on the right side but overall improvement in mobility. Right femur fracture occurred first, followed by surgery with estefany insertion. Left femur had a stress fracture, discovered during right leg x-ray. Surgeries performed on consecutive days, January 19 and . Patient completed inpatient physical therapy at [facility] for a week, followed by a week at [facility]. Outpatient physical therapy at [facility] for 2-3 weeks. Assessment: * Assessment: 1.?Major depressive disorder , single episode, unspecified - F32.9 (Primary)???2.?HLD (hyperlipidemia) - E78.5???3.?Spondylosis of lumbar region without myelopathy or radiculopathy - M47.816???4.?Generalized anxiety disorder - F41.1??? Osteoporosis and Femur Fract ures - Assessment: Patient had late surgeries due to Fosamax-induced right femur fracture and left femur stress fracture in December. Surgeries were performed on January 19 for the right femur and January 20 for the left femur. Patient underwent physical therapy and is recovering well. Mobility is improving, but still has a slight limp on the right side. Patient spent a week at [facility], followed by a week at inpatient therapy in [facility]. - Plan: Continue monitoring progress and encourage [...] sending a new 10 mg prescription to [facility]. Physical Therapy - Assessment: Patient has completed physical therapy sessions at [facility] for about 2-3 weeks and is no longer attending. - Plan: No further intervention needed at this time. Encourage the patient to continue practicing exercises and mobility activities learned during physical therapy sessions. Plan: * Treatment: * Procedure Codes:?84462 BEHAV ASSMT W/SCORE & DOCD/STAND [id number] NORMAL BP READING DOC F/U NOT RQR * Follow Up:?3 Months * Billing Information: * Visit Code:? 39883 OFFICE OUTPATIENT VISIT 25 MINUTES DETAILED HISTORY AND EXAM/MODERATE MEDICAL DECISION MAKING. * Procedure Codes:? 93802 BEHAV ASSMT W/SCORE & DOCD/STAND INSTRUMENT. G8783 NORMAL BP READING DOC F/U NOT RQR. * SUPPORT ANALYST Sign off status: Completed true * Provider:?LAWSON LIPSCOMB MD Date:?04/09 Generated for Celina sherman/Carlton/eTransmitting on:?04/21/2024 09:43 AM IS SUPPORT ANALYST History and Physical Notes * HPI (History of Present Illness) Category Sub-Category Detail Notes Category Not es Depression screening PHQ-9 Little inte rest or pleasure in doing things: Not at all Feeling down, depressed, or hopeless: No t at all Trouble falling or staying asleep, or sl eeping too much: Not at all Feeling tired or having little energy: N ot at all Poor appetite or overeating: Not at all Feeling bad about yourself o r that you are a failure, or have let yourself or your family down: Not at all Trouble concentrating on thi ngs, such as reading the newspaper or watching television: Not at all Moving or speaking so slowly that other people could have noticed; or the opposite, being so fidgety or restless that you have been moving around a lot more than usual: Not at all Thoughts that you would be b aisha off or of hurting yourself in some way: Not at all Total Score: 0 Intervention Depression Screening Findings: N egative Suicide Risk Assessment Performed: ____ Depression Screening GIDEON-7 (2018 Edition) Feelin g nervous, anxious, or on edge: Not at all Not being able to stop or control worryi ng: Not at all Worrying too much about different things : Not at all Trouble relaxing: Not at all Being so restless that it is hard to sit still: Not at all Becoming easily annoyed or irritable: No t at all Feeling afraid as if something awful leslie ht happen: Not at all Total GIDEON-7 Score: 0 Interpretation of Total: (0 to 4) No Anx iety [place]-Suicide Severity Rating Scale Suicide Risk (CSRS-screener) in the past one month Have you wished you were or wished you could go to sleep and not wake up?: No in the past one month Have y ou actually had any thoughts of killing yourself?: No Examination Category Sub-Category Detail Notes Category Not es General Examination Mental Status Examination: Patient reported improvement in mobility and overall condition following physical therapy. Expressed a desire to reduce medication (escitalopram) due to feeling stable. Vital Signs: review the notes for vitals Physical Examination: Patient reported a history of bilateral femur fractures due to medication-induced weakness, with subsequent surgeries on both legs. Noted ongoing limping on the right side but overall improvement in mobility. Right femur fracture occurred first, followed by surgery with estefany insertion. Left femur had a stress fracture, discovered during right leg x-ray. Surgeries performed on consecutive days, January 19 and . Patient completed inpatient physical therapy at [facility] for a week, followed by a week at [facility]. Outpatient physical therapy at [facility] for 2-3 weeks.
--- OUTSIDE RECORDS SUMMARY | 2024-04-21 09:44 | XMS_ITS | Continuity of Care Document ---
Author Organization [facility] Address [address] [place] [address] Phone Care Team Providers Care Musical Therapist Name Role Phone Cole OD, Rosendo Unavailable Unavailable Procedures Procedure Date Eye Exam & Treatment Refraction Eye Exam & Treatment Refraction Eye Exam & Treatment Eye Exam & Treatment Advance Directives Directive Yes / No Effective Date File Name No Information Encounters Encounter Description Practice Location Reason(s) For Visit Diagnoses Date Provider Providers Copied on Encounter [facility], [address] [place] [address] [address], [place], [place], [id number], tel:[phone] [facility] No Information Nov-0 2-201 0 Cole OD Rosendo. [address], [place], [place], [facility], . tel:[phone] [facility], [address] [place] [address] [address], [place], [place], [id number], tel:[phone] [facility] No Information 0 3-200 9 Chantelle Zuniga [address], [place], [place], [facility], . tel:[phone] [facility], [address] [place] [address] [address], [place], [place], [id number], tel:[phone] [facility] No Information Apr- 6-200 8 Chantelle Zuniga [address], [place], [address], [place]. tel:[phone] [facility], [address], [place], [place], [id number], [place] tel:[phone] [facility] No Information 0-200 7 Chantelle Stratton. [address] , [address], [place], [address], [place]. tel:[phone] Family History Family Member Type Diagnosis Age At Onset No Information Payers Payer name Insurance type Covered constitution party ID Ana wesley(s) [facility] CI [id number] Social History Type Description Quantity Date Captured Comments Sex Female Smoking Status No Information Chief Complaint And Reason For Visit No Information Reason For Referral Reason For Referral No Information History Of Present Illness Encounter Date Complaint History Of Prese nt Illness No Information Functional Status Date Functional Assessmen t No Information Instructions Date Instruction Additional Infor mation No Information Assessments Type Assessment Date No Information Patient Care Teams Name Effective Dates (start - stop) Status Members No Information
--- OUTSIDE RECORDS SUMMARY | 2024-04-21 09:44 | XMS_ITS ---
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 Name Role Phone Ale MATA, Vahe Primary Care Provider Ar Machado Unavailable [phone] Allergies No Known Allergies REASON FOR VISIT follow up Medications Medication SIG (Take, Route, Frequency, Duration) Notes Start Date End Date Status Escitalopram Oxalate 20 MG 1 tablet Oral once a day for 90 days Active Atorvastatin Calcium 40 MG TAKE 1 TABLET BY MOUTH EVERY DAY Oral for 90 Days Active Alendronate Sodium 70 MG Oral for 84 Days Active hydrOXYzine HCl 10 MG Oral for 30 Days Active Social History Tobacco Use: Social History Observation Description Date Details (start date - stop date) Never Smoker NA - NA Sex Assigned At : Social History Observation Description Sex Assigned At Female Tobacco Control (Standard) Question Answer Notes Tobacco use: Nonsmoker Problems Problem Type SNOMED Code ICD Code Onset Dates Problem Status W/U Status Risk Notes Problem Major depression, single episode (97594645) Major depressive disorder, single episode, unspecified (F32.9) 4 Active confirmed Problem Generalized anxiety disorder (76378799) Generalized anxiety disorder (F41.1) 4 Active confirmed Vital Signs Blood pressure systolic 123 mm Hg 09/12/19 24 Blood pressure diastolic 78 mm Hg 024 Heart Rate 70 /min 09/12/2023 Height 61.50 in 09/12/2023 Weight 121 lbs 09/12/2023 BMI 22.49 kg/m2 09/12/2023 Height-cm 156.21 cm 09/12/2023 Weight-kg 54.88 kg 09/12/2023 121 Encounters Encounter Location Date Provider Diagnosis [facility] [address] [place] [address] 09/12/2023 Ar Lipscomb Major depressive disorder, single episode, unspecified F32.9 and Generalized anxiety disorder F41.1 Assessments Encounter Date Diagnosis (ICD Code) Assessment Notes Treatment Notes Treatment Clinical Notes Section Notes 09/12/2023 Major depressive disorder, single episode, unspecified [...] they can discuss it with the provider. Plan Of Treatment Medication Medication Name Sig Start Date Stop Date Notes Escitalopram Oxalate 20 MG 1 tablet Oral once a day for 90 days Next Appt Details Follow Up: 6 Months, Reason: anxiety follow up Provider Name:Ar Lipscomb , 07/02/2024 11:00:00 AM, [address], [address], [place], [address], Progress Notes * THOMAS PONCE MDOB: [birth year] (68 yo F)Acc No.[id number]:09/12/2023 Patient:?THOMAS PONCE Provider:?AR LIPSCOMB MD :1955???Age:68 Y???Sex:Female D ate:09/12/2023 Address:[address], [place], [id number] Subjective: * Chief Complaints: * ???Follow up * HPI: ???Depression screening:?PHQ-9?Little interest or pleasure in doing things?Not at all,?Feeling down, depressed, or hopeless?Not at all,?Trouble falling or staying asleep, or sleeping too much?Not at all,?Feeling tired or having little energy?Several days,?Poor appetite or overeating?Not at all,?Feeling bad about [...] hurting yourself in some way?Not at all,?Total Score?1,?Interpretation?Minimal Depression.? Mental Health Status The patient reports significant improvement in their mental health, with no current depression or anxiety symptoms. Their PHQ-9 score is 1, and their GIDEON anxiety score is low, indicating minimal depression and anxiety. The patient denies having any thoughts about dying, , or self-harm. Medical Concerns The patient's primary medical concern is spinal stenosis, which has been causing difficulty with their legs. They received a steroid shot last Sunday but have not experienced any relief yet. They have a follow-up appointment scheduled for next month. Medication Management The patient is currently taking 20 mg of Lexapro and reports satisfaction with this medication. They have been prescribed hydroxyzine in the past but do not feel the need to take it currently, as it makes them sleepy, and they are managing well without it. ???Depression Screening:?GIDEON-7 (2018 Edition)?Feeling nervous, anxious, or on edge?Several days,?Not being able to stop or control worrying?Several days,?Worrying too much about different things?Several days,?Trouble relaxing?Not at all,?Being so restless that it is hard to sit still?Not at all,?Becoming easily annoyed or irritable?Not at all,?Feeling afraid as if something awful might happen?Not at all,?Total GIDEON-7 Score?3,?If you checked any problems, how difficult have they made it for you to do your work, take care of things at home, or get along with other people??Not difficult at all,?Interpretation of Total?(0 to 4) No Anxiety.?[place]-Suicide Severity Rating Scale:?Suicide Risk (CSRS-screener)?in the past one month Have you wished you were or wished you could go to sleep and not wake up??No,?in the past one month Have you actually had any thoughts of killing yourself??No,?Have you ever done anything, started to do anything, or prepared to do anything to end your life??No.? * Medical History:? * Surgical History:? * Hospitalization/Major Diagno stic Procedure:?No Hospitalization History. * Family History:?Mother: Pooja gnant tumor of breast .?Brother: Hypertensive disorder .?Sister: Malignant tumor of breast .? * Social History:?Tobacco Use:?Tobacco Control (Standard)?Tobacco use:?Nonsmoker.?Migrated Social History:?Migrated Social History: Alcohol Intake: None 03/24/2022,Tobacco Years: Never smoker 03/24/2022. * Medications:?TakingAtorvasta tin Calcium 40 MG Tablet TAKE 1 TABLET BY MOUTH EVERY DAY Oral Alendronate Sodium 70 MG Tablet Oral Escitalopram Oxalate 20 MG Tablet TAKE 1 TABLET BY MOUTH EVERY DAY Oral hydrOXYzine HCl 10 MG Tablet Oral Taking Atorvastatin Calcium 40 MG Tablet TAKE 1 TABLET BY MOUTH EVERY DAY Oral Taking Alendronate Sodium 70 MG Tablet Oral Taking Escitalopram Oxalate 20 MG Tablet TAKE 1 TABLET BY MOUTH EVERY DAY Oral Taking hydrOXYzine HCl 10 MG Tablet Oral DiscontinuedMultivitamin Adults Tablet Oral hydrOXYzine HCl 10 MG Tablet Oral Atorvastatin Calcium 40 MG Tablet Oral Aspirin 81 MG Capsule Oral , Notes to Pharmacist: *Pick strength- form from [facility] for eRX*Escitalopram Oxalate 10 MG Tablet Oral Restasis 0.05 % Emulsion Ophthalmic Alendronate Sodium 70 MG Tablet Oral ARIPiprazole 2 MG Tablet Oral LORazepam 0.5 MG Tablet Oral Escitalopram Oxalate 20 MG Tablet Oral Discontinued Multivitamin Adults Tablet Oral Discontinued hydrOXYzine HCl 10 MG Tablet Oral Discontinued Atorvastatin Calcium 40 MG Tablet Oral Discontinued Aspirin 81 MG Capsule Oral , Notes to Pharmacist: *Pick strength-form from [facility] for eRX*Discontinued Escitalopram Oxalate 10 MG Tablet Oral Discontinued Restasis 0.05 % Emulsion Ophthalmic Discontinued Alendronate Sodium 70 MG Tablet Oral Discontinued ARIPiprazole 2 MG Tablet Oral Discontinued LORazepam 0.5 MG Tablet Oral Discontinued Escitalopram Oxalate 20 MG Tablet Oral * Allergies:?N.K.D.A.no[Allerg ies Verified] Objective: * Vitals:?BP:sittin/78mm Hg, HR:70/min, Wt:121lbs, Wt-k.88 kg, Ht: 61.50 in, Ht-cm: 156.21 cm, BMI:22.49Index, Body Surface Area: 1.54. 121. * Examination: ???Psychiatry: ???Mental Status Examination: Patient reports no current symptoms of depression or anxiety. PHQ-9 score documented as 1, indicating minimal depression. GIDEON (Generalized Anxiety Disorder) score not fully documented, but patient denies major anxiety. Patient denies any thoughts of self-harm or suicidal ideation. Assessment: * Assessment: 1.?Major depressive disorder , single episode, unspecified - F32.9 (Primary)?2.?Generalized anxiety disorder - F41.1? Depression and Anxiety - Plan: - Continue [...] they can discuss it with the provider. Plan: * Treatment: * Procedure Codes:?G2211 VISIT COMPLEXITY INHERENT TO ONGOING CARE RELATED TO A PATIENT'S SINGLE, SERIOUS CONDITION OR A COMPLEX CONDITION * Preventive Medicine:? ??Counseling:?BP Management:?PRE-HYPERTENSIVE FOLLOW-UP PLAN:?Follow-up 4-6 months ____,?REFERRAL TO ALTERNATIVE / PRIMARY CARE PROVIDER:?Referral to general physician .? * Follow Up:?6 Months (Reason: anxiety follow up) * Billing Information: * Visit Code:? 38372 OFFICE OUTPATIENT VISIT 25 MINUTES DETAILED HISTORY AND EXAM/MODERATE MEDICAL DECISION MAKING. * Procedure Codes:? G2211 VISIT COMPLEXITY INHERENT TO ONGOING CARE RELATED TO A PATIENT'S SINGLE, SERIOUS CONDITION OR A COMPLEX CONDITION. * Sign off status: Completed true * Provider:?AR LIPSCOMB MD Date:?09/11 Generated for Celina sherman/Carlton/Catrina on:?04/21/2024 09:43 AM BUTT PRESSER History and Physical Notes * HPI (History of Present Illness) Category Sub-Category Detail Notes Category Not es Depression screening PHQ-9 Little inte rest or pleasure in doing things: Not at all Mental Health Status The patient reports significant improvement in their mental health, with no current depression or anxiety symptoms. Their PHQ-9 score is 1, and their GIDEON anxiety score is low, indicating minimal depression and anxiety. The patient denies having any thoughts about dying, , or self-harm. Medical Concerns The patient's primary medical concern is spinal stenosis, which has been causing difficulty with their legs. They received a steroid shot last Sunday but have not experienced any relief yet. They have a follow-up appointment scheduled for next month. Medication Management The patient is currently taking 20 mg of Lexapro and reports satisfaction with this medication. They have been prescribed hydroxyzine in the past but do not feel the need to take it currently, as it makes them sleepy, and they are managing well without it. Feeling down, depressed, or hopeless: No t at all Trouble falling or staying asleep, or sl eeping too much: Not at all Feeling tired or having little energy: S everal days Poor appetite or overeating: Not at all [...] some way: Not at all Total Score: 1 Interpretation: Minimal Depression Depression Screening GIDEON-7 (2018 Edition) Feelin g nervous, anxious, or on edge: Several days Not being able to stop or control worryi ng: Several days Worrying too much about different things : Several days Trouble relaxing: Not at all Being so restless that it is hard to sit still: Not at all Becoming easily annoyed or irritable: No t at all Feeling afraid as if something awful leslie ht happen: Not at all Total GIDEON-7 Score: 3 If you checked any problems, how difficult have they made it for you to do your work, take care of things at home, or get along with other people?: Not difficult at all Interpretation of Total: (0 to 4) No Anx iety [place]-Suicide Severity Rating Scale Suicide Risk (CSRS-screener) in the past one month Have you wished you were or wished you could go to sleep and not wake up?: No in the past one month Have y ou actually had any thoughts of killing yourself?: No ?Have you ever done anything , started to do anything, or prepared to do anything to end your life?: No Examination Category Sub-Category Detail Notes Category Not es Psychiatry Mental Status E xamination: Patient reports no current symptoms of depression or anxiety. PHQ-9 score documented as 1, indicating minimal depression. GIDEON (Generalized Anxiety Disorder) score not fully documented, but patient denies major anxiety. Patient denies any thoughts of self-harm or suicidal ideation.
--- OUTSIDE RECORDS SUMMARY | 2024-04-21 09:44 | XMS_ITS ---
Author Organization [facility] [employer] [facility] Address [address] [facility] [address] [place] [address] Care Team Providers Care Wire Steward Name Role Phone Ale MATA, Vahe Primary Care Provider Lawson Machado Unavailable [phone] REASON FOR VISIT Appointment Social History Sex Assigned At : Social History Observation Description Sex Assigned At Female Encounters Encounter Location Date Provider Diagnosis [facility] [employer] [facility] [address] [facility] [address] [place] [address] 03/04/2024 Lawson Ferrera Plan Of Treatment Next Appt Details Provider Name:Lawson Ferrera , 07/02/2024 11:00:00 AM, [address], [facility] [address], [place], [address], Progress Notes * THOMAS PONCE MDOB: [birth year] (68 yo F)Acc No.[id number]:03/04/2024 Patient:?THOMAS PONCE :1955???Age:68 Y???Sex:Female Address:[address], [address] * true * Date:? 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
== END 2024-04-21 09:14 | disposition home or self-care (01) ==
PROVIDERS: PCP Internal Medicine; Visit Provider Internal Medicine
DX: R91.1 Solitary pulmonary nodule (principal); R93.89 Abnormal findings on diagnostic imaging of other specified body structures
CPT/HCPCS: 71250

== ENCOUNTER 2024-06-23 15:11 | Outpatient (CLI) | payer MEDICARE, SELFPAY ==
--- NOTE | ~2024-06-23 | XR_ITS ---
EXAMINATION: XR forearm LT 2V DATE: 06/23/2024 15:29 INDICATION: One month of left forearm pain TECHNIQUE: AP an lateral views of the left forearm were obtained. COMPARISON: none FINDINGS: Alignment is normal. No fracture. Mild osteoarthritis at the triscaphe and first carpal metacarpal jennifer ints. Soft tissues are unremarkable. No elbow joint effusion. IMPRESSION: 1. 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 No acute osseous abnormality. Reviewed, dictated and finalized at location B. IMPRESSION: 1. 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 No acute osseous abn ormality.
--- NOTE | ~2024-06-23 | XR_ITS ---
XR elbow LT min 3V 06/23/2024 15:29 Indication: Left elbow pain Procedure: 3 views left elbow Comparison: No prior studies for comparison. Findings: No fracture, subluxation or dislocation. No significant joint effusion. There is anatomic a lignment. Impression: 1: No significant bone or joint abnormality. Reviewed, dictated and finalized at location A. Impression: 1: No significant bone or joint abnormality.
--- OUTSIDE RECORDS SUMMARY | 2024-06-23 16:45 | XMS_ITS | Clinical Summary ---
Author Organization [facility] Address [address] [place] [address] Care Team Providers Care Director Semiconductor Name Role Phone Vahe Aguilera MD Primary Care Provider [phone] Alia Ramey MD Unavailable [phone] Allergies No known active allergies Medications aspirin [...] as needed for dry eyes 4 Active amoxicillin 500 mg capsule 5 Active methylPREDNISol one (MEDROL DOSEPACK) 4 mg Dosepack FOLLOW PACKAGE DIRECTIONS 5 Active Active Problems Problem Noted Date Diagnosed Date [...] Encounters Date Type Department Care Team Description 06/10/2024 1:10 PM CDT Office Visit [facility] Orthopaedic Surgery [address] [facility] 6th [place] [address] [place] [address] Yosvany Bello MD Other fracture of right femur, initial encounter for closed fracture (HCC) (Primary Dx); Impending pathologic fracture 06/10/2024 12:20 PM CDT - 06/10/2024 11:59 PM CDT Hospital Encounter [facility] [address] [place] [address] Other fracture of right femur, initial encounter for closed fracture (HCC); Impending pathologic fracture Discharge Disposition: Discharge to home or self care 04/14/2024 10:04 AM POST HOLE DIGGING MACHINE OPERATOR - 04/14/2024 11:59 PM POST HOLE DIGGING MACHINE OPERATOR Hospital Encounter [facility] [place] at [address] [address] Alia Ramey MD Lumbar radiculopathy Discharge Disposition: Discharge to home or self care 04/10/2024 Telephone [facility] [address] [address] Sanjana Welch, PIERRE pt call 04/10/[address] [address] Maxine Johnston RN Pre Arrival 04/04/[address] [address] Tess Mota RN requests call back 03/28/[address] [address] Jesusita Martinez RN medication question from Last 3 Months Surgical History Surgery [...] Comments Blood Pressure 127/78 04/14/2024 11:19 AM POST HOLE DIGGING MACHINE OPERATOR Pulse 69 04/14/2024 11:19 AM POST HOLE DIGGING MACHINE OPERATOR Temperature 36.6 C (97.8 F) 04/14/2024 10:11 AM POST HOLE DIGGING MACHINE OPERATOR Respiratory Rate 18 04/14/2024 11:1 9 AM POST HOLE DIGGING MACHINE OPERATOR Oxygen Saturation 99% 04/14/2024 11: 19 AM POST HOLE DIGGING MACHINE OPERATOR Inhaled Oxygen Concentration - - Weight 63.4 [...] Pneumococcal vaccine 65+ (3 of 3 - PCV20 or PCV21) 12/10/2022 12/10/2017, 12/07/2016 Depression Screening 03/28/2023 03/28/2022 Influenza Vaccine (#1) 2023 , 12/24/2018, 12/10/2017, Additional history exists Fall Risk Assessment 04/14/2025 04/14/2024, 01/24/2024, 01/16/2024, Additional history exists Zoster Vaccine Completed 07/07/2018, 03/28, 12/06/2012 Goals Goal Patient Goal Type Associated Problems Recent Progress Patient-Stated? Author CCM Chronic Pain Care Plan Chronic Care Management On track(2024 10:13 AM POST HOLE DIGGING MACHINE OPERATOR) No Sanjana Welch, RN Note: Problem: Chronic Pain Goals: 1. Minimize further functional decline 2. Maximize quality of life 3. Control pain Strategies: - Activity/exercise program recommendation - Conservative stepwise pain medicine strategy with multi-disciplinary approach - Recommend healthy lifestyle strategies and compensatory methods as needed [facility] Fall Prevention Care Plan Chronic Care Management On track(2024 10:13 AM POST HOLE DIGGING MACHINE OPERATOR) No Jesusita Martinez RN Note: Problem: Falls Goals: 1. Maintain strength and balance as able 2. Prevent falls and fractures 3. Maximize safety of living environment Strategies: - Educate on fall prevention and follow-up as needed - Recommend activity/exercise program - Refer to allied health as needed - Recommend healthy lifestyle strategies and compensatory methods as needed Medical Devices Implanted Type Area Wireworker Device Identifier Shelf Expiration Date Model / Serial / Lot Synthes Nail 140d 400mm 11mm Intramedullary Femoral Greater Trochanter Right Titanium Niobium Aluminum Adult 8 Hole Cannulated Reconstruction Light Green 5/6.5mm Screw 04.033.170s - S0 - [id number] Implanted:Qty: 1 on 01/20/2024 by Chito Garay MD at [facility] Nail Right: Femur Synthes I 04.033.17 0S / 0 / [employer] Nail 10mm 400mm Fem Greater Trochanter Left T2 Alpha Im Strl 2331-1040s - [id number] Implanted:Qty: 1 on 01/21/2024 by Yosvany Bello MD at [facility] Nail Left: Femur [employer] 01/23/2033 [id number] S / / [id number] Synthes Screw Bone Locking Cannulated Hip Threaded 6.5x85mm Recon 04.046.685s - [id number] Implanted:Qty: 1 on 01/20/2024 by Chito Garay MD at [facility] Screw Right: Femur Synthes I 04.046.68 5S / / Synthes Screw Bone Locking Cannulated Femoral Proximal Full Thread Light Green 5.0x40mm Titanium 04.045.040 - [id number] Implanted:Qty: 2 on 01/20/2024 by Chito Garay MD at [facility] Screw Right: Femur Synthes 04.045.04 0 / / Synthes Screw Bone Locking Cannulated Femoral Proximal Full Thread Light Green 5.0x46mm Titanium 04.045.046 - [id number] Implanted:Qty: 1 on 01/20/2024 by Chito Garay MD at [facility] Screw Right: Femur Synthes I 04.045.04 6 / / [employer] 6.5mm 90mm Lag Cannulated Femur Screw Bone Titanium Sterile 1897-6090s - [id number] Implanted:Qty: 1 on 01/21/2024 by Yosvany Bello MD at [facility] Screw Left: Femur [employer] [id number] 01/23/2025 7958-8914 S / / [id number] [employer] Screw Bone 5mm 35mm T2 Alpha Lock Strl 2360-5035s - [id number] Implanted:Qty: 1 on 01/21/2024 by Yosvany Bello MD at [facility] Screw Left: Femur [employer] [id number] 08/23/2033 0598-8302 S / / [id number] [employer] Screw Bone 5mm 45mm T2 Alpha Lock Strl 2360-5045s - [id number] Implanted:Qty: 1 on 01/21/2024 by Yosvany Bello MD at [facility] Screw Left: Femur [employer] [id number] 10/23/2032 2671-2887 S / / [id number] Explanted Type Area Wireworker Device Identifier Shelf Expiration Date Model / Serial / Lot [employer] K-Wire Drill-Tip Recon 742-185s - [id number] Explanted:Qty: 1 on 01/21/2024 at [facility] Left: Femur [employer] [id number] 01/23/203123507637-5999 S / / [id number] [employer] K-Wire Drill-Tip Recon 7251-7250s - [id number] Explanted:Qty: 1 on 01/21/2024 by Yosvany Bello MD at [facility] Left: Femur [employer] [id number] 01/23/2030 3139-8968 S / / [id number] Procedures Procedure Name Priority Date/Time Associated Diagnosis Comments XR FEMUR LEFT 2 OR MORE VIEWS Schedule Routine, Read Routine (OP Routine) 06/10/2024 12:39 PM CDT Other fracture of right femur, initial encounter for closed fracture (HCC) Impending pathologic fracture XR FEMUR RIGHT 2 OR MORE VIEWS Schedule Routine, Read Routine (OP Routine) 06/10/2024 12:39 PM CDT Other fracture of right femur, initial encounter for closed fracture (HCC) Impending pathologic fracture PAIN MGMT IMAGING LUMBAR/CAUDAL EPIDURAL STEROID INJ Schedule Routine, Read Routine (OP Routine) 04/14/2024 11:16 AM POST HOLE DIGGING MACHINE OPERATOR Lumbar radiculopathy from Last 3 Months Results * XR Femur Right 2 or More Views (06/10/2024 12:39 PM CDT) Anatomical Region Laterality Modality Lower Extremities, Thigh, Femur Right Computed Radiography 06/10/2024 3:07 PM CDT Impressions 06/10/2024 5:12 PM CDT 1. Healing, reduced and instrumented midshaft right femoral stress fracture. 2. Unchanged left femoral intramedullary nailing of atypical midshaft stress fracture. Dictated by: Van Carnes M.D. The radiology attending physician has personally reviewed this study, and had reviewed and/or edited this written report and agrees with it. Electronically signed by: Cuco Ruelas D.O. Narrative 06/10/2024 5:12 PM CDT EXAMINATION: XR FEMUR LEFT 2 OR MORE VIEWS, XR FEMUR RIGHT 2 OR MORE VIEWS HISTORY: fracture COMPARISON: 03/11/2024 FINDINGS: Right: Healing, reduced and instrumented midshaft femur fracture for atypical stress fracture. No additional fracture or dislocation. Left: No acute fracture or dislocation. Unchanged intramedullary nail within the left femur. Redemonstration of cortical thickening along the lateral femoral cortex compatible with atypical stress fracture. Procedure Note Artur Ruelaston Ailyn, DO - 06/10/2024 EXAMINATION: XR FEMUR LEFT 2 OR MORE VIEWS, XR FEMUR RIGHT 2 OR MORE VIEWS HISTORY: fracture COMPARISON: 03/11/2024 FINDINGS: Right: Healing, reduced and instrumented midshaft femur fracture for atypical stress fracture. No additional fracture or dislocation. Left: No acute fracture or dislocation. Unchanged intramedullary nail within the left femur. Redemonstration of cortical thickening along the lateral femoral cortex compatible with atypical stress fracture. IMPRESSION: 1. Healing, reduced and instrumented midshaft right femoral stress fracture. 2. Unchanged left femoral intramedullary nailing of atypical midshaft stress fracture. Dictated by: Van Carnes M.D. The radiology attending physician has personally reviewed this study, and had reviewed and/or edited this written report and agrees with it. Electronically signed by: Cuco Ruelas D.O. us Yosvany Bello MD IMG XR PROCEDURES Final R esult * XR Femur Left 2 or More Views (06/10/2024 12:39 PM CDT) Anatomical Region Laterality Modality Lower Extremities, Thigh, Femur Left Computed Radiography 06/10/2024 3:07 PM CDT Impressions 06/10/2024 5:12 PM CDT 1. Healing, reduced and instrumented midshaft right femoral stress fracture. 2. Unchanged left femoral intramedullary nailing of atypical midshaft stress fracture. Dictated by: Van Carnes M.D. The radiology attending physician has personally reviewed this study, and had reviewed and/or edited this written report and agrees with it. Electronically signed by: Cuco Ruelas D.O. Narrative 06/10/2024 5:12 PM CDT EXAMINATION: XR FEMUR LEFT 2 OR MORE VIEWS, XR FEMUR RIGHT 2 OR MORE VIEWS HISTORY: fracture COMPARISON: 03/11/2024 FINDINGS: Right: Healing, reduced and instrumented midshaft femur fracture for atypical stress fracture. No additional fracture or dislocation. Left: No acute fracture or dislocation. Unchanged intramedullary nail within the left femur. Redemonstration of cortical thickening along the lateral femoral cortex compatible with atypical stress fracture. Procedure Note Artur Ruelaston Ailyn, - 06/10/2024 EXAMINATION: XR FEMUR LEFT 2 OR MORE VIEWS, XR FEMUR RIGHT 2 OR MORE VIEWS HISTORY: fracture COMPARISON: 03/11/2024 FINDINGS: Right: Healing, reduced and instrumented midshaft femur fracture for atypical stress fracture. No additional fracture or dislocation. Left: No acute fracture or dislocation. Unchanged intramedullary nail within the left femur. Redemonstration of cortical thickening along the lateral femoral cortex compatible with atypical stress fracture. IMPRESSION: 1. Healing, reduced and instrumented midshaft right femoral stress fracture. 2. Unchanged left femoral intramedullary nailing of atypical midshaft stress fracture. Dictated by: Van Carnes M.D. The radiology attending physician has personally reviewed this study, and had reviewed and/or edited this written report and agrees with it. Electronically signed by: Cuco Ruelas D.O. us Yosvany Bello MD IMG XR PROCEDURES Final R esult * Imaging Lumbar/Caudal Epidural Steroid INJ (17260) (04/14/2024 11:16 AM POST HOLE DIGGING MACHINE OPERATOR) Narrative [facility] - 04/14/2024 11:27 AM POST HOLE DIGGING MACHINE OPERATOR The images from this study are not interpreted by Radiology. Please refer to the physician's procedure / OR operative note. us Alia Ramey MD IMG PAIN MGMT PROCEDU RES Final Result [facility] from Last 3 Months Insurance MEDICARE [employer] MEDICARE [employer] MEDICARE [employer] Advance Directives For more information, please contact: [phone] * Full Code (Latest Code Status on File) Date Activated Date Inactivated Comments 01/20/2024 12:27 PM 01/24/2024 8:25 PM * Full Code Date Activated Date Inactivated Comments 01/20/2024 12:27 PM 01/20/2024 12:27 PM * Full Code Date Activated Date Inactivated Comments 11/09/2017 2:05 PM 11/10/2017 3:04 AM * Full Code Date Activated Date Inactivated Comments 11/09/2017 2:05 PM 11/09/2017 2:05 PM Care Teams Director Semiconductor Relationship Specialty Start Date End Date Vahe Aguilera MD [address] [facility] [address] [facility] [address] [place] [address] PCP - General Internal Medicine 10/02/17 Alia Ramey MD [address] [facility] [place] [address] Consulting Physician Pain Management 05/09/22
--- OUTSIDE RECORDS SUMMARY | 2024-06-23 16:45 | XMS_ITS | Encounter Summary ---
Author Organization [facility] Address [address] [facility] [place] [address] Care Team Providers Care Costume Specialist Name Role Phone Unavailable Primary Care Provider Unavailabl e Encounter Details Date Type Department Care Team (Late st Contact Info) Description 10/31/2023 Lab Requisition [facility] - DermPath Lab [address] [facility] [place] [id number] Christy Moran MD [address] [place] [address] Neoplasm of uncertain behavior of skin [...] 12:00 AM CDT) Case Report Dermatopathology Report Case: [id number] Authorizing Provider: Christy Moran MD Collected: 10/31/2023 12:00 AM Ordering Location: [facility] Physician [facility] - Received: 11/01/2023 12:29 PM DermPath Lab Pathologist: Margaret [place] MD Specimen: Skin, nasal dorsum 12:28 PM CDT DERMATOPATHOLOGY LABORATORY Final Diagnosis Specimen A. SKIN, nasal dorsum: BASAL CELL CARCINOMA, INFILTRATIVE PATTERN (C44.311) 12:28 PM CDT DERMATOPATHOLOGY LABORATORY Clinical History BCC 12:28 PM CDT DERMATOPATHOLOGY LABORATORY Gross Description [...] nests that infiltrate the dermis. 12:28 PM CDT DERMATOPATHOLOGY LABORATORY Disclaimer An external and internal positive and negative controls are appropriate for the histochemical, immunohistochemical and immunofluorescence stain(s) in this case (if any), except where stated explicitly. The performance characteristics of the stain(s) cited in this report were developed and its performance characteristic determined by the Dermatopathology Laboratory at [facility], directed by Dr. Nery Arteaga. These tests need not be, and therefore are not, approved by the [place] Food and Drug Administration. The tests are used for clinical purposes. Billing Codes Specimen Charges Stain Charges 28415 1 12:28 PM CDT DERMATOPATHOLOGY LABORATORY Embedded Images 12:28 PM CDT DERMATOPATHOLOGY LABORATORY Pathology/Cytolog y TISSUE SPECIMEN FROM SKIN / Unknown 10/31/2023 11/01/2023 12:29 PM CDT Christy Moran MD LAB - PATHOLOGY/CYTO LOGY ORDERABLES DERMATOPATHOLOGY LABORATORY [facility] - Department of Dermatology [address], 3rd [address] [phone] documented in this encounter Visit Diagnoses Diagnosis Neoplasm of uncertain behavior of skin documented in this encounter
--- OUTSIDE RECORDS SUMMARY | 2024-06-23 16:45 | XMS_ITS | Referral Summary ---
Author Organization [facility] Address [address] [place] [address] Care Team Providers Care Account Manager [id number] Name Role Phone Vahe Aguilera MD Primary Care Provider [phone] Alia Ramey MD Unavailable Encounters Date Type Department Care Team Description 06/10/2024 12:20 PM CDT - 06/10/2024 11:59 PM CDT Hospital Encounter [facility] [place] [facility] [address] [place], [place] [id number] Other fracture of right femur, initial encounter for closed fracture (HCC); Impending pathologic fracture Discharge Disposition: Discharge to home or self care 06/10/2024 1:10 PM CDT Office Visit [facility] Orthopaedic Surgery [address] [facility] 6th [place] [address] [place] [address] Yosvany Bello MD Other fracture of right femur, initial encounter for closed fracture (HCC) (Primary Dx); Impending pathologic fracture 04/14/2024 10:04 AM HEALTH PSYCHOLOGIST - 04/14/2024 11:59 PM HEALTH PSYCHOLOGIST Hospital Encounter [facility] [place] [id number] [facility] 1st [place] [address] Alia Ramey MD Lumbar radiculopathy Discharge Disposition: Discharge to home or self care 04/10/2024 Telephone [facility] at [place] [address] [facility] 1st [place] [address] Sanjana Welch, PIERRE pt call 04/10/2024 Telephone [facility] at [address] [address] Maxine Johnston RN Pre Arrival 04/04/[address] [address] Tess Mota RN requests call back 03/28/2024 Telephone [facility] at [address] [address] Jesusita Martinez RN medication question from Last 3 Months Allergies No known [...] Comments Blood Pressure 127/78 04/14/2024 11:19 AM HEALTH PSYCHOLOGIST Pulse 69 04/14/2024 11:19 AM HEALTH PSYCHOLOGIST Temperature 36.6 C (97.8 F) 04/14/2024 10:11 AM HEALTH PSYCHOLOGIST Respiratory Rate 18 04/14/2024 11:1 9 AM HEALTH PSYCHOLOGIST Oxygen Saturation 99% 04/14/2024 11: 19 AM HEALTH PSYCHOLOGIST Inhaled Oxygen Concentration - - Weight 63.4 kg (139 lb 11.2 oz) 01/23/2024 5:06 PM CDT Height 157.5 cm (5' 2 ) 01/20/2024 5:48 AM CDT Body Mass Index 25.55 01/20/2024 5:48 AM CDT Plan of Treatment Not on file Goals Goal Patient Goal Type Associated Problems Recent Progress Patient-Stated? Author CCM Chronic Pain Care Plan Chronic Care Management On track(2024 10:13 AM HEALTH PSYCHOLOGIST) No Sanjana Welch, PIERRE Note: Problem: Chronic Pain Goals: 1. Minimize further functional decline 2. Maximize quality of life 3. Control pain Strategies: - Activity/exercise program recommendation - Conservative stepwise pain medicine strategy with multi-disciplinary approach - Recommend healthy lifestyle strategies and compensatory methods as needed [facility] Fall Prevention Care Plan Chronic Care Management On track(2024 10:13 AM HEALTH PSYCHOLOGIST) No Jesusita Martinez, RN Note: Problem: Falls Goals: 1. Maintain strength and balance as able 2. Prevent falls and fractures 3. Maximize safety of living environment Strategies: - Educate on fall prevention and follow-up as needed - Recommend activity/exercise program - Refer to allied health as needed - Recommend healthy lifestyle strategies and compensatory methods as needed Medical Devices Implanted Type Area As400 Administrator Device Identifier Shelf Expiration Date Model / Serial / Lot Synthes Nail 140d 400mm 11mm Intramedullary Femoral Greater Trochanter Right Titanium Niobium Aluminum Adult 8 Hole Cannulated Reconstruction Light Green 5/6.5mm Screw 04.033.170s - S0 - [id number] Implanted:Qty: 1 on 01/20/2024 by Chito Garay MD at [facility] Nail Right: Femur Synthes I 04.033.17 0S / 0 / [employer] Nail 10mm 400mm Fem Greater Trochanter Left T2 Alpha Im Strl 2331-1040s - [id number] Implanted:Qty: 1 on 01/21/2024 by Yosvany Bello MD at [facility] Nail Left: Femur [employer] 01/23/2033 [id number] S / / [id number] Synthes Screw Bone Locking Cannulated Hip Threaded 6.5x85mm Recon 04.046.685s - [id number] Implanted:Qty: 1 on 01/20/2024 by Chito Garay MD at [facility] Screw Right: Femur S[employer] I 04.046.68 5S / / Synthes Screw Bone Locking Cannulated Femoral Proximal Full Thread Light Green 5.0x40mm Titanium 04.045.040 - [id number] Implanted:Qty: 2 on 01/20/2024 by Chito Garay MD at [facility] Screw Right: Femur [employer]s 04.045.04 0 / / Synthes Screw Bone Locking Cannulated Femoral Proximal Full Thread Light Green 5.0x46mm Titanium 04.045.046 - [id number] Implanted:Qty: 1 on 01/20/2024 by Chito Garay MD at [facility] Screw Right: Femur Synthes I 04.045.04 6 / / [employer] 6.5mm 90mm Lag Cannulated Femur Screw Bone Titanium Sterile 7-6090s - [id number] Implanted:Qty: 1 on 01/21/2024 by Yosvany Bello MD at [facility] Screw Left: Femur [employer] [id number] 01/23/2025 5858-0543 S / / [id number] [employer] Screw Bone 5mm 35mm T2 Alpha Lock Strl 2360-3595s - [id number] Implanted:Qty: 1 on 01/21/2024 by Yosvany Bello MD at [facility] Screw Left: Femur [employer] [id number] 08/23/2033 0328-5548 S / / [id number] [employer] Screw Bone 5mm 45mm T2 Alpha Lock Strl 0-1295s - [id number] Implanted:Qty: 1 on 01/21/2024 by Yosvany Bello MD at [facility] Screw Left: Femur [employer] [id number] 10/23/2032 3765-9305 S / / [id number] Explanted Type Area As400 Administrator Device Identifier Shelf Expiration Date Model / Serial / Lot [employer] K-Wire Drill-Tip Recon 23503240s - [id number] Explanted:Qty: 1 on 01/21/2024 at [facility] Left: Femur [employer] [id number] 01/23/2031 3234-1349 S / / [id number] [employer] K-Wire Drill-Tip Recon 3240s - [id number] Explanted:Qty: 1 on 01/21/2024 by Yosvany Bello MD at [facility] Left: Femur [employer] [id number] 01/23/2030 6487-4850 S / / [id number] Procedures Procedure Name Priority Date/Time Associated Diagnosis [...] Read Routine (OP Routine) 04/14/2024 11:16 AM HEALTH PSYCHOLOGIST Lumbar radiculopathy from Last 3 Months Results [...] compatible with atypical stress fracture. Procedure Note Cuco Ruelas, DO - 06/10/2024 EXAMINATION: XR FEMUR LEFT [...] it. Electronically signed by: Cuco Ruelas D.O. Yosvany Bello MD IMG XR PROCEDURES Final [...] esult * Imaging Lumbar/Caudal Epidural Steroid INJ ([id number]) (04/14/2024 11:16 AM HEALTH PSYCHOLOGIST) Narrative [facility] - 04/14/2024 11:27 AM HEALTH PSYCHOLOGIST The images from this study are not interpreted by Radiology. Please refer to the physician's procedure / OR operative note. us Alia Ramey MD IMG PAIN MGMT PROCEDU RES Final Result [facility] from Last 3 Months Insurance MEDICARE [id number] MEDICARE [id number] MEDICARE [id number] Advance Directives For more information, please contact: [phone] * Full Code (Latest Code Status on File) Date Activated Date Inactivated Comments 01/20/2024 12:27 PM 01/24/2024 8:25 PM * Full Code Date Activated Date Inactivated Comments 01/20/2024 12:27 PM 01/20/2024 12:27 PM * Full Code Date Activated Date Inactivated Comments 11/09/2017 2:05 PM 11/10/2017 3:04 AM * Full Code Date Activated Date Inactivated Comments 11/09/2017 2:05 PM 11/09/2017 2:05 PM Care Teams Account Manager B2B Relationship Specialty Start Date End Date Vahe Aguilera MD [address] [place] [address] [place] [id number] PCP - General Internal Medicine 10/02/17 Alia Ramey MD [address] [facility] [place] [address] Consulting Physician Pain Management 05/09/22
--- OUTSIDE RECORDS SUMMARY | 2024-06-23 16:45 | XMS_ITS | Encounter Summary ---
Author Organization [facility] Address [address] [place] [address] Care Team Providers Care Team Psychologist Name Role Phone Unavailable Primary Care Provider Unavailabl e Encounter Details Date Type Department Care Team (Late st Contact Info) Description 08/15/2023 Lab Requisition [facility] - DermPath Lab [address] [place] [id number] Christy Moran MD [address] [place] [address] Neoplasm of uncertain behavior of skin [...] AM CDT) Case Report Dermatopathology Report Case: [id number] Authorizing Provider: Christy Moran MD Collected: 08/15/2023 12:00 AM Ordering Location: [facility] - Received: 08/16/2023 01:53 PM DermPath Lab Pathologist: Bernadette Andrews MD Specimen: Skin, right inferior medial forehead 12:46 PM CDT DERMATOPATHOLOGY LABORATORY Final Diagnosis Specimen A. SKIN, right inferior medial forehead: BASAL CELL CARCINOMA, INFILTRATIVE PATTERN (C44.319) 12:46 PM CDT DERMATOPATHOLOGY LABORATORY Clinical History BCC 4 12:46 PM CDT DERMATOPATHOLOGY LABORATORY Gross Description Specimen A: Received is one formalin filled container labeled with the patient's name and designated right inferior medial forehead. The specimen consists of a shave biopsy measuring 7x4x2 mm. Jar 0. 12:46 PM CDT DERMATOPATHOLOGY LABORATORY Microscopic Description Specimen A. SKIN, right inferior medial forehead: Within the dermis there are nodular aggregates of basaloid cells associated with fibromyxoid stroma and epithelial-stromal clefts. At the advancing margin of the neoplasm, there are smaller angulated nests that infiltrate the dermis. 12:46 PM CDT DERMATOPATHOLOGY LABORATORY Disclaimer An external and internal positive and negative controls are appropriate for the histochemical, immunohistochemical and immunofluorescence stain(s) in this case (if any), except where stated explicitly. The performance characteristics of the stain(s) cited in this report were developed and its performance characteristic determined by the Dermatopathology Laboratory at [facility], directed by Dr. Nery Arteaga. These tests need not be, and therefore are not, approved by the [place] Food and Drug Administration. The tests are used for clinical purposes. Billing Codes Specimen Charges Stain Charges 94172 1 12:46 PM CDT DERMATOPATHOLOGY LABORATORY Embedded Images 12:46 PM CDT DERMATOPATHOLOGY LABORATORY Pathology/Cytolog y TISSUE SPECIMEN FROM SKIN / Unknown 08/15/2023 08/16/2023 1:53 PM CDT Christy Moran MD LAB - PATHOLOGY/CYTO LOGY ORDERABLES DERMATOPATHOLOGY LABORATORY [facility] - Department of Dermatology [address], [address] Floor [address] [phone] documented in this encounter Visit Diagnoses Diagnosis Neoplasm of uncertain behavior of skin documented in this encounter
--- OUTSIDE RECORDS SUMMARY | 2024-06-23 16:46 | XMS_ITS | Clinical Summary ---
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 Gender Identity Not on file Sexual Orientation [...] 2023 01/25/2023, 09/18/2022, 01/26/2022, Additional history exists Zoster Vaccines Completed 07/07/2018, 03/28, 12/06/2012 RSV Immunization or 60+ Years Completed 02/01/2023 Meningococcal B Vaccine Aged Out No l onger eligible based on patient's age to complete this topic Meningococcal Vaccine Aged Out No roger laurie eligible based on patient's age to complete this topic RSV Immunizations Under 20 Months Aged Out No longer eligible based on patient's age to complete this topic Insurance [facility] INSURANCE MEDICARE Care Teams Curriculum And Assessment Director Relationship Specialty Start Date End Date Osorio Billy MD [id number] [place], [place] [phone] PCP - General ORTHOPAEDIC SURGERY 02/20/23
--- OUTSIDE RECORDS SUMMARY | 2024-06-23 16:46 | XMS_ITS | Patient Health Record ---
Author Organization [facility] Address [address] [place] [address] Care Team Providers Care Java Solutions Architect Name Role Phone Ale MATA, Vahe Primary Care Provider UnavailLawson James Unavailable [phone] Migration, Provider Unavailable Unavailable Allergies No Known [...] Risk Notes Problem Major depression, single episode (43640930) Major depressive disorder, single episode, unspecified (F32.9) 06/08/19 24 Active confirmed Problem Generalized anxiety disorder (44514878) Generalized anxiety disorder (F41.1) 06/08/19 24 Active confirmed Problem Hyperlipidaemia (85979964) HLD (hyperlipidemia) (E78.5) 01/20/20 24 Active confirmed Problem Lumbosacral spondylosis without myelopathy (11113879) Spondylosis of lumbar region without myelopathy or radiculopathy (M47.816) 05/09/19 23 Active confirmed Vital Signs Heart Rate 80 /min 04/09/2024 Height-cm 156.21 cm 04/09/2024 Blood pressure diastolic 78 mm Hg 04/09/2024 Weight-kg 54.7 kg 04/09/2024 Height 61.50 in 04/09/2024 Blood pressure systolic 116 mm Hg 04/09/2024 Weight 120.6 lbs 04/09/2024 BMI 22.42 kg/m2 04/09/2024 Encounters Encounter Location Date Provider Diagnosis [facility] [address] [address] 09/12/2023 Lawson Maisha Major depressive disorder, single episode, unspecified F32.9 and Generalized anxiety disorder F41.[address] [address] 04/09/2024 Lawson Maisha Major depressive disorder, single episode, unspecified F32.9 ; HLD (hyperlipidemia) E78.5 ; Spondylosis of lumbar region without myelopathy or radiculopathy M47.816 and Generalized anxiety disorder F41.[address] [address] 08/11/2023 Provider Migration [facility] [place] [address] [facility] [address] [address] 08/12/2023 Provider Migration [address] [address] 03/04/2024 Lawson Ferrera Assessments Encounter Date Diagnosis (ICD Code) Assessment [...] right side. Patient spent a week at [facility], followed by a week at inpatient therapy in [facility] . - Plan: Continue monitoring progress and [...] sending a new 10 mg prescription to [facility]. Physical Therapy - Assessment: Patient has completed physical therapy sessions at [facility] for about 2-3 weeks and is no [...] right side. Patient spent a week at [facility], followed by a week at inpatient therapy in [facility] . - Plan: Continue monitoring progress and [...] sending a new 10 mg prescription to [facility]. Physical Therapy - Assessment: Patient has completed physical therapy sessions at [facility] for about 2-3 weeks and is no [...] right side. Patient spent a week at [facility], followed by a week at inpatient therapy in [facility] . - Plan: Continue monitoring progress and [...] sending a new 10 mg prescription to [facility] in [place]. Physical Therapy - Assessment: Patient has completed physical therapy sessions at [facility] for about 2-3 weeks and is no [...] right side. Patient spent a week at [facility], followed by a week at inpatient therapy in [facility] . - Plan: Continue monitoring progress and [...] sending a new 10 mg prescription to [facility] in [place]. Physical Therapy - Assessment: Patient has completed physical therapy sessions at [facility] for about 2-3 weeks and is no longer attending. - Plan: No further intervention needed at this time. Encourage the patient to continue practicing exercises and mobility activities learned during physical therapy sessions. Plan Of Treatment Next Appt Details Provider Name:Lawson Davis Maisha , 07/02/2024 11:00:00 AM, [address], [facility] [address], [place], [address], Insurance Providers Payer Name Payer Address Payer Phone Subscriber Number Group Number Insured Name Patient Relationship to Insured Coverage Start Date Coverage End Date [place] [address] [place] [phone] [id number] THOMAS PONCE Self - patient is the insured [facility] Insurance Medicare Supplement [address] [address] [place] [address] [id number] THOMAS PONCE Self - patient is the insured Medical (General) History Medical History History ICD Code Problems: Generalized anxiety disorder Major depressive disorder Obsessive-compulsive disorder Somatoform disorder ,
--- OUTSIDE RECORDS SUMMARY | 2024-06-23 16:46 | XMS_ITS | Clinical Summary ---
Author Organization [facility] Address [address] [place] [id number] Care Team Providers Care Commodity Manager Name Role Phone Unavailable Primary Care Provider Unavailabl e Source Comments [facility],non-owned Affiliates and Associated Physician Practices is amultiple site organization consisting of ambulatory clinics and hospital sitesin [place], [place], [place] and [place]. This disclosure is being madepursuant to the Care Everywhere program and may not contain all information available regarding this patient. Last updated 17.[facility] Social History Tobacco Use Types Packs/Day Years [...] LIPID TESTING 1955 MAMMOGRAM 1955 MEDICARE AWV 12 MONTHS 1955 HEPATITIS C SCREENING 04/17/1973 [...] to complete this topic MENINGOCOCCAL (Group B) VACC INE SHARED DECISION-MAKING Aged Out No longer eligibl e based on patient's age to complete this topic MENINGOCOCCAL GROUPS A/C/Y/W VACCINE Aged Out No longer eligible b ased on patient's age to complete this topic
--- OUTSIDE RECORDS SUMMARY | 2024-06-23 16:46 | XMS_ITS ---
Author Organization [facility] Address [address] [place] [address] Care Team Providers Care Research Investigator Name Role Phone Ale MATA, Vahe Primary Care Provider Lili ly Bryan Lipscombjay Unavailable [phone] Allergies No Known Allergies REASON FOR VISIT [...] Status W/U Status Risk Notes Problem Hyperlipidaemia (16910106) HLD (hyperlipidemia) (E78.5) 01/20/20 24 Active confirmed Problem Lumbosacral spondylosis without myelopathy (19894970) Spondylosis of lumbar region without myelopathy or radiculopathy (M47.816) 05/09/19 23 Active confirmed Vital Signs Blood pressure systolic 116 mm Hg 04/09/19 25 Blood pressure diastolic 78 mm Hg 025 Heart Rate 80 /min 04/09/2024 Weight 120.6 lbs 04/09/2024 Weight-kg 54.7 kg 04/09/2024 Height 61.50 in 04/09/2024 Height-cm 156.21 cm 04/09/2024 BMI 22.42 kg/m2 04/09/2024 Encounters Encounter Location Date Provider Diagnosis [facility], [facility] [address] [place] [address] 04/09/2024 Lawson Lipscomb Major depressive disorder, single [...] right side. Patient spent a week at [facility], followed by a week at inpatient therapy in [facility] . - Plan: Continue monitoring [...] sending a new 10 mg prescription to [facility]. Physical Therapy - Assessment: Patient has completed physical therapy sessions at [facility] for about 2-3 weeks and is [...] right side. Patient spent a week at [facility], followed by a week at inpatient therapy in [facility] . - Plan: Continue monitoring [...] sending a new 10 mg prescription to [facility]. Physical Therapy - Assessment: Patient has completed physical therapy sessions at [facility] for about 2-3 weeks and is [...] right side. Patient spent a week at [facility], followed by a week at inpatient therapy in [facility] . - Plan: Continue monitoring [...] sending a new 10 mg prescription to [facility] in [place]. Physical Therapy - Assessment: Patient has completed physical therapy sessions at [facility] for about 2-3 weeks and is [...] right side. Patient spent a week at [facility], followed by a week at inpatient therapy in [facility] . - Plan: Continue monitoring [...] sending a new 10 mg prescription to [facility] in [place]. Physical Therapy - Assessment: Patient has completed physical therapy sessions at [facility] for about 2-3 weeks and is [...] Provider Name:Lawson Lipscomb , 07/02/2024 11:00:00 AM, [address] [facility] [address], [address], Progress Notes * THOMAS PONCE MDOB: [birth year] (68 yo F)Acc No.[id number]:04/09/2024 Patient: Beatriz THOMAS AQUINO Provider: Esvin LIPSCOMB MD :1955 A ge:68 Y S ex:Female Date:04/09/2024 [facility] Pcp:Vahe Aguilera MD Subjective: * Chief Complaints: * F ollow upPhq less than 5MIPS BP NORMAL * HPI: D epression Screening: The note is transcribed using speech recognition [...] left femur, leading to preemptive surgery on January 20 to address an impending pathological fracture. Post-Operative Care: The patient completed inpatient physical therapy at [facility] for one week, followed by a week at [facility]. Subsequently, she attended outpatient physical therapy at [place] for approximately 2-3 weeks. Current Status: The [...] Systems: - Musculoskeletal: Right leg limp, improving. GIDEON-7 (2018 Edition) F eeling nervous, anxious, or on edge?Not at all, N ot being able to stop or control worrying N ot at all, W orrying too much about different things N ot at all, T rouble relaxing N ot at all, B eing so restless that it is hard to sit still N ot at all, B ecoming easily annoyed or irritable N ot at all, F eeling afraid as if something awful might happen N ot at all, T otal GIDEON-7 Score 0 , I nterpretation of Total ( 0 to 4) No Anxiety. C [place]-Suicide Severity Rating Scale: Suicide Risk (CSRS-screener) i n the past one month Have you wished you were or wished you could go to sleep and not wake up? N o, i n the past one month Have you actually had any thoughts of killing yourself? N o. D epression screening: PHQ-9 L ittle interest or pleasure in doing things N ot at all, F eeling down, depressed, or hopeless N ot at all, T rouble falling or staying asleep, or sleeping too much N ot at all, F eeling tired or having little energy N ot at all, P oor appetite or overeating N ot at all, F eeling bad about yourself or that you are a failure, or have let yourself or your family down N ot at all, T rouble concentrating on things, such as reading the newspaper or watching television N ot at all, M oving or speaking so slowly that other people could have noticed; or the opposite, being so fidgety or restless that you have been moving around a lot more than usual N ot at all, T houghts that you would be better off or of hurting yourself in some way N ot at all, T otal Score 0 . I ntervention D epression Screening Findings N egative, S uicide Risk Assessment Performed . * ROS: P erformance Met: N ormal blood pressure reading documented, follow-up not required ( G8783). * Medical History: * Surgical History: * Hospitalization/Major Diagno stic Procedure: * Social History: T obacco Use: T obacco Control (Standard) T obacco use: N onsmoker. M igrated Social History: M igrated Social History: Alcohol Intake: None 03/24/2022,Tobacco Years: Never smoker 03/24/2022. M iscellaneous: A dvance Care Planning A re you your own decision-maker Y es, D o you have Power of Cosmetics Machine Operator for Health or Medical? N o. * Medications: T akingAtorvastatin Calcium 40 MG Tablet TAKE 1 TABLET [...] reviewed and reconciled with the patient * Allergies: N .K.D.A.no[Allergies Verified] Objective: * Vitals: B P:116/78mm Hg, HR:80/min, Wt:120.6lbs, Wt-k.7 kg, Ht: 61.50 in, Ht-cm: 156.21 cm, BMI:22.42Index, Body Surface Area: 1.54. * Examination: G eneral Examination: M ental Status Examination: Patient reported improvement in mobility [...] . Patient completed inpatient physical therapy at [facility] for a week, followed by a week at [facility]. Outpatient physical therapy at [facility] for 2-3 weeks. Assessment: * Assessment: 1. M ajor depressive disorder, single episode, unspecified - F32.9 (Primary) 2 . H LD (hyperlipidemia) - E78.5 3 . 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 G eneralized anxiety disorder - F41.1? Osteoporosis and Femur Fract ures - Assessment: [...] right side. Patient spent a week at [facility], followed by a week at inpatient therapy in [facility]. - Plan: Continue monitoring progress and encourage [...] sending a new 10 mg prescription to [facility] in [place]. Physical Therapy - Assessment: Patient has completed physical therapy sessions at [facility] for about 2-3 weeks and is no longer attending. - Plan: No further intervention needed at this time. Encourage the patient to continue practicing exercises and mobility activities learned during physical therapy sessions. Plan: * Treatment: * Procedure Codes: 9 6127 BEHAV ASSMT W/SCORE & DOCD/STAND [id number] NORMAL BP READING DOC F/U NOT RQR * Follow Up: 3 Months * Billing Information: * Visit Code: 26622 OFFICE OUTPATIENT VISIT 25 MINUTES DETAILED HISTORY AND EXAM/MODERATE MEDICAL DECISION MAKING. * Procedure Codes: 74149 BEHAV ASSMT W/SCORE & DOCD/STAND INSTRUMENT. G8783 NORMAL BP READING DOC F/U NOT RQR. * RTMENT PLANNER Sign off status: Completed true * Provider: Esvin LIPSCOMB MD Date: 0 04/09/2024 Generated for Celina sherman/Carlton/Sergeitting on: 0 06/23/2024 04:45 PM CDT History and Physical Notes * HPI (History [...] Total: (0 to 4) No Anx iety Harvey-Suicide Severity Rating Scale Suicide Risk (CSRS-screener) in [...] . Patient completed inpatient physical therapy at [facility] for a week, followed by a week at [facility]. Outpatient physical therapy at [facility] for 2-3 weeks.
--- OUTSIDE RECORDS SUMMARY | 2024-06-23 16:46 | XMS_ITS ---
Author Organization [facility] Address [address] [place] [address] Care Team Providers Care Electronic Service Technician Name Role Phone Ale MATA, Vahe Primary Care Provider Lawson Machado Unavailable [phone] Allergies No Known Allergies REASON FOR VISIT [...] Risk Notes Problem Major depression, single episode (36399310) Major depressive disorder, single episode, unspecified (F32.9) 4 Active confirmed Problem Generalized anxiety disorder (41084792) Generalized anxiety disorder (F41.1) 4 Active confirmed Vital Signs Blood pressure systolic 123 mm Hg 09/12/19 24 Blood pressure diastolic 78 mm Hg 024 Heart Rate 70 /min 09/12/2023 Weight 121 lbs 09/12/2023 Weight-kg 54.88 kg 09/12/2023 Height 61.50 in 09/12/2023 Height-cm 156.21 cm 09/12/2023 BMI 22.49 kg/m2 09/12/2023 121 Encounters Encounter Location Date Provider Diagnosis [facility] [address] [place] [address] 09/12/2023 Lawson Lipscomb Major depressive disorder, single episode, [...] 6 Months, Reason: anxiety follow up Provider Name:Lawson Lipscomb , 07/02/2024 11:00:00 AM, [address], [address], [place], [address], Progress Notes * THOMAS PONCE MDOB: [birth year] (68 yo F)Acc No.[id number]:09/12/2023 Patient: THOMAS VU Provider: Esvin LIPSCOMB MD :1955 A ge:68 Y S ex:Female Date:09/12/2023 Address:[address], [id number] Subjective: * Chief Complaints: * F ollow up * HPI: D epression screening: PHQ-9 L ittle interest or pleasure in doing things N ot at all, F eeling down, depressed, or hopeless N ot at all, T rouble falling or staying asleep, or sleeping too much N ot at all, F eeling tired or having little energy S everal days, P oor appetite or overeating N ot [...] N ot at all, T otal Score 1 ,?Interpretation M inimal Depression. Mental Health Status The patient reports significant [...] and they are managing well without it. D epression Screening: GIDEON-7 (2018 Edition) F eeling nervous, anxious, or on edge?Several days, N ot being able to stop or control worrying S everal days, W orrying too much about different things S everal days, T rouble relaxing N ot at all, B eing so restless that it is hard to sit still N ot at all, B ecoming easily annoyed or irritable?Not at all, F eeling afraid as if something awful might happen N ot at all, T otal GIDEON-7 Score 3 , I f you checked any problems, how difficult have they made it for you to do your work, take care of things at home, or get along with other people? N ot difficult at all,?Interpretation of Total ( 0 to 4) No Anxiety. C [place]-Suicide Severity Rating Scale: Suicide Risk (CSRS-screener) i n the past one month Have you wished you were or wished you could go to sleep and not wake up? N o, i n the past one month Have you actually had any thoughts of killing yourself? N o, H ave you ever done anything, started to do anything, or prepared to do anything to end your life? N o. * Medical History: * Surgical History: * Hospitalization/Major Diagno stic Procedure: N o Hospitalization History. * Family History: M other: Malignant tumor of breast . B rother: Hypertensive disorder . S ister: Malignant tumor of breast . * Social History: T obacco Use: T obacco Control (Standard) T obacco use: N onsmoker. M igrated Social History: M igrated Social History: Alcohol Intake: None 03/24/2022,Tobacco Years: Never smoker 03/24/2022. * Medications: T akingAtorvastatin Calcium 40 MG [...] , Notes to Pharmacist: *Pick strength-form from [employer] for eRX*Escitalopram Oxalate 10 MG Tablet Oral [...] , Notes to Pharmacist: *Pick strength-form from [employer] for eRX*Discontinued Escitalopram Oxalate 10 MG Tablet Oral Discontinued Restasis 0.05 % Emulsion Ophthalmic Discontinued Alendronate Sodium 70 MG Tablet Oral Discontinued ARIPiprazole 2 MG Tablet Oral Discontinued LORazepam 0.5 MG Tablet Oral Discontinued Escitalopram Oxalate 20 MG Tablet Oral * Allergies: N .K.D.A.no[Allergies Verified] Objective: * Vitals: B P:sittin/78mm Hg, HR:70/min, Wt:121lbs, Wt-k.88 kg, Ht: 61.50 in, Ht- cm: 156.21 cm, BMI:22.49Index, Body Surface Area: 1.54. 121. * Examination: P sychiatry: M ental Status Examination: Patient reports no current symptoms of depression or anxiety. PHQ-9 score documented as 1, indicating minimal depression. GIDEON (Generalized Anxiety Disorder) score not fully documented, but patient denies major anxiety. Patient denies any thoughts of self-harm or suicidal ideation. Assessment: * Assessment: 1. M jaky depressive disorder, single episode, unspecified - F32.9 (Primary) 2 . G eneralized anxiety disorder - F41.1 Depression and Anxiety - Plan: - Continue [...] the provider. Plan: * Treatment: * Procedure Codes: G 2211 VISIT COMPLEXITY INHERENT TO ONGOING CARE RELATED TO A PATIENT'S SINGLE, SERIOUS CONDITION OR A COMPLEX CONDITION * Preventive Medicine: Counseling: B P Management: P RE-HYPERTENSIVE FOLLOW-UP PLAN: F ollow-up 4-6 months ____, R EFERRAL TO ALTERNATIVE / PRIMARY CARE PROVIDER: R eferral to general physician . * Follow Up: 6 Months (Reason: anxiety follow up) * Billing Information: * Visit Code: 40998 OFFICE OUTPATIENT VISIT 25 MINUTES DETAILED HISTORY AND EXAM/MODERATE MEDICAL DECISION MAKING. * Procedure Codes: G2211 VISIT COMPLEXITY INHERENT TO ONGOING CARE RELATED TO A PATIENT'S SINGLE, SERIOUS CONDITION OR A COMPLEX CONDITION. * Sign off status: Completed true * Provider: Esvin LIPSCOMB MD Date: 0 09/12/[address]D lane/Carlton/Catrina on: 0 06/23/2024 04:46 PM CDT History and Physical Notes * [...] Total: (0 to 4) No Anx iety [place]-Suicide Severity Rating Scale Suicide Risk (CSRS-screener) in the past one month Have you wished you were or wished you could go to sleep and not wake up?: No in the past one month Have y ou actually had any thoughts of killing yourself?: No Have you ever done anything, started to do [...]
--- OUTSIDE RECORDS SUMMARY | 2024-06-23 16:46 | XMS_ITS | Continuity of Care Document ---
Author Organization [facility] Address [address] [place] [address] Phone Care Team Providers Care Diesel Trailer Mechanic Name Role Phone Cole OD, Rosendo Unavailable Unavailable Procedures Procedure Date Eye Exam & Treatment Refraction Eye Exam & Treatment Refraction Eye Exam & Treatment Eye Exam & Treatment Advance Directives Directive Yes / No Effective Date File Name No Information Encounters Encounter Description Practice Location Reason(s) For Visit Diagnoses Date Provider Providers Copied on Encounter [facility], [address] [place] [address] [address], [place], [place], [id number], tel:[phone] [facility] No Information Nov-0 2-201 0 Cole OD Rosendo. [address], [place], [place], [facility], . tel:[phone] [facility], [address] [place] [address] [address], [place], [place], [id number], tel:[phone] [facility] No Information 0 3-200 9 Chantelle Zuniga [address], [place], [place], [facility], . tel:[phone] [facility], [address] [place] [address] [address], [place], [place], [id number], tel:[phone] [facility] No Information Apr- 6-200 8 Chantelle Zuniga [address], [place], [address], [place]. tel:[phone] [facility], [address], [place], [place], [id number], [place] tel:[phone] [facility] No Information 0-200 7 Chantelle Stratton. [address] , [address], [place], [address], [place]. tel:[phone] Family History Family Member Type Diagnosis Age At Onset No Information Payers Payer name Insurance type Covered green party ID Ana wesley(s) [facility] CI [id number] Social History Type Description Quantity Date Captured [...]
--- OUTSIDE RECORDS SUMMARY | 2024-06-23 16:46 | XMS_ITS ---
Author Organization [facility] Address [address] [facility] [address] [place] [address] Care Team Providers Care Materials Coordinator Name Role Phone Ale MATA, Vahe Primary Care Provider Lawson Machado Unavailable [phone] REASON FOR VISIT Appointment Social History Sex Assigned At : Social History Observation Description Sex Assigned At Female Encounters Encounter Location Date Provider Diagnosis [facility] Playdate App [facility] [address] [facility] [address] [place] [address] 03/04/2024 Lawson Ferrera Plan Of Treatment Next Appt Details Provider Name:Lawson Ferrera , 07/02/2024 11:00:00 AM, [address], [facility] [address], [place], [address], Progress Notes * THOMAS PONCE MDOB: [birth year] (68 yo F)Acc No.[id number]:03/04/2024 Patient: THOMAS VU :1955 A ge:68 Y S ex:Female Address:[address] [place], [address] * true * Date: Generated for Printi ng/Faxing/eTransmitting on: 0 06/23/2024 04:45 PM CDT
== END 2024-06-23 15:12 | disposition home or self-care (01) ==
PROVIDERS: PCP Internal Medicine; Visit Provider Internal Medicine
DX: M19.032 Primary osteoarthritis, left wrist (principal)
CPT/HCPCS: 73080; 73090

== ENCOUNTER 2024-07-09 10:00 | Outpatient (CLI) | payer MEDICARE, SELFPAY ==
--- NOTE | ~2024-07-09 | MM_ITS ---
EXAMINATION: MM screening marty BI w bebeto HISTORY: Screening TECHNIQUE: Craniocaudal and mediolateral oblique 3-D tomosynthesis images were obtained and synthetic 2-D images were generated. CAD analysis was submitted and interpreted. COMPARISON: Comparison to multiple prior studies sequentially, with oldest reviewed study dated 09/2019. BREAST PARENCHYMAL COMPOSITION: Not dense: There are scattered areas of fibroglandular density. FINDINGS: There is no evidence of suspicious mass, calcification, or architectural distortion to sugg est malignancy in either breast. There has been no suspicious interval change. IMPRESSION: 1. No mammographic evidence of malignancy. 2. Recommend routine screening mammography in one year. BI-RADS Category 1: Negative Reviewed, dictated and finalized at location B.
--- OUTSIDE RECORDS SUMMARY | 2024-07-09 10:58 | XMS_ITS | Clinical Summary ---
Author Organization [facility] Address [address] [place] [address] Care Team Providers Care Methods Examiner Name Role Phone Vahe Aguilera MD Primary Care Provider [phone] Alia Ramey MD Unavailable Allergies No known [...] Description 06/10/2024 1:10 PM CDT Office Visit [facility] [address]th [place] [address] [place] [address] Yosvany Bello MD Other fracture of right femur, initial encounter for closed fracture (HCC) (Primary Dx); Impending pathologic fracture 06/10/2024 12:20 PM CDT - 06/10/2024 11:59 PM CDT Hospital Encounter [facility] [address] [place] [address] Other fracture of right femur, initial encounter for closed fracture (HCC); Impending pathologic fracture Discharge Disposition: Discharge to home or self care 04/14/2024 10:04 AM SDC TEACHER - 04/14/2024 11:59 PM SDC TEACHER Hospital Encounter [facility] [address] [address] Alia Ramey MD Lumbar radiculopathy Discharge Disposition: Discharge to home or self care 04/10/2024 Telephone [facility] [address] [address] Sanjana Welch, PIERRE pt call 04/10/[address] [address] Maxine Johnston RN Pre Arrival from Last 3 Months Surgical History Surgery [...] Comments Blood Pressure 127/78 04/14/2024 11:19 AM SDC TEACHER Pulse 69 04/14/2024 11:19 AM SDC TEACHER Temperature 36.6 C (97.8 F) 04/14/2024 10:11 AM SDC TEACHER Respiratory Rate 18 04/14/2024 11:1 9 AM SDC TEACHER Oxygen Saturation 99% 04/14/2024 11: 19 AM SDC TEACHER Inhaled Oxygen Concentration - - Weight 63.4 [...] Type Associated Problems Recent Progress Patient-Stated? Author [facility] Chronic Pain Care Plan Chronic Care Management On track(2024 10:13 AM SDC TEACHER) Sanjana Russ, RN Note: Problem: Chronic Pain Goals: 1. Minimize further functional decline 2. Maximize quality of life 3. Control pain Strategies: - Activity/exercise program recommendation - Conservative stepwise pain medicine strategy with multi-disciplinary approach - Recommend healthy lifestyle strategies and compensatory methods as needed [facility] Fall Prevention Care Plan Chronic Care Management On track(2024 10:13 AM SDC TEACHER) Jesusita Shannon, RN Note: Problem: Falls Goals: 1. Maintain strength and balance as able 2. Prevent falls and fractures 3. Maximize safety of living environment Strategies: - Educate on fall prevention and follow-up as needed - Recommend activity/exercise program - Refer to allied health as needed - Recommend healthy lifestyle strategies and compensatory methods as needed Medical Devices Implanted Type Area Windows 7 Deployment Lead Device Identifier Shelf Expiration Date Model / Serial / Lot Synthes Nail 140d 400mm 11mm Intramedullary Femoral Greater Trochanter Right Titanium Niobium Aluminum Adult 8 Hole Cannulated Reconstruction Light Green 5/6.5mm Screw 04.033.170s - S0 - [id number] Implanted:Qty: 1 on 01/20/2024 by Chito Garay MD at [facility] Nail Right: Femur Synthes I 04.033.17 0S / 0 / [employer] Nail 10mm 400mm Fem Greater Trochanter Left T2 Alpha Im Strl 2331-1040s - [id number] Implanted:Qty: 1 on 01/21/2024 by Yosvany Bello MD at [facility] Nail Left: Femur [employer] 01/23/2033 9151-7851 S / / [id number] Synthes Screw Bone Locking Cannulated Hip Threaded 6.5x85mm Recon 04.046.685s - [id number] Implanted:Qty: 1 on 01/20/2024 by Chito Garay MD at [facility] Screw Right: Femur Synthes I 04.046.68 5S / / Synthes Screw Bone Locking Cannulated Femoral Proximal Full Thread Light Green 5.0x40mm Titanium 04.045.040 - [id number] Implanted:Qty: 2 on 01/20/2024 by Chito Garay MD at [facility] Screw Right: Femur Synthes 04.045.04 0 / / Synthes Screw Bone Locking Cannulated Femoral Proximal Full Thread Light Green 5.0x46mm Titanium 04.045.046 - [id number] Implanted:Qty: 1 on 01/20/2024 by Chito Garay MD at [facility] Screw Right: Femur Synthes I 04.045.04 6 / / [employer] 6.5mm 90mm Lag Cannulated Femur Screw Bone Titanium Sterile 1897-6090s - [id number] Implanted:Qty: 1 on 01/21/2024 by Yosvany Bello MD at [facility] Screw Left: Femur [employer] [id number] 01/23/2025 1466-8860 S / / [id number] [employer] Screw Bone 5mm 35mm T2 Alpha Lock Strl 2360-5035s - [id number] Implanted:Qty: 1 on 01/21/2024 by Yosvany Bello MD at [facility] Screw Left: Femur [employer] [id number] 08/23/2033 1780-2102 S / / [id number] [employer] Screw Bone 5mm 45mm T2 Alpha Lock Strl 2360-5045s - [id number] Implanted:Qty: 1 on 01/21/2024 by Yosvany Bello MD at [facility] Screw Left: Femur [employer] [id number] 10/23/2032 6708-4356 S / / [id number] Explanted Type Area Windows 7 Deployment Lead Device Identifier Shelf Expiration Date Model / Serial / Lot [employer] K-Wire Drill-Tip Recon 23513240s - [id number] Explanted:Qty: 1 on 01/21/2024 at [facility] Left: Femur [employer] [id number] 01/23/2031 2942-2942 S / / [id number] [employer] K-Wire Drill-Tip Recon 23513240s - [id number] Explanted:Qty: 1 on 01/21/2024 by Yosvany Bello MD at [facility] Left: Femur [employer] [id number] 01/23/2030 6242-7422 S / / [id number] Procedures Procedure Name Priority Date/Time Associated Diagnosis [...] Read Routine (OP Routine) 04/14/2024 11:16 AM SDC TEACHER Lumbar radiculopathy from Last 3 Months Results [...] esult * Imaging Lumbar/Caudal Epidural Steroid INJ (59129) (04/14/2024 11:16 AM SDC TEACHER) Narrative [facility] - 04/14/2024 11:27 AM SDC TEACHER The images from this study are not interpreted by Radiology. Please refer to the physician's procedure / OR operative note. us Alia Ramey MD IMG PAIN MGMT PROCEDU RES Final Result [facility] from Last 3 Months Insurance MEDICARE [employer] MEDICARE [employer] MEDICARE [employer] Advance Directives For more information, please contact: [phone] * Full Code (Latest Code Status on File) Date Activated Date Inactivated Comments 01/20/2024 12:27 PM 01/24/2024 8:25 PM * Full Code Date Activated Date Inactivated Comments 01/20/2024 12:27 PM 01/20/2024 12:27 PM * Full Code Date Activated Date Inactivated Comments 11/09/2017 2:05 PM 11/10/2017 3:04 AM * Full Code Date Activated Date Inactivated Comments 11/09/2017 2:05 PM 11/09/2017 2:05 PM Care Teams Methods Examiner Relationship Specialty Start Date End Date Vahe Aguilera MD [address] [place] [address] PCP - General Internal Medicine 10/02/17 Alia Ramey MD [address] [facility] [place] [address] Consulting Physician Pain Management 05/09/22
--- OUTSIDE RECORDS SUMMARY | 2024-07-09 10:58 | XMS_ITS | Encounter Summary ---
Author Organization [facility] Address [address] [place] [address] Care Team Providers Care Irrigation Supervisor Name Role Phone Unavailable Primary Care Provider Unavailabl e Encounter Details Date Type Department Care Team (Late st Contact Info) Description 08/15/2023 Lab Requisition [facility] - DermPath Lab [address] [place] [address] Christy Moran MD [address] [address] Neoplasm of uncertain behavior of skin Social History Tobacco Use Types Packs/Day Years Used Date Smoking Tobacco: Never Assessed Comments Unknown Sex and Gender Information Value Date Recorded Sex Assigned at Not on file Legal Sex Female 10:15 AM CDT Gender Identity Not on file Sexual Orientation Not on file documented as of this encounter Plan of Treatment Not on file documented as of this encounter Procedures Procedure Name Priority Date/Time Associated Diagnosis Comments DERMATOPATHOLOGY Routine 08/15/2023 12:0 0 AM CDT Neoplasm of uncertain behavior of skin documented in this encounter Results * DERMATOPATHOLOGY (08/15/2023 12:00 AM CDT) Case Report Dermatopathology Report Case: [id number] Authorizing Provider: Christy Morna MD Collected: 08/15/2023 12:00 AM Ordering Location: [facility] Physician [facility] - Received: 08/16/2023 01:53 PM DermPath Lab Pathologist: Bernadette Andrews MD Specimen: Skin, right inferior medial forehead 12:46 PM CDT DERMATOPATHOLOGY LABORATORY Final Diagnosis Specimen A. SKIN, right inferior medial forehead: BASAL CELL CARCINOMA, INFILTRATIVE PATTERN (C44.319) 12:46 PM CDT DERMATOPATHOLOGY LABORATORY Clinical History BCC 12:46 PM CDT DERMATOPATHOLOGY LABORATORY Gross Description [...] characteristic determined by the Dermatopathology Laboratory at [facility], directed by Dr. Nery Arteaga. These tests need not be, and therefore are not, approved by the [place] Food and Drug Administration. The tests are used for clinical purposes. Billing Codes Specimen Charges Stain Charges 37502 1 12:46 PM CDT DERMATOPATHOLOGY LABORATORY Embedded Images 12:46 PM CDT DERMATOPATHOLOGY LABORATORY Pathology/Cytolog y TISSUE SPECIMEN FROM SKIN / Unknown 08/15/2023 08/16/2023 1:53 PM CDT us Christy Moran MD LAB - PATHOLOGY/CYTOLOGY ORDERAB LES Final Result DERMATOPATHOLOGY LABORATORY [facility] - Department of Dermatology [address] [phone] documented in this encounter Visit Diagnoses Diagnosis Neoplasm of uncertain behavior of skin documented in this encounter
--- OUTSIDE RECORDS SUMMARY | 2024-07-09 10:58 | XMS_ITS | Clinical Summary ---
Author Organization [facility] Address [facility] [place] [address] Care Team Providers Care Wheel Aligner Name Role Phone Osorio Billy MD Primary Care Provider Social History Tobacco Use Types Packs/Day Years Used Date Smoking Tobacco: Never Assessed Comments Unknown Sex and Gender Information Value Date Recorded Sex Assigned at Not on file Legal Sex Female 9:45 AM SHOP TECHNICIAN Gender Identity Not on file Sexual Orientation Not on file Plan of Treatment Health Maintenance Due Date Last Done Comments Colorectal Cancer Screening Colonoscopy (10 Years) 1955 Hepatitis C 1973 DTaP, Tdap and Td Vaccines (1 - Tdap) 1974 Mammogram Screening 1995 Annual Medicare Wellness Visit 2020 Dexa Scan (General) 2020 Pneumococcal Vaccine: 50+ Years (3 of 3 - PPSV23 or [...] patient's age to complete this topic Insurance [facility] INSURANCE MEDICARE Care Teams Wheel Aligner Relationship Specialty Start Date End Date Osorio Billy MD [address] [place] [address] [place], [place] [id number] PCP - General ORTHOPAEDIC SURGERY 02/20/23
--- OUTSIDE RECORDS SUMMARY | 2024-07-09 10:58 | XMS_ITS | Patient Health Record ---
Author Organization [facility] Address [address] [place] [address] Care Team Providers Care Rn Case Manager Name Role Phone Ale MATA, Vahe Primary Care Provider UnavailLawson James Unavailable [phone] Migration, Provider Unavailable Unavailable Allergies No Known Allergies Reason For Referral No Information Medications Medication SIG (Take, Route, Frequency, Duration) Notes Start Date End Date Status Escitalopram Oxalate 10 MG 1 tablet Oral Once a day for 90 days Active Atorvastatin Calcium 40 MG TAKE 1 TABLET BY MOUTH EVERY DAY Oral for 90 Days Active Alendronate Sodium 70 MG Oral for 84 Days Active Social History Tobacco Use: Social History Observation Description Date Details (start date - stop date) Never Smoker NA - NA Sex Assigned At : Social History Observation Description Sex Assigned At Female Tobacco Control (Standard) Question Answer Notes Tobacco use: Nonsmoker Problems Problem Type SNOMED Code ICD Code Onset Dates Problem Status W/U Status Risk Notes Problem Major depression, single episode (30976958) Major depressive disorder, single episode, unspecified (F32.9) 06/08/19 24 Active confirmed Problem Generalized anxiety disorder (68579354) Generalized anxiety disorder (F41.1) 06/08/19 24 Active confirmed Problem Hyperlipidaemia (31569392) HLD (hyperlipidemia) (E78.5) 01/20/20 24 Active confirmed Problem Lumbosacral spondylosis without myelopathy (22946344) Spondylosis of lumbar region without myelopathy or radiculopathy (M47.816) 05/09/19 23 Active confirmed Vital Signs Heart Rate 72 /min 07/02/2024 Height-cm 156.21 cm 07/02/2024 Blood pressure diastolic 77 mm Hg 07/02/2024 Weight-kg 55.79 kg 07/02/2024 Height 61.50 in 07/02/2024 Blood pressure systolic 117 mm Hg 07/02/2024 Weight 123 lbs 07/02/2024 BMI 22.86 kg/m2 07/02/2024 Encounters Encounter Location Date Provider Diagnosis [address] [address] 09/12/2023 Lawson Maisha Major depressive disorder, single episode, unspecified F32.9 and Generalized anxiety disorder F41.[address] [address] 04/09/2024 Lawson Maisha Major depressive disorder, single episode, unspecified F32.9 ; HLD (hyperlipidemia) E78.5 ; Spondylosis of lumbar region without myelopathy or radiculopathy M47.816 and Generalized anxiety disorder F41.[address] [address] 07/02/2024 Lawson Maisha Encounter for screening for depression Z13.31 ; Encounter for screening for cardiovascular disorders Z13.6 ; Major depressive disorder, single episode, unspecified F32.9 ; HLD (hyperlipidemia) E78.5 ; Spondylosis of lumbar region without myelopathy or radiculopathy M47.816 and Generalized anxiety disorder F41.[address] [address] 08/11/2023 Provider Migration [address] [address] 08/12/2023 Provider Migration [address] [address] 03/04/2024 Lawson Maisha Assessments Encounter Date Diagnosis [...] spent a week at [facility], followed by a week at inpatient therapy in [facility]. - Plan: Continue monitoring progress [...] sending a new 10 mg prescription to [facility]. Physical Therapy - Assessment: Patient has completed physical therapy sessions at [facility] for about 2-3 weeks and is [...] spent a week at [facility], followed by a week at inpatient therapy in [facility] - Plan: Continue monitoring progress and encourage [...] sending a new 10 mg prescription to [facility]. Physical Therapy - Assessment: Patient has completed physical therapy sessions at [facility] for about 2-3 weeks and is [...] spent a week at [facility], followed by a week at inpatient therapy in [facility]. - Plan: Continue monitoring progress [...] sending a new 10 mg prescription to [facility]. Physical Therapy - Assessment: Patient has completed physical therapy sessions at [facility] for about 2-3 weeks and is no longer attending. - Plan: No further intervention needed at this time. Encourage the patient to continue practicing exercises and mobility activities learned during physical therapy sessions. 07/02/2024 Encounter for screening for depression (ICD-10 - Z13.31) 07/02/2024 Encounter for screening for cardiovascular disorders (ICD-10 - Z13.6) 04/09/2024 Generalized anxiety disorder (ICD-10 - F41.1) [...] spent a week at [facility], followed by a week at inpatient therapy in [facility]. - Plan: Continue monitoring progress [...] sending a new 10 mg prescription to [facility]. Physical Therapy - Assessment: Patient has completed physical therapy sessions at [facility] for about 2-3 weeks and is no longer attending. - Plan: No further intervention needed at this time. Encourage the patient to continue practicing exercises and mobility activities learned during physical therapy sessions. 07/02/2024 Major depressive disorder, single episode, unspecified (ICD-10 - F32.9) 07/02/2024 HLD (hyperlipidemia) (ICD-10 - E78.5) 07/02/2024 Spondylosis of lumbar region without myelopathy or radiculopathy (ICD-10 - M47.816) 07/02/2024 Generalized anxiety disorder (ICD-10 - F41.1) 07/02/2024 Verna Ponce, female patient with history of depression and anxiety, presents with ongoing concerns about leg and back pain, reporting overall improvement in mood but experiencing situational depression when inactive at home. Major Depressive Disorder, in partial remission Assessment: Patient reports overall improvement in mood with current medication regimen of escitalopram 10 mg daily. She experiences situational depression when inactive at home but finds relief through social interactions and family time. No recent major anxiety or panic attacks reported. Patient anticipates further mood improvement with better weather and planned vacations in September and October. Plan: - Continue escitalopram 10 mg PO daily - Refill escitalopram 10 mg for 90 days with one ref[facility] - Encourage continued social interactions and outdoor activities as weather improves - Follow up in 6 months Chronic pain (legs and back) Assessment: Patient reports ongoing discomfort in legs and back with no significant relief. Recent consultation with surgeon revealed possible hip ptosis, though x-rays were unremarkable. Exercise has been recommended as a management strategy. Plan: - Encourage regular exercise as tolerated, particularly walking outdoors when weather permits - Continue follow-up with orthopedic surgeon as needed Disclaimer: This note has been transcribed using speech recognition software and serves as a reflection of the patient's visit. While efforts have been made to ensure accuracy, there may be errors, including curing press operator inaccuracies and misspellings of medication names. This document should not be considered a verbatim record, and any discrepancies should be verified with the provider. Plan Of Treatment Next Appt Details Provider Name:Lawson Ferrera , 01/01/2025 10:30:00 AM, [address], [facility] [address], [place], [address], Insurance Providers Payer Name Payer Address Payer Phone Subscriber Number Group Number Insured Name Patient Relationship to Insured Coverage Start Date Coverage End Date Medicare-Wi Medicare [address] [place] [address] [id number] THOMAS PONCE Self - patient is the insured [facility] Insurance Medicare Supplement [address] [address] [place] [address] [id number] THOMAS PONCE Self - patient is the insured Medical (General) History Medical History History ICD Code Problems: Generalized anxiety disorder Major depressive disorder Obsessive-compulsive disorder Somatoform disorder ,
--- OUTSIDE RECORDS SUMMARY | 2024-07-09 10:58 | XMS_ITS | Continuity of Care Document ---
Author Organization [facility] Address [address] [place] [address] Phone Care Team Providers Care Loader Demolder Name Role Phone Cole OD, Rosendo Unavailable Unavailable Procedures Procedure Date Eye Exam & Treatment Refraction Eye Exam & Treatment Refraction Eye Exam & Treatment Eye Exam & Treatment Advance Directives Directive Yes / No Effective Date File Name No Information Encounters Encounter Description Practice Location Reason(s) For Visit Diagnoses Date Provider Providers Copied on Encounter [facility], [address] [place] [address] [address], [place], [place], [id number], tel:[phone] [facility] No Information Nov-0 2-201 0 Cole OD Rosendo. [address], [place], [place], [facility], . tel:[phone] [facility], [address] [place] [address] [address], [place], [place], [id number], tel:[phone] [facility] No Information May-0 3-200 9 Chantelle Zuniga [address], [place], [place], [facility], . tel:[phone] [facility], [address] [place] [address] [address], [place], [place], [id number], tel:[phone] [facility] No Information Apr- 6-200 8 Chantelle Zuniga [address], [place], [address], [place]. tel:[phone] [facility], [address], [place], [place], [id number], [place] tel:[phone] [facility] No Information 0-200 [address] , [address], [place], [address], [place]. tel:[phone] Family History Family Member Type Diagnosis Age At Onset No Information Payers Payer name Insurance type Covered alliance party ID Ana wesley(s) [facility] CI [id number] Social History Type Description Quantity Date Captured [...]
--- OUTSIDE RECORDS SUMMARY | 2024-07-09 10:58 | XMS_ITS | Clinical Summary ---
Author Organization [facility] Address [address] [place] [address] Care Team Providers Care Supervisor Front Name Role Phone Unavailable Primary Care Provider Unavailabl e Source Comments [facility] [place],non-owned Affiliates and Associated Physician Practices is amultiple site organization consisting of ambulatory clinics and hospital sitesin [place], [place], [place] and [place]. This disclosure is being madepursuant to the Care Everywhere program and may not contain all information available regarding this patient. Last updated 17.[facility] [place] Social History Tobacco Use Types Packs/Day Years [...] VACCINE ( - 2023-2 5 season) 2023 DEPRESSION SCREENING 03/26/2024 INFLUENZA VACCINE (Season Ended) 2024 Respiratory Syncytial Virus (RSV) Vaccine Pt: or [...] patient's age to complete this topic Insurance MEDICARE [facility] MEDICARE [facility]
--- OUTSIDE RECORDS SUMMARY | 2024-07-09 10:58 | XMS_ITS | Referral Summary ---
Author Organization [facility] Address [address] [place] [address] Care Team Providers Care Community Service Director Name Role Phone Vahe Aguilera MD Primary Care Provider [phone] Alia Ramey MD Unavailable Encounters Date Type Department Care Team Description 06/10/2024 12:20 PM CDT - 06/10/2024 11:59 PM CDT Hospital Encounter [facility] [address] [place], [place] [id number] Other fracture of right femur, initial encounter for closed fracture (HCC); Impending pathologic fracture Discharge Disposition: Discharge to home or self care 06/10/2024 1:10 PM CDT Office Visit [facility] Orthopaedic Surgery [address]th [place] [address] [place] [address] Yosvany Bello MD Other fracture of right femur, initial encounter for closed fracture (HCC) (Primary Dx); Impending pathologic fracture 04/14/2024 10:04 AM PROGRAM WRITER - 04/14/2024 11:59 PM PROGRAM WRITER Hospital Encounter [facility] Pain [place] [address] [facility] [address] [place] [address] Alia Ramey MD Lumbar radiculopathy Discharge Disposition: Discharge to home or self care 04/10/2024 Telephone [facility] at [place] [address] [facility] [address] [place] [address] Sanjana Welch, PIERRE pt call 04/10/2024 Telephone [facility] [address] 1st [place] [address] Maxine Johnston RN Pre Arrival from Last 3 Months Allergies No known [...] Comments Blood Pressure 127/78 04/14/2024 11:19 AM PROGRAM WRITER Pulse 69 04/14/2024 11:19 AM PROGRAM WRITER Temperature 36.6 C (97.8 F) 04/14/2024 10:11 AM PROGRAM WRITER Respiratory Rate 18 04/14/2024 11:1 9 AM PROGRAM WRITER Oxygen Saturation 99% 04/14/2024 11: 19 AM PROGRAM WRITER Inhaled Oxygen Concentration - - Weight 63.4 kg (139 lb 11.2 oz) 01/23/2024 5:06 PM CDT Height 157.5 cm (5' 2 ) 01/20/2024 5:48 AM CDT Body Mass Index 25.55 01/20/2024 5:48 AM CDT Plan of Treatment Not on file Goals Goal Patient Goal Type Associated Problems Recent Progress Patient-Stated? Author [facility] Chronic Pain Care Plan Chronic Care Management On track(2024 10:13 AM PROGRAM WRITER) No Sanjana Welch, RN Note: Problem: Chronic Pain Goals: 1. Minimize further functional decline 2. Maximize quality of life 3. Control pain Strategies: - Activity/exercise program recommendation - Conservative stepwise pain medicine strategy with multi-disciplinary approach - Recommend healthy lifestyle strategies and compensatory methods as needed [facility] Fall Prevention Care Plan Chronic Care Management On track(2024 10:13 AM PROGRAM WRITER) No Jesusita Martinez, RN Note: Problem: Falls Goals: 1. Maintain strength and balance as able 2. Prevent falls and fractures 3. Maximize safety of living environment Strategies: - Educate on fall prevention and follow-up as needed - Recommend activity/exercise program - Refer to allied health as needed - Recommend healthy lifestyle strategies and compensatory methods as needed Medical Devices Implanted Type Area Charge Loader Device Identifier Shelf Expiration Date Model / Serial / Lot Synthes Nail 140d 400mm 11mm Intramedullary Femoral Greater Trochanter Right Titanium Niobium Aluminum Adult 8 Hole Cannulated Reconstruction Light Green 5/6.5mm Screw .170s - S0 - [id number] Implanted:Qty: 1 on 01/20/2024 by Chito Garay MD at [facility] Nail Right: Femur Synthes I .17 0S / 0 / [employer] Nail 10mm 400mm Fem Greater Trochanter Left T2 Alpha Im Strl 2331-1040s - [id number] Implanted:Qty: 1 on 01/21/2024 by Yosvany Bello MD at [facility] Nail Left: Femur [employer] 01/23/2033 8854-4697 S / / [id number] Synthes Screw Bone Locking Cannulated Hip Threaded 6.5x85mm Recon 04.046.685s - [id number] Implanted:Qty: 1 on 01/20/2024 by Chito Garay MD at [facility] Screw Right: Femur Synthes I 04.046.68 5S / / Synthes Screw Bone Locking Cannulated Femoral Proximal Full Thread Light Green 5.0x40mm Titanium 04.045.040 - [id number] Implanted:Qty: 2 on 01/20/2024 by Chito Garay MD at [facility] Screw Right: Femur Synthes 04.045.04 0 / / Synthes Screw Bone Locking Cannulated Femoral Proximal Full Thread Light Green 5.0x46mm Titanium 04.045.046 - [id number] Implanted:Qty: 1 on 01/20/2024 by Chito Garay MD at [facility] Screw Right: Femur Synthes I 04.045.04 6 / / [employer] 6.5mm 90mm Lag Cannulated Femur Screw Bone Titanium Sterile 1897-6090s - [id number] Implanted:Qty: 1 on 01/21/2024 by Yosvany Bello MD at [facility] Screw Left: Femur [employer] [id number] 01/23/2025 8512-1268 S / / [id number] [employer] Screw Bone 5mm 35mm T2 Alpha Lock Strl 2360-5035s - [id number] Implanted:Qty: 1 on 01/21/2024 by Yosvany Bello MD at [facility] Screw Left: Femur [employer] [id number] 08/23/2033 1726-5171 S / / [id number] [employer] Screw Bone 5mm 45mm T2 Alpha Lock Strl 2360-5045s - [id number] Implanted:Qty: 1 on 01/21/2024 by Yosvany Bello MD at [facility] Screw Left: Femur [employer] [id number] 10/23/2032 3664-9360 S / / [id number] Explanted Type Area Charge Loader Device Identifier Shelf Expiration Date Model / Serial / Lot [employer] K-Wire Drill-Tip Recon 7163240s - [id number] Explanted:Qty: 1 on 01/21/2024 at [facility] Left: Femur [employer] [id number] 01/23/2031 8556-1785 S / / [id number] [employer] K-Wire Drill-Tip Recon 048-3240s - [id number] Explanted:Qty: 1 on 01/21/2024 by Yosvany Bello MD at [facility] Left: Femur [employer] [id number] 01/23/2030 8683-8640 S / / [id number] Procedures Procedure Name Priority Date/Time Associated Diagnosis [...] Read Routine (OP Routine) 04/14/2024 11:16 AM PROGRAM WRITER Lumbar radiculopathy from Last 3 Months Results [...] esult * Imaging Lumbar/Caudal Epidural Steroid INJ (34623) (04/14/2024 11:16 AM PROGRAM WRITER) Narrative [facility] - 04/14/2024 11:27 AM PROGRAM WRITER The images from this study are not interpreted by Radiology. Please refer to the physician's procedure / OR operative note. us Alia Ramey MD IMG PAIN MGMT PROCEDU RES Final Result RAD_PACS_[facility] from Last 3 Months Insurance MEDICARE [employer] MEDICARE [employer] MEDICARE [employer] Advance Directives For more information, please contact: [phone] * Full Code (Latest Code Status on File) Date Activated Date Inactivated Comments 01/20/2024 12:27 PM 01/24/2024 8:25 PM * Full Code Date Activated Date Inactivated Comments 01/20/2024 12:27 PM 01/20/2024 12:27 PM * Full Code Date Activated Date Inactivated Comments 11/09/2017 2:05 PM 11/10/2017 3:04 AM * Full Code Date Activated Date Inactivated Comments 11/09/2017 2:05 PM 11/09/2017 2:05 PM Care Teams Community Service Director Relationship Specialty Start Date End Date Vahe Aguilera MD [address] [place] [address] [place] [address] PCP - General Internal Medicine 10/02/17 Alia Ramey MD [address] [place] [address] Consulting Physician Pain Management 05/09/22
--- OUTSIDE RECORDS SUMMARY | 2024-07-09 10:58 | XMS_ITS | Encounter Summary ---
Author Organization [facility] Address [address] [place] [address] Care Team Providers Care Platinum Smith Name Role Phone Unavailable Primary Care Provider Unavailabl e Encounter Details Date Type Department Care Team (Late st Contact Info) Description 10/31/2023 Lab Requisition [facility] - DermPath Lab [address] [place] [address] Christy Moran MD [address] [place] [address] Neoplasm of uncertain behavior of skin [...] AM CDT) Case Report Dermatopathology Report Case: [id number] Authorizing Provider: Christy Moran MD Collected: 10/31/2023 12:00 AM Ordering Location: [facility] Physician [facility] - Received: 11/01/2023 12:29 PM DermPath Lab [...] measuring 4x3x1 mm. Jar 0. 12:28 PM T DERMATOPATHOLOGY LABORATORY Microscopic Description [...] characteristic determined by the Dermatopathology Laboratory at [facility], directed by Dr. Nery Arteaga. These tests need not be, and therefore are not, approved by the [place] Food and Drug Administration. The tests are used for clinical purposes. Billing Codes Specimen Charges Stain Charges 69989 1 12:28 PM CDT DERMATOPATHOLOGY LABORATORY Embedded Images 12:28 PM CDT DERMATOPATHOLOGY LABORATORY Pathology/Cytolog y TISSUE SPECIMEN FROM SKIN / Unknown 10/31/2023 11/01/2023 12:29 PM CDT us Christy Moran MD LAB - PATHOLOGY/CYTOLOGY ORDERAB LES Final Result DERMATOPATHOLOGY LABORATORY [facility] - Department of Dermatology [address] [phone] documented in this encounter Visit Diagnoses Diagnosis Neoplasm of uncertain behavior of skin documented in this encounter
== END 2024-07-09 10:01 | disposition home or self-care (01) ==
LOC: ANHIMG 10:02
PROVIDERS: PCP Internal Medicine; Visit Provider Obstetrics & Gynecology
DX: Z12.31 Encounter for screening mammogram for malignant neoplasm of breast (principal)
CPT/HCPCS: 77063; 77067

== ENCOUNTER 2025-02-06 14:13 | Outpatient (CLI) | payer MEDICARE, SELFPAY ==
--- NOTE | ~2025-02-06 | XR_ITS ---
XR lumbar spine 2-3V Indication: M54.50Low back pain, unspecified, chronic pain getting worse Comparison: None Findings: There is a levoconvex scoliosis. There are remote sprain endplate fractures of L1 and L2, no acute fracture or subluxation. Minimal to mild loss of disc height throughout. Soft tissues unremarkable Impression: No acute abnormality. Reviewed, dictated and finalized at location P. ERMAKING SUPERVISOR Impression: No acute abnormality.
== END 2025-02-06 14:14 | disposition home or self-care (01) ==
PROVIDERS: PCP Internal Medicine; Visit Provider Internal Medicine
DX: M54.50 Low back pain, unspecified (principal)
CPT/HCPCS: 72100

== ENCOUNTER 2025-03-23 13:57 | Outpatient (CLI) | payer MEDICARE, SELFPAY ==
--- NOTE | ~2025-03-23 | DEXA_ITS ---
Bone Density Report Name: THOMAS PONCE Age: 69 Sex: Female Ethnicity: White Date of : 1955 Indication: osteopenia; monitoring treatment; height loss; prior fracture; Referring Provider: JESUS NGUYEN Study: Bone densitometry was performed. Exam Date: March 23, 2025 Accession number: [id number] Bone Density: Region BMD T-score Z-score Classification AP Spine(L1-L4) 0.733 -2.9 -0.8 Osteoporosis World Health Organization criteria for BMD impression classify patients as: Normal (T-score at or above -1.0), Osteopenia (T-score between -1.0 and -2.5), or Osteoporosis (T-score at or below -2.5). Previous Exams: Region Exam Age BMD T-score BMD Change BMD Change Date g/cm2 vs Baseline vs Previous AP Spine (L1-L4) 03/23/2025 69 0.733 -2.9 -0.004 (-0.5%) -0.067 (-8.4%) 03/09/2023 67 0.800 -2.2 0.063 (8.6%)# 0.007 (0.9%)# 11/09/2021 66 0.793 -2.3 0.057 (7.7%)* 0.018 (2.3%)# 09/15/2019 64 0.775 -2.5 0.039 (5.3%)# -0.008 (-1.1%) 08/31/2017 62 0.784 -2.4 0.047 (6.4%)# 0.009 (1.2%)# 08/19/2015 60 0.774 -2.5 0.038 (5.1%)* -0.012 (-1.5%) 08/15/2013 58 0.786 -2.4 0.050 (6.8%)* 0.050 (6.8%)* 08/03/2011 56 0.736 -2.8 *Denotes significance at 95% confidence level, LSC for AP Spine = 0.022 g/cm2 # Denotes dissimilar scan types or analysis methods Clinical Information Provided by Patient: Have had a previous hip or vertebral fracture Has had a low trauma fracture Is being treated for osteoporosis Has used the following medications: Fosamax (i.e. alendronate), Vitamin D, Calcium Patient maximum height was 66 Menopause Age: 52 Drinks caffeinated beverages Onset of menses at age 12 Number of children 2 Impression: The patient has established osteoporosis, based on the Total Spine T-score and the existence of a prior fracture. The patient has risk factors, including: previous fracture. The BMD for the AP Spine (L1-L4) decreased, changing by -8.4% since the last DXA exam. Discussion: SIGNIFICANT BONE LOSS OBSERVED. Adherence to therapy (including calcium and vitamin D intake) should be assessed. If compliance is not a factor, review management and exclusion of secondary causes of bone loss. It is important to ask patients whether they are taking their medications and to encourage continued and appropriate compliance with their osteoporosis therapies to reduce fracture risk. It is also important to review their risk factors and encourage appropriate calcium and vitamin D intakes, exercise, fall prevention and other lifestyle measures. Follow-Up: Consider a repeat BMD and Vertebral Fracture Assessment (VFA) exam in 2 years or sooner if medically necessary, to reassess this patient's status. Reported by: JOHNATHAN on 03/23/2025 2:37:00 PM. Reviewed, dictated and finalized at location A.
--- OUTSIDE RECORDS SUMMARY | 2025-03-23 14:11 | XMS_ITS | Clinical Summary ---
Author Organization [facility] Address [address] [place] [address] Care Team Providers Care Distillery Supervisor Name Role Phone Unavailable Primary Care Provider Unavailabl e Source Comments [facility],non-owned Affiliates and Associated Physician Practices is amultiple site organization consisting of ambulatory clinics and hospital sitesin [place], [place], [place]. This disclosure is being madepursuant to the Care Everywhere program and may not contain all information available regarding this patient. Last updated 17.[facility] Social History Tobacco Use Types Packs/Day Years [...] 2005 ZOSTER VACCINE (1 of 2) 2005 DEPRESSION SCREENING 03/26/2024 COVID-19 VACCINE (1 - 2024-2 6 season) 2024 INFLUENZA VACCINE (#1) 2024 Respiratory Syncytial Virus (RSV) Vaccine Pt: [...] age to complete this topic Insurance MEDICARE [facility] MEDICARE [facility]
--- OUTSIDE RECORDS SUMMARY | 2025-03-23 14:11 | XMS_ITS | Encounter Summary ---
Author Organization [facility] Address [address] [place] [address] Care Team Providers Care Cook Larder Name Role Phone Unavailable Primary Care Provider Unavailabl e Encounter Details Date Type Department Care Team (Late st Contact Info) Description 08/15/2023 Lab Requisition [facility] - DermPath Lab [address] [place] [address] Christy Moran MD [address] [address] Neoplasm of uncertain behavior of skin [...] AM CDT) Case Report Dermatopathology Report Case: [id number] Authorizing Provider: Christy Moran MD Collected: 08/15/2023 12:00 AM Ordering Location: [facility] - Received: 08/16/2023 01:53 PM DermPath Lab Pathologist: Bernadette Andrews MD Specimen: Skin, right inferior medial forehead 12:46 PM CDT DERMATOPATHOLOGY LABORATORY Final Diagnosis Specimen A. SKIN, right inferior medial forehead: BASAL CELL CARCINOMA, INFILTRATIVE PATTERN (C44.319) 12:46 PM CDT DERMATOPATHOLOGY LABORATORY at 1246 CDT Clinical History BCC 12:46 PM CDT DERMATOPATHOLOGY [...] characteristic determined by the Dermatopathology Laboratory at [facility], directed by Dr. Nery Arteaga. These tests need not be, and therefore are not, approved by the [place] Food and Drug Administration. The tests are used for clinical purposes. Billing Codes Specimen Charges Stain Charges 44921 1 12:46 PM CDT DERMATOPATHOLOGY LABORATORY Embedded Images 12:46 PM CDT DERMATOPATHOLOGY LABORATORY Pathology/Cytolog y TISSUE SPECIMEN FROM SKIN / Unknown 08/15/2023 08/16/2023 1:53 PM CDT us Christy Moran MD LAB - PATHOLOGY/CYTOLOGY ORDERAB LES Final Result DERMATOPATHOLOGY LABORATORY [facility] - Department of Dermatology [address], [address] [phone] documented in this encounter Visit Diagnoses Diagnosis Neoplasm of uncertain behavior of skin documented in this encounter
--- OUTSIDE RECORDS SUMMARY | 2025-03-23 14:11 | XMS_ITS | Patient Health Record ---
Author Organization [facility] As [email or web address] [facility] Address [address] [place] [address] Care Team Providers Care Scrap Carrier Name Role Phone Vahe Aguilera MD Primary Care Provider Lili Jesusita Reese Unavailable [phone] Lawosn Ferrera Unavailable [phone] Allergies No Known Allergies Reason For Referral No Information Medications Medication SIG (Take, Route, Frequency, Duration) Notes Start Date End Date Status Escitalopram Oxalate 10 MG Tablet TAKE 1 TABLET BY MOUTH DAILY Active Atorvastatin Calcium 40 MG Tablet TAKE 1 TABLET BY MOUTH EVERY DAY Oral; Duration: 90 Days Active Alendronate Sodium 70 MG Tablet Oral; Duration: 84 Days Not- Taking Social History Tobacco Use: Social History Observation Description Date Details (start date - stop date) Never Smoker NA - NA Sex Assigned At : Social History Observation Description Sex Assigned At Female Social History Miscellaneous: Social Info Question Answer Notes Advance Care Planning Are you your own decision-maker Yes Do you have Power of Pneumatic Tool Repairer for Health or Medi camila? No Advance Directive Living Will Tobacco Use: Social Info Question Answer Notes Tobacco Control (Standard) Tobacco use: Nonsmoker Additional Details Category Social Info Options Details Migrated Social History Migrated Social History Alcohol Intake: None 03/24/2022,Tobacco Years: Never smoker 03/24/2022 Section Notes: Tobacco use: Denies Occupation: Retired, previously worked at a [employer] Living situation: Lives with Drug use: Denies Alcohol use: Denies Problems Problem Type SNOMED Code ICD Code Onset Dates Problem Status W/U Status Risk Notes Problem Major depression, single episode (66878271) Major depressive disorder, single episode, unspecified (F32.9) 06/08/19 24 Active confirmed Problem Generalized anxiety disorder (40792632) Generalized anxiety disorder (F41.1) 06/08/19 24 Active confirmed Problem Hyperlipidaemia (67164228) HLD (hyperlipidemia) (E78.5) 01/20/20 24 Active confirmed Problem Lumbosacral spondylosis without myelopathy (61420891) Spondylosis of lumbar region without myelopathy or radiculopathy (M47.816) 05/09/19 23 Active confirmed Vital Signs Heart Rate 76 /min 01/01/2025 Height-cm 156.21 cm 01/01/2025 Blood pressure diastolic 78 mm Hg 01/01/2025 Weight-kg 55.79 kg 01/01/2025 Height 61.50 in 01/01/2025 Blood pressure systolic 116 mm Hg 01/01/2025 Weight 123 lbs 01/01/2025 BMI 22.86 kg/m2 01/01/2025 Encounters Encounter Location Date Provider Diagnosis [facility] [address] [address] 04/09/2024 Lawson Ferrera Major depressive disorder, single episode, unspecified F32.9 ; HLD (hyperlipidemia) E78.5 ; Spondylosis of lumbar region without myelopathy or radiculopathy M47.816 and Generalized anxiety disorder F41.[address] [facility] [address] [place] [address] [phone] 07/02/2024 Lawson Ferrera Encounter for screen ing for depression Z13.31 ; Encounter for screening for cardiovascular disorders Z13.6 ; Major depressive disorder, single episode, unspecified F32.9 ; HLD (hyperlipidemia) E78.5 ; Spondylosis of lumbar region without myelopathy or radiculopathy M47.816 and Generalized anxiety disorder F41.1 [facility] [address] [facility] [address] [address] 01/01/2025 Jesusita Siobhan Generalized anxiety disorder F41.1 and Major depressive disorder, single episode, unspecified F32.9 Assessments Encounter Date Diagnosis (ICD Code) Assessment [...] right side. Patient spent a week at [facility], followed by a week at inpatient therapy in [facility]. - Plan: Continue monitoring progress [...] sending a new 10 mg prescription to [facility]. Physical Therapy - Assessment: Patient has completed physical therapy sessions at [facility] for about 2-3 weeks and is [...] right side. Patient spent a week at [facility], followed by a week at inpatient therapy in [facility]. - Plan: Continue monitoring progress [...] sending a new 10 mg prescription to [facility]. Physical Therapy - Assessment: Patient has completed physical therapy sessions at [facility] for about 2-3 weeks and is [...] right side. Patient spent a week at [facility], followed by a week at inpatient therapy in [facility]. - Plan: Continue monitoring progress [...] sending a new 10 mg prescription to [facility]. Physical Therapy - Assessment: Patient has completed physical therapy sessions at [facility] for about 2-3 weeks and is no longer attending. - Plan: No further intervention needed at this time. Encourage the patient to continue practicing exercises and mobility activities learned during physical therapy sessions. 07/02/2024 Encounter for screening for depression (ICD-10 - Z13.31) 01/01/2025 Major depressive disorder, single episode, unspecified (ICD-10 - F32.9) Patient reported periods of feeling down and depressed. Symptoms have improved and patient feels stable on current medication. No medication changes recommended at this time. - Continue Lexapro 10 mg daily. - Monitor for any changes in mood and follow up in three months unless symptoms worsen. 01/01/2025 Generalized anxiety disorder (ICD-10 - F41.1) Persistent anxiety and worry about everything, especially in the mornings. Symptoms improve once she gets up and moving. Patient feels stable on current medication regimen. No medication changes recommended at this time. - Continue Lexapro 10 mg daily. - Monitor for any changes in symptoms and follow up in three months unless symptoms worsen. 07/02/2024 Encounter for screening for cardiovascular disorders [...] right side. Patient spent a week at [facility], followed by a week at inpatient therapy in [facility]. - Plan: Continue monitoring progress [...] sending a new 10 mg prescription to [facility]. Physical Therapy - Assessment: Patient has completed physical therapy sessions at [facility] for about 2-3 weeks and is [...] Generalized anxiety disorder (ICD-10 - F41.1) 07/02/2024 Other Thomas Ponce, female patient with history of depression [...] with one refill, to be sent to [facility] - Encourage continued social interactions and outdoor [...] ensure accuracy, there may be errors, including director of strategic sourcing inaccuracies and misspellings of medication names. This document should not be considered a verbatim record, and any discrepancies should be verified with the provider. 01/01/2025 Other Gait, Strength, and Balance Training ExercisesThis handout provides simple exercises to improve your gait, strength, and balance. Theseexercises can help prevent falls, improve mobility, and enhance overall function. Perform them in asafe space, use support if needed, and stop if you feel pain or dizziness.1. Gait Training Exercises- Walk in a straight line for 10-20 feet, heel-to-toe.- Step over small objects (cones or rolled towels).- Practice walking sideways and backwards.- Use a treadmill if available, under supervision.2. Balance Exercises- Stand on one foot for 10-30 seconds; switch legs.- Walk heel-to-toe in a straight line.- Use a balance board or cushion to challenge stability.- Practice rising from a chair without using your hands.3. Strength Training Exercises- [id number]: rise from a chair repeatedly.- Wall push-ups: stand at arm's length from a wall and push.- Step-ups on a low step or stairs.- Leg lifts while seated or lying down.Consult your primary care provider (PCP) before starting these exercises, especially if you havemedical conditions or difficulty performing them Plan Of Treatment Next Appt Details Provider Name:Jesusita Mccann, 04/03/2025 10:15:00 AM, [address], [facility] [facility] [address], [place], [address], Insurance Providers Payer Name Payer Address Payer Phone Subscriber Number Group Number Insured Name Patient Relationship to Insured Coverage Start Date Coverage End Date [place] Medicare [address] [place] [phone] [id number] THOMAS PONCE Self - patient is the insured [facility] [employer] Medicare Supplement [address] [address] CLARITA Elliott, [place] [phone] [id number] THOMAS PONCE Self - patient is the insured Medical (General) History Medical History History ICD Code Problems: Generalized anxiety disorder Major depressive disorder Obsessive-compulsive disorder Somatoform disorder , Generalized anxiety disorder Major depressive disorder, single episod e, unspecified History of bilateral femur fractures, oc tober last year Surgical History Surgery Date(Month/Year) rods put in both legs 2023 Right femur fracture repair, following fall in shower - december (last year) 12/2023 Left femur stress fracture r epair, following fall in shower - december (last year) 12/2023 rods put in both legs Hospitalization History Reason Date(Month/Year) surgery 2023 Right and left femur fractur es, [facility], 1 week (december last ) 12/2023 Physical therapy, [place], 1 week
--- OUTSIDE RECORDS SUMMARY | 2025-03-23 14:11 | XMS_ITS | Encounter Summary ---
Author Organization [facility] Address [address] [place] [address] Care Team Providers Care Chicken Cutter Name Role Phone Unavailable Primary Care Provider Unavailabl e Encounter Details Date Type Department Care Team (Late st Contact Info) Description 10/31/2023 Lab Requisition [facility] - DermPath Lab [address] [place] [address] Christy Moran MD [address] [place] [address] Neoplasm of uncertain behavior of [...] AM CDT) Case Report Dermatopathology Report Case: [id number] Authorizing Provider: Christy Moran MD Collected: 10/31/2023 12:00 AM Ordering Location: [facility]ician [facility] - Received: 11/01/2023 12:29 PM DermPath Lab Pathologist: Margaret Andrews MD Specimen: Skin, nasal dorsum 12:28 PM CDT DERMATOPATHOLOGY LABORATORY Final Diagnosis Specimen A. SKIN, nasal dorsum: BASAL CELL CARCINOMA, INFILTRATIVE PATTERN (C44.311) 12:28 PM CDT DERMATOPATHOLOGY LABORATORY at 1228 CDT Clinical History BCC 12:28 PM CDT DERMATOPATHOLOGY [...] characteristic determined by the Dermatopathology Laboratory at [facility], directed by Dr. Nery Arteaga. These tests need not be, and therefore are not, approved by the [place] Food and Drug Administration. The tests are used for clinical purposes. Billing Codes Specimen Charges Stain Charges 16384 1 12:28 PM CDT DERMATOPATHOLOGY LABORATORY Embedded Images 12:28 PM CDT DERMATOPATHOLOGY LABORATORY Pathology/Cytolog y TISSUE SPECIMEN FROM SKIN / Unknown 10/31/2023 11/01/2023 12:29 PM CDT us Christy Moran MD LAB - PATHOLOGY/CYTOLOGY ORDERAB LES Final Result DERMATOPATHOLOGY LABORATORY [facility] - Department of Dermatology [address] [phone] documented in this encounter Visit Diagnoses Diagnosis Neoplasm of uncertain behavior of skin documented in this encounter
--- OUTSIDE RECORDS SUMMARY | 2025-03-23 14:11 | XMS_ITS | Clinical Summary ---
Author Organization [facility] Address [address] [place] [address] Care Team Providers Care Virologist Name Role Phone Vahe Aguilera MD Primary Care Provider [phone] Alia Ramey MD Unavailable Allergies No known [...] as needed for dry eyes 4 Active naproxen (ALEVE) 220 mg tablet Take 3 tablets (660 mg total) by mouth daily as needed for pain Active Active Problems Problem Noted Date Diagnosed [...] without myelopathy or radiculopathy 05/09/2022 Cervicalgia 07/09/2018 Surgical History Surgery Date Site/Laterality Comments BIOPSY [...] Sign Reading Time Taken Comments Blood Pressure 151/66 09/03/2024 9:10 AM CDT Pulse 65 09/03/2024 9:10 AM CDT Temperature 36.7 C (98 F) 09/03/2024 8:49 AM CDT Respiratory Rate 16 09/03/2024 9:10 AM CDT Oxygen Saturation 100% 09/03/2024 9:10 AM CDT Inhaled Oxygen Concentration - - Weight 63.4 kg (139 lb 11.2 oz) 01/23/2024 5:06 PM CDT Height 157.5 cm (5' 2) 01/20/2024 5:48 AM CDT Body Mass Index [...] Depression Screening 03/28/2023 03/28/2022 Influenza Vaccine (#1) 2024 , 12/24/2018, 12/10/2017, Additional history exists Fall Risk Assessment 09/03/2025 09/03/2024, 04/14/2024, 01/24/2024, Additional history exists Zoster Vaccine Completed 07/07/2018, 03/28, 12/06/2012 Goals Goal Patient Goal Type Associated Problems Recent Progress Patient-Stated? Author [facility] Chronic Pain Care Plan Chronic Care Management No change(09/03 8:46 AM CDT) No Sanjana [place], PIERRE Note: Problem: Chronic Pain Goals: 1. Minimize further functional decline 2. Maximize quality of life 3. Control pain Strategies: - Activity/exercise program recommendation - Conservative stepwise pain medicine strategy with multi-disciplinary approach - Recommend healthy lifestyle strategies and compensatory methods as needed [facility] Fall Prevention Care Plan Chronic Care Management On track(2024 8:46 AM CDT) No Jesusita Martinez, PIERRE Note: Problem: Falls Goals: 1. Maintain strength and balance as able 2. Prevent falls and fractures 3. Maximize safety of living environment Strategies: - Educate on fall prevention and follow-up as needed - Recommend activity/exercise program - Refer to allied health as needed - Recommend healthy lifestyle strategies and compensatory methods as needed Medical Devices Implanted Type Area Ground Mixer Device Identifier Shelf Expiration Date Model / Serial / Lot Synthes Nail 140d 400mm 11mm Intramedullary Femoral Greater Trochanter Right Titanium Niobium Aluminum Adult 8 Hole Cannulated Reconstruction Light Green 5/6.5mm Screw 04.033.170s - S0 - [id number] Implanted:Qty: 1 on 01/20/2024 by Chito Garay MD at [facility] Nail Right: Femur Synthes I 04.033.17 0S / 0 / [employer] Nail 10mm 400mm Fem Greater Trochanter Left T2 Alpha Im Strl 2331-1040s - [id number] Implanted:Qty: 1 on 01/21/2024 by Yosvany Bello MD at [facility] Nail Left: Femur [employer] 01/23/2033 4418-3339 S / / [id number] Synthes Screw Bone Locking Cannulated Hip Threaded 6.5x85mm Recon 04.046.685s - [id number] Implanted:Qty: 1 on 01/20/2024 by Chito Garay MD at [facility] Screw Right: Femur Synthes I 04.046.68 5S / / Synthes Screw Bone Locking Cannulated Femoral Proximal Full Thread Light Green 5.0x40mm Titanium 04.045.040 - [id number] Implanted:Qty: 2 on 01/20/2024 by Chito Garay MD at [facility] Screw Right: Femur Synthes 04.045.04 0 / / Synthes Screw Bone Locking Cannulated Femoral Proximal Full Thread Light Green 5.0x46mm Titanium 04.045.046 - [id number] Implanted:Qty: 1 on 01/20/2024 by Chito Garay MD at [facility] Screw Right: Femur Synthes I 04.045.04 6 / / [employer] 6.5mm 90mm Lag Cannulated Femur Screw Bone Titanium Sterile 1897-6090s - [id number] Implanted:Qty: 1 on 01/21/2024 by Yosvany Bello MD at [facility] Screw Left: Femur [employer] [id number] 01/23/2025 1916-5659 S / / [id number] [employer] Screw Bone 5mm 35mm T2 Alpha Lock Strl 2360-5035s - [id number] Implanted:Qty: 1 on 01/21/2024 by Yosvany Bello MD at [facility] Screw Left: Femur [employer] [id number] 08/23/2033 5409-2462 S / / [id number] [employer] Screw Bone 5mm 45mm T2 Alpha Lock Strl 2360-5045s - [id number] Implanted:Qty: 1 on 01/21/2024 by Yosvany Bello MD at [facility] Screw Left: Femur [employer] [id number] 10/23/2032 3505-6630 S / / [id number] Explanted Type Area Ground Mixer Device Identifier Shelf Expiration Date Model / Serial / Lot [employer] K-Wire Drill-Tip Recon 9395-122s - [id number] Explanted:Qty: 1 on 01/21/2024 at [facility] Left: Femur [employer] [id number] 01/23/20312350-3240 S / / [id number] [employer] K-Wire Drill-Tip Recon s - [id number] Explanted:Qty: 1 on 01/21/2024 by Yosvany Bello MD at [facility] Left: Femur [employer] [id number] 01/23/2030 8110-8205 S / / [id number] Insurance MEDICARE [employer] MEDICARE [employer] MEDICARE [employer] Advance Directives For more information, please contact: [phone] * Full Code (Latest Code Status on File) Date Activated Date Inactivated Comments 01/20/2024 12:27 PM 01/24/2024 8:25 PM * Full Code Date Activated Date Inactivated Comments 01/20/2024 12:27 PM 01/20/2024 12:27 PM * Full Code Date Activated Date Inactivated Comments 11/09/2017 2:05 PM 11/10/2017 3:04 AM * Full Code Date Activated Date Inactivated Comments 11/09/2017 2:05 PM 11/09/2017 2:05 PM Care Teams Virologist Relationship Specialty Start Date End Date Vahe Aguilera MD PCP - General Internal Medicine 10/02/17 Alia Ramey MD [address] [facility] [place] [address] Consulting Physician Pain Management 05/09/22
--- OUTSIDE RECORDS SUMMARY | 2025-03-23 14:11 | XMS_ITS | Clinical Summary ---
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 Gender Identity Not on file Sexual Orientation Not on file Plan of Treatment Health Maintenance Due Date Last Done Comments Colorectal Cancer Screening Colonoscopy (10 Years) 1955 Hepatitis C 1973 DTaP, Tdap and Td Vaccines (1 - Tdap) 1974 Mammogram Screening 1995 Annual Medicare Wellness Visit 2020 Dexa Scan (General) 2020 Pneumococcal Vaccine: 50+ Years (3 of 3 - PCV20 or PCV21) 12/10/2022 12/10/2017, 12/07/2016 COVID-19 Vaccine ( season) 2024 01/25/2023, 09/18/2022, 01/26/2022, Additional history exists Influenza Adult (#1) 2024 11/27/2019, 12/24/2018, 12/10/2017, Additional history exists Zoster Vaccines Completed 07/07/2018, 03/28, 12/06/2012 RSV Immunization or 60+ Years Completed 02/01/2023 Hepatitis A Vaccines Aged Out No long er eligible based on patient's age to complete this topic Meningococcal B Vaccine Aged Out No l onger eligible based on patient's age to complete this topic Meningococcal Vaccine Aged Out No roger laurie eligible based on patient's age to complete this topic RSV Immunizations Under 20 Months Aged Out No longer eligible based on patient's age to complete this topic Insurance [facility] INSURANCE MEDICARE Care Teams Annual Greenhouse Manager Relationship Specialty Start Date End Date Osorio Billy MD PCP - General ORTHOPAEDIC SURGERY 02/20/23
== END 2025-03-23 13:58 | disposition home or self-care (01) ==
PROVIDERS: PCP Internal Medicine; Visit Provider Obstetrics & Gynecology
DX: M81.0 Age-related osteoporosis without current pathological fracture (principal); Z78.0 Asymptomatic menopausal state
CPT/HCPCS: 77080